=== PATIENT | male | born 1940 | race Caucasian/White ===

== ENCOUNTER 2019-07-12 18:48 | Observation (INO) | payer MEDICARE, SELFPAY ==
--- NOTE | ~2019-07-12 | XR_ITS ---
EXAMINATION: XR chest 1V portable DATE: 07/12/2019 19:31 INDICATION: Cough, dizziness and hypertension TECHNIQUE: frontal view of the chest was obtained. COMPARISON: Chest radiograph dated 12/01/04 FINDINGS: Mild bibasilar airspace opacities. No pleural effusion or pneumothorax. The cardiomediastinal silhoue tte is normal. Atherosclerotic aorta. Mild thoracic spondylosis. IMPRESSION: 1. Mild bibasilar opacities which could represent atelectasis or pneumonia. Reviewed, dictated and finalized at location A. ALLATION SPECIALIST
--- NOTE | ~2019-07-12 | CT_ITS ---
EXAMINATION: CT brain wo con DATE: 07/12/2019 19:25 INDICATION: Dizziness and acute generalized weakness TECHNIQUE: Computed tomography (CT) of the head was performed without intravenous contrast. Sagittal and coronal reconstructions were performed. The mA was adjusted according to patient size. Iterative reconstruction technique was employed. The dose-length product was 605.33 mGy-cm. COMPARISON: None FINDINGS: No acute intracranial hemorrhage, acute infarction or abnormal extra axial fluid collection. There is mild scattered white matter hypoattenuation consistent with chronic small vessel ischemic disease. S ymmetric prominence of the sulci and ventricles consistent with mild age-appropriate diffuse cerebral volume loss. No mass/mass effect. Mild to moderate mucosal thickening throughout the paranasal sinu ses. The orbits and mastoid air cells are normal. Linear scar along the right frontal scalp. Intracra nial calcified cerebral atherosclerosis is noted. IMPRESSION: 1. No acute intracranial process. 2. Age-related changes including mild to moderate diffuse volume loss and mild scattered white matter hypoattenuation consistent with chronic small vessel ischemic disease. Reviewed, dictated and finalized at location A. NCIAL PLANNING ASSISTANT IMPRESSION: 1. No acute intracranial process. 2. Age-related changes including mild to moderate diffuse volume loss and mild scattered white matter hypoattenuation consistent with chronic small vessel isc hemic disease.
--- NOTE | ~2019-07-12 | MR_ITS ---
EXAMINATION: MR brain/brain stem wo/w con DATE: 07/13/2019 11:12 INDICATION: Dizziness. TECHNIQUE: Magnetic resonance imaging (MRI) of the brain and brainstem was performed without and with 14 mL is MultiHance intravenous contrast. Sequences included sagittal and axial T1-weighted FSE, axi al diffusion-weighted FS EPI, axial T2*-weighted GRE, axial T2-weighted FLAIR Propeller, and axial T2 -weighted Propeller. Postcontrast sequences included axial and coronal T1-weighted FSE. Apparent diff usion coefficient (ADC) maps were created. COMPARISON: Head CT 07/04/2019 FINDINGS: There is no intracranial hemorrhage, acute infarction, or abnormal intracranial mass lesion . The ventricles are normal in size. There is mucosal thickening in the paranasal sinuses. The orbits are normal. The mastoid air cells are normal. IMPRESSION: 1. Normal brain. Reviewed, dictated and finalized at location A. NTORY WORKER IMPRESSION: 1. Normal brain.
--- NOTE | ~2019-07-12 | CT_ITS ---
EXAMINATION: CTA BRAIN/CAROTID DATE: 07/12/2019 23:42 INDICATION: Dizziness and generalized weakness TECHNIQUE: Computed tomographic angiography (CTA) of the head and neck was performed with 100 mL Omni paque-350 intravenous contrast. Multiplanar reconstructions and maximum intensity projection 3D-recon structions of the carotid arteries and of the intracranial arteries were created by the technologist on a separate workstation. Automated exposure control and iterative reconstruction technique were emp loyed.The dose-length product was 1154.30 mGy-cm. COMPARISON: Noncontrast head CT dated 07/12/2019 at 7:21 PM FINDINGS: Carotid arteries: There is mild atherosclerotic plaque with 0% stenosis of the right carotid bulb relative to normal di stal artery lumen diameter (NASCET criteria). There is minimal plaque with 0% stenosis of the left ca rotid bulb relative to normal distal artery lumen diameter. Mild atherosclerotic calcific location al rajendra the normal caliber aortic arch. There is asymmetric marked fatty atrophy of the left parotid glan d. Mild to moderate mucosal thickening throughout the paranasal sinuses. There is a defect in the pos terolateral wall of the left maxillary sinus. Large likely sialolith in the right submandibular duct. Postoperative changes along the mandible with cerclage wires on both the left and right mandibular r ami. Respiratory motion and extensive subsegmental atelectasis due to expiratory phase of imaging thr oughout much of the visualized upper lungs. Intracranial arteries Atherosclerotic plaque at the bilateral carotid siphons with no hemodynamically significant stenosis. The left vertebral artery is dominant. There is atherosclerotic plaque in the bilateral intracranial vertebral arteries with negligible stenosis on the left and moderate 50-70% stenosis on the right. T here are no aneurysms identified. The left A1 and P1 segments are patent. Flow to the right anterior cerebral artery supplied from the left internal carotid artery via a patent anterior communicating ar claudine. Flow to the right posterior cerebral arteries supplied by the right internal carotid artery and a patent right posterior communicating artery. Cerebral arterial arborization appears symmetric. IMPRESSION: 1. 0% stenosis of the right carotid bulb relative to normal distal artery lumen diameter (NASCET crit eria). 2. 0% stenosis of the left carotid bulb relative to normal distal artery lumen diameter. 3. Atherosclerotic plaque with moderate 50-70% stenosis at the smaller right vertebral artery. Athero sclerotic plaque without significant stenosis at the dominant left vertebral artery as well as at the bilateral carotid siphons. 4. Normal variant anatomy to the teller of [place] with left internal carotid artery supplying the rig ht anterior cerebral artery and the right internal carotid artery supplying the right posterior cereb ral artery. Reviewed, dictated and finalized at location A. CIPAL EXAMINER IMPRESSION: 1. 0% stenosis of the right carotid bulb relative to normal distal artery lumen diameter (NASCET criteria). 2. 0% stenosis of the left carotid bulb relative to normal distal artery lumen diameter. 3. Atherosclerotic plaque with moderate 50-70% stenosis at the smaller right ve rtebral artery. Atherosclerotic plaque without significant stenosis at the mathew nant left vertebral artery as well as at the bilateral carotid siphons. 4. Normal variant anatomy to the teller of [place]u with left internal carotid ar claudine supplying the right anterior cerebral artery and the right internal caroti d artery supplying the right posterior cerebral artery.
--- NOTE | ~2019-07-12 | US_ITS ---
EXAMINATION: US carotid duplex BI DATE: 07/13/2019 08:36 INDICATION: Cerebrovascular accident. TECHNIQUE: Grayscale, color Doppler, and pulsed Doppler images of the cervical carotid arteries were obtained. The degree of vessel stenosis is placed in one of the following categories: normal, <50%, 5 0-69%, >=70% but less than near-occlusion, near-occlusion, or total occlusion. Note that percent sten osis relative to normal distal artery lumen diameter is indirectly measured from velocity measurement s as described by Rogelio, et al. Radiology 2003; 229:340-346. COMPARISON: CTA neck 07/12/19. FINDINGS: RIGHT: The right common carotid artery (CCA) peak systolic velocity (PSV) is 78 cm/s. The right internal car otid artery (ICA) PSV is 72 cm/s. The right ICA end-diastolic velocity (EDV) is 12 cm/s. The right IC A/CCA PSV ratio is 0.9. Grayscale and color Doppler images yield an estimate of <50% diameter reducti on from plaque in the ICA. There is antegrade flow in the right vertebral artery. LEFT: The left CCA PSV is 103 cm/s. The left ICA PSV is 76 cm/s. The left ICA EDV is 19 cm/s. The left ICA/ CCA PSV ratio is 0.7. Grayscale and color Doppler images yield an estimate of <50% diameter reduction from plaque in the ICA. There is antegrade flow in the left vertebral artery. IMPRESSION: 1. <50% stenosis in the right internal carotid artery. 2. <50% stenosis in the left internal carotid artery. Reviewed, dictated and finalized at location A. OND ASSORTER
--- NOTE | ~2019-07-12 | NM_ITS ---
EXAMINATION: NM rosalio stress w perfusion DATE: 07/15/2019 10:59 INDICATION: Abnormal electrocardiogram. TECHNIQUE: Rest images were obtained following intravenous administration of 9.6 mCi Tc99m tetrofosmi n (Myoview). The patient was infused intravenously with Lexiscan (regadenoson). Then, 33.3 mCi Tc99m tetrofosmin (Myoview) was administered intravenously, and stress images were obtained. Data was recon structed into short axis and horizontal and vertical long axis SPECT images. Gated SPECT images were also obtained. COMPARISON: Myocardial perfusion imaging 12/02/2004 FINDINGS: There is a small, mild, fixed perfusion defect involving left ventricular apex and apical i nferior segment, consistent with infarct. No reversible component to suggest ischemia.. There is no segmental wall motion abnormality. Left ventricular ejection fraction measures 56%. IMPRESSION: 1. Small area of mild infarct involving left ventricular apex and apical inferior segment. 2. Normal left ventricular ejection fraction measuring 56%. Reviewed, dictated and finalized at location A. ERING KILN TENDER IMPRESSION: 1. Small area of mild infarct involving left ventricular apex and apical inferi or segment. 2. Normal left ventricular ejection fraction measuring 56%.
[2019-07-12 19:03] VITALS: BP 161/94; PULSE 92; RESP 18; TEMP 36.6; O2SAT 99
--- NOTE | 2019-07-12 19:03 | ED.DIZZY ---
HPI - Dizziness General Chief Complaint: Dizziness Stated Complaint: dizziness Time Seen by Provider: 07/12/19 19:02 Source: patient Mode of arrival: ambulatory Limitations: no limitations History of Present Illness HPI Narrative: The pt is a 78 y/o male who presents to the ED with c/o dizziness that began 1 hour ago. 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 The dizziness is alleviated with sitting still. Per family, the pt was having trouble using the phone, explaining that he knew how to hold it but did not remember how to use it. The pt reports dry mouth and numbness/tingling in his lt hand. Per family, his lt hand has been numb and feels like it is falling asleep for the past 2 days. He is on ASA. MD elicited complaint: dizziness Onset (ago): hour(s) (1) Description: room spinning Relieving factors: other (sitting still) Associated symptoms: other (dry mouth, numbness/tingling in lt hand) Related Data Home Medications Medication Instructions Recorded Confirmed atorvastatin 07/13/19 Allergies Allergy/AdvReac Type Severity Reaction Status Date / Time No Known Allergies Allergy Unknown Verified 08/13/16 19:35 Review of Systems Review of Systems: All systems reviewed & are unremarkable except as noted in HPI and below ENT: Reports dry mouth Neurologic: Reports dizziness and Reports other (numbness/tingling in lt hand) [facility] Past Medical History Medical History (Updated 07/13/19 @ 01:31 by Paul Ann MD) Back injury GERD (gastroesophageal reflux disease) Hepatitis Irregular heartbeat Type 2 diabetes mellitus Surgical History Surgical History (Updated 07/12/19 @ 19:13 by Lakeisha Walls) H/O Spinal surgery Hx of appendectomy Social History Social History (Updated 07/12/19 @ 19:13 by Lakeisha Walls) Smoking status: Never smoker Exam Narrative: Exam Narrative: APPEARANCE: No acute distress, nontoxic, resting in bed HEENT: Normocephalic, atraumatic, OMM, TMs clear bilaterally EYES: PERRL, EOMI NECK: Supple, nontender, full range of motion without pain, no meningismus RESPIRATORY: No respiratory distress, clear to auscultation bilaterally with no rhonchi wheezing or rales CARDIOVASCULAR: RRR s murmur ABDOMINAL: Soft, nontender, nondistended MUSCULOSKELETAL: Moves all extremities. No clubbing, cyanosis or edema. NEURO: A and O ?3, following commands, speech normal, cranial nerves II through XII grossly intact,muscle strength 5 out of 5 bilateral upper and lower extremities no pronator drift decreased sensation left upper extremity compared to right lower extremity SKIN:: Warm, dry. Normal Color PSYCHIATRIC: Normal affect/mood Course Course Emergency Course: Had long conversation with the patient as well as is present and son. Patient states he has been having some intermittent feelings of his arm falling asleep in his left arm. It appears that the symptoms have been worse over the past 2 days. Per the son and [id number] that are present patient just told him about the symptoms yesterday. 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 The patient's states he just became dizzy this evening. At this time there is no definitive onset of symptoms. The patient's dizziness just began this evening concern with the patient's feeling of his arm falling asleep and numbness over the past day and a half and questionable weaker superintendent operations division today. At this time secondary to no definitive known onset I do not believe the patient is a candidate for TPA and will plan for admission with further inpatient work-up He is remained awake and alert he on repeat exam is able to answer all questions but believes is [address] [place], [place] [id number]
--- NOTE | 2019-07-12 19:05 | ECG_ITS ---
Measurements Intervals [place] Rate: 87 P: 48 UT: 168 QRS: -53 QRSD: 115 T: 79 QT: 371 QTc: 446 Interpretive Statements SINUS RHYTHM VENTRICULAR COUPLETS AND VENTRICULAR BIGEMINY LEFT ANTERIOR FASCICULAR BLOCK ABNORMAL ECG Electronically Signed On 07-12-2019 20:35:32 PRINT PROJECT MANAGER by Haresh Carrion D.O.
--- NOTE | 2019-07-12 19:10 | PC.NURSE ---
assumed care of pt at this time. report from BUD quiroga
[2019-07-12 19:20] VITALS: BP 151/100; PULSE 91; RESP 18; O2SAT 98
--- NOTE | 2019-07-12 19:30 | PC.NURSE ---
pt to xray
[2019-07-12 19:40] LABS: Basophils Percent Auto 0.5 % (0.2-1.2); Eosinophils Absolute Auto 0.3 K/mm3 (0-0.3); Hematocrit 41.2 % (42.0-52.0); Hemoglobin 13.4 g/dL (14.0-18.0); Immature Granulocyte Absolute 0.03 K/mm3 (0.00-0.031); Immature Granulocyte Percent A 0.4 % (0-0.5); Lymphocytes Absolute Auto 1.93 K/mm3 (0.9-3.2); Mean Corpuscular HGB Conc 32.5 g/dl (32-36); Mean Corpuscular Hemoglobin 30.9 pg (26-34); Mean Corpuscular Volume 94.9 fl (80-100); Monocytes Absolute Auto 0.5 K/mm3 (0.1-0.6); Monocytes Percent Auto 6.6 % (2.6-8.5); Neutrophils Absolute Auto 4.9 K/mm3 (1.3-6.7); Neutrophils Percent Auto 63.5 % (45.5-73.1); Platelet Count Result 184 k/mm3 (150-375); Red Blood Count 4.34 M/mm3 (4.6-6.20); Red Cell Distribution Width 13.3 % (11.5-14.5); White Blood Count 7.7 K/mm3 (4.5-10.0)
[2019-07-12 19:48] LABS: INR 1.1; Prothrombin Time 13.4 Seconds (11.1-14.7)
[2019-07-12 19:49] LABS: Partial Thromboplastin Time 26.4 SECONDS (22.3-36.8)
[2019-07-12 19:50] LABS: Alanine Aminotransferase 23 U/L (4-50); Albumin Level 4.3 g/dL (3.5-5.1); Alkaline Phosphatase 62 U/L (38-126); Aspartate Amino Transferase 34 U/L (17-59); Bilirubin,Total 0.7 mg/dL (0.2-1.3); Blood Urea Nitrogen 34 mg/dL (9-20); Calcium 9.4 mg/dL (8.4-10.2); Carbon Dioxide 29 mmol/L (22-30); Chloride 101 mmol/L (98-107); Estimated CRCL calculation 57 ml/min; Estimated Glomerular Filt Rate > 60; Glucose 219 mg/dL (75-110); Potassium 3.8 mmol/L (3.4-5.0); Sodium 139 mmol/L (137-145)
[2019-07-12] MEDS: LACTATED RINGERS 1,000 ML 999 ML IV CONT (19:53)
[2019-07-12] MEDS: MECLIZINE HCL 12.5 MG TABLET PO (19:53)
[2019-07-12 19:54] VITALS: BP 137/59; PULSE 87
[2019-07-12 19:55] VITALS: BP 158/73
[2019-07-12 20:02] LABS: Troponin I < 0.012 ng/mL (0.000-0.034)
[2019-07-12] MEDS: ONDANSETRON INJ 4 MG/2 ML VIAL IV PUSH (20:08)
[2019-07-12 20:09] LABS: Add Urine Microscopic? YES; Appearance Urine Clear (Clear); Bilirubin Urine Negative (Negative); Blood Urine Negative (Negative); Color Urine Yellow (Yellow); Glucose Urine UA 3+ mg/dL (Negative); Ketones Urine Trace mg/dL (Negative); Leukocyte Esterase Ur Negative LEU/UL (Negative); Mucus Urine Rare /lpf; Nitrate Urine Negative (Negative); Protein Urine 1+ mg/dL (Negative); RBC Urine 0-2 /hpf (0-2); Squamous Epithelial Cell Urine Rare /hpf (Few); WBC Urine 0-3 /hpf
[2019-07-12 20:13] LABS: Magnesium 1.9 mg/dL (1.6-2.3)
[2019-07-12 21:00] VITALS: BP 124/66; PULSE 79; RESP 18; O2SAT 97
[2019-07-12] MEDS: DIAZEPAM 2 MG TABLET PO (21:05)
[2019-07-12 22:20] VITALS: BP 137/57; PULSE 79; RESP 16; TEMP 36.4; O2SAT 99
--- NOTE | 2019-07-12 22:25 | ECG_ITS ---
Measurements Intervals [place] Rate: 79 P: 51 NV: 163 QRS: -50 QRSD: 109 T: 59 QT: 372 QTc: 428 Interpretive Statements SINUS RHYTHM VENTRICULAR BIGEMINY LEFT ANTERIOR FASCICULAR BLOCK ABNORMAL ECG Electronically Signed On 07-13-2019 9:27:52 BAND HEAD SAW OPERATOR by Haresh Carrion D.O.
[2019-07-12] MEDS: ASPIRIN 81 MG CHEWABLE TABLET 324 MG PO (23:27)
[2019-07-13] VITALS (16 sets, daily range): BP systolic 104–149; BP diastolic 42–65; PULSE 48–78; RESP 15–18; TEMP 36.1–36.6; O2SAT 96–100; BMI 26.2
--- NOTE | 2019-07-13 01:20 | PM.IMHP ---
H&P: HPI History of Present Illness Chief complaint: CVA Narrative: This is a pleasant 78 year old Diabetic male who presented to the [facility] with a complaint of dizziness and lightheadedness that started around 5 pm yesterday evening. 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 His symptoms started when he stood up. His family also has noticed that he appears to have a left sided facial droop and they report that he also had difficulty swallowing for more than 30 minutes before arriving to the ER. When his symptoms began the patient appeared confused and disoriented. He could not ambulate without assistance. The patient's only other focal symptom includes numbness and tingling of his LUE including the fingers on left hands. He does admit that he has had numbness and tingling of his left upper extremity intermittently for various months. He denies any seizure like activity recent, passing out, or head trauma. He has never had a stroke before. We have been asked to admit the paitent to the hospital for stroke rule out. While in the ER the patient did have various episodes of Bigeminy. He denies any palpitations or chest pain. He also denies headache, photophobia, sore throat, abdominal pain, dysuria, diarrhea or rectal bleeding. No other complaints. Review of Systems Review of Systems: All systems reviewed & are unremarkable except as noted in HPI and below Neurologic: Denies Sensory deficit (Neuro) PMFSH Past Medical History Medical History Back injury GERD (gastroesophageal reflux disease) Hepatitis Irregular heartbeat Type 2 diabetes mellitus Surgical History Surgical History H/O Spinal surgery Hx of appendectomy Social History Social History Smoking status: Never smoker Alcohol intake: current Drinks per week: 6 Substance use: never Gender identity (if verbalized by the patient): Male Spiritual care concerns: No Agree to blood products: Yes Meds Home Medications and Allergies Home Medications Medication Instructions Recorded Confirmed Type aspirin [Adult Low Dose Aspirin] 81 mg PO DAILY 07/13/19 07/13/19 History atorvastatin 40 mg PO DAILY 07/13/19 07/13/19 History esomeprazole magnesium [Nexium] 20 mg PO DAILY 07/13/19 07/13/19 History gabapentin 300 mg PO HS 07/13/19 07/13/19 History metformin 1,000 mg PO BID 07/13/19 07/13/19 History Allergies Allergy/AdvReac Type Severity Reaction Status Date / Time No Known Allergies Allergy Unknown Verified 08/13/16 19:35 Vital Signs Vital Signs - 24 hr 07/12/19 19:03 07/12/19 19:20 07/12/19 19:54 Temperature 36.6 C Pulse Rate 92 91 87 Respiratory Rate 18 18 Blood Pressure 161/94 H 151/100 H 137/59 L Pulse Oximetry 99 98 07/12/19 19:55 07/12/19 21:00 07/12/19 22:20 Temperature 36.4 C L Pulse Rate 79 79 Respiratory Rate 18 16 Blood Pressure 158/73 H 124/66 137/57 L Pulse Oximetry 97 99 07/13/19 00:18 07/13/19 00:58 07/13/19 01:13 Temperature 36.6 C 36.2 C L Pulse Rate 73 57 L 65 Respiratory Rate 15 15 18 Blood Pressure 131/55 L 142/63 H 146/65 H Pulse Oximetry 98 100 98 Exam Const: General: cooperative, healthy appearing, no acute distress, alert and awake Nutritional Appearance: well nourished Orientation/consciousness: patient oriented x3 HENMT: Head: normal to inspection General nose exam: Normal external nose present Face and sinus: normal facial exam Mouth: Yes Normal oral and palatal mucosa present and Yes oropharynx normal Eyes: Pupils: Equal, round and reactive pupils present EOM: EOMs intact bilaterally Neck: Neck: supple and no JVD Thyroid: thyroid normal Lymphatic: lymphadenopathy not noted Resp: E
[2019-07-13] MEDS: LACTATED RINGERS 1,000 ML 125 ML IV CONT (01:23)
--- NOTE | 2019-07-13 01:34 | ADMGEN ---
This patient, Jose Tolentino, was admitted to IMU Room 210-01 at 0115. Patient/family oriented to hospital policies and general routines including ID bracelet, bed and alarms, visiting hours, pain management, procedures, bathroom and other care routines, personal items, smoking policy, room service/diet, and visiting hours. Valuables list has been completed. Information on how to activate the Rapid Response Team has been discussed. Patient/Family are encouraged to report perceived risks to care and to ask questions if they do not understand what they are told or what they should do.
[2019-07-13 01:58] LABS: Troponin I < 0.012 ng/mL (0.000-0.034)
[2019-07-13 04:36] LABS: Cholesterol 110 mg/dL (0-200); HDL Direct 48 mg/dL; Triglycerides 52 mg/dL (<150)
[2019-07-13 04:47] LABS: LDL Cholesterol Direct 51 mg/dL
[2019-07-13 04:48] LABS: Troponin I < 0.012 ng/mL (0.000-0.034)
[2019-07-13 05:43] LABS: Folic Acid 19.2 ng/mL (2.76->20)
[2019-07-13 05:46] LABS: Thyroid Stimulating Hormone Reflex 0.894 uIU/mL (0.465-4.68)
--- NOTE | 2019-07-13 09:13 | PM.CNCAR ---
Assessment and Plan Assessment and plan (1) Hyperlipidemia: Qualifiers: Hyperlipidemia type: unspecified Qualified Code(s): E78.5 - Hyperlipidemia, unspecified Code(s): E78.5 - Hyperlipidemia, unspecified Status: Chronic (2) NSVT (nonsustained ventricular tachycardia): Code(s): I47.2 - Ventricular tachycardia Status: Acute Assessment and Plan: IL ruled out by series of troponins. Check echo. Check Mag level. Start Metoprolol Tartate 25 mg BID. Lexiscan myoview stress test on Monday. Consider Amiodarone to prevent recurrences. (3) CAD (coronary artery disease): Code(s): I25.10 - Atherosclerotic heart disease of [place] coronary artery without angina pectoris Status: Acute Assessment and Plan: Obtain last cath report from [facility] in [id number]. (4) Acute encephalopathy: Code(s): G93.40 - Encephalopathy, unspecified Status: Acute Assessment and Plan: Neurology consulted. History of Present Illness History of Present Illness Consult date/time: 07/13/19 09:13 Consult regarding ventricular bigeminy. 78 yr old man with history of CAD and stent placement at [facility] in [id number] time frame, DM, dyslipidemia presents to ED for dizziness. 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 He started to feel dizziness/lightheadedness, family members noted facial droop, he had difficulty swallowing for 30 minutes, he was confused and could not ambulate. Symptoms appear to have resolved. Denies chest pain, sob, palpitations, orthopnea, edema. EKG shows Sinus rhythm with ventricular couplet and ventricular bigeminy. On Telemetry he has frequent ventricular couplets, triplets and up to 4 beat NSVT. Reason For Visit: CVA Review of Systems Review of Systems: All systems reviewed & are unremarkable except as noted in HPI and below Constitutional: Constitutional: Reports as per HPI Cardiovascular: Cardiovascular: Reports as per HPI, Denies chest pain, Denies leg edema, Reports lightheadedness and Denies palpitations Respiratory: Respiratory: Reports as per HPI and Denies dyspnea on exertion Gastrointestinal: Gastrointestinal: Reports as per HPI and Denies abdominal pain Genitourinary: Genitourinary: Reports as per HPI Musculoskeletal: Musculoskeletal: Reports as per HPI Neurologic: Reports as per HPI, Reports abnormal gait and Reports confusion ON LICENSE OF [facility] Past Medical History Medical History Back injury GERD (gastroesophageal reflux disease) Hepatitis Irregular heartbeat Type 2 diabetes mellitus Surgical History Surgical History H/O Spinal surgery Hx of appendectomy Social History Social History Smoking status: Never smoker Alcohol intake: current Drinks per week: 6 Substance use: never Gender identity (if verbalized by the patient): Male Spiritual care concerns: No Agree to blood products: Yes Meds Home Medications and Allergies Home Medications Medication Instructions Recorded Confirmed Type aspirin [Adult Low Dose Aspirin] 81 mg PO DAILY 07/13/19 07/13/19 History atorvastatin 40 mg PO DAILY 07/13/19 07/13/19 History esomeprazole magnesium [Nexium] 20 mg PO DAILY 07/13/19 07/13/19 History gabapentin 300 mg PO HS 07/13/19 07/13/19 History metformin 1,000 mg PO BID 07/13/19 07/13/19 History Allergies Allergy/AdvReac Type Severity Reaction Status Date / Time No Known Allergies Allergy Unknown Verified 08/13/16 19:35 Vital Signs Vital Signs - 24 hr 07/12/19 19:03 07/12/19 19:20 07/12/19 19:54 Temperature 97.8 F Pulse Rate 92 91 87 Respiratory Rate 18 18 Blood Pressure 161/94 H 151/100 H 137/59 L Pulse Oximetry 99 98 07/12/19 19:55 07/12/19 21:00 07/12/19 22:20 Temperature 9
[2019-07-13] MEDS: metFORMIN HCL 500 MG TABLET 1000 MG PO ×2 (11:19→18:07)
[2019-07-13] MEDS: ACETAMINOPHEN 325 MG TABLET 650 MG PO (11:19)
[2019-07-13] MEDS: PANTOPRAZOLE 40 MG TABLET PO (11:20)
[2019-07-13] MEDS: METOPROLOL TARTRATE 25 MG TABLET PO ×2 (11:21→20:58)
[2019-07-13] MEDS: ATORVASTATIN 40 MG TABLET PO (11:21)
[2019-07-13] MEDS: MAGNESIUM SULF 1 GM/D5W 100 ML 1 GM/100 ML BAG IVPB (11:24)
[2019-07-13] MEDS: ASPIRIN 81 MG CHEWABLE TABLET 324 MG PO (11:40)
[2019-07-13] MEDS: POTASSIUM CHLORIDE 20 MEQ TABLET PO (12:43)
--- NOTE | 2019-07-13 13:24 | CONS_ITS ---
DATE OF CONSULTATION: HISTORY OF PRESENT ILLNESS: A 78-year-old right-handed male, has been admitted to [facility] with the complaint of dizziness since 5 p.m. yesterday evening with history of additional hard physical labor for various hours before his symptomatology began. 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 At that time, he was noted to have left-sided facial droop in addition to difficulties in swallowing for 30 minutes before arriving to the ER. On initial arrival in the emergency room, he was notedly confused and disoriented, was unable to ambulate without assistance, and complained of tingling sensation of his left upper extremity involving the fingers of the left hand. He also admitted that he has had numbness and tingling of his left upper extremity intermittently for several months. He gave no history of seizure-like activity or stroke in the past, though he has had episodic bigeminy without any chest pain or associated cardiac symptoms. PAST MEDICAL HISTORY: He does have a history of 1. Back injury. 2. GERD. 3. Hepatitis. 4. Irregular heart beat. 5. Type 2 diabetes mellitus. 6. Spinal surgery. 7. Appendectomy. SOCIAL HISTORY: He is a never smoker. Drinks 6 drinks per week. MEDICATIONS: Has been takin. Aspirin 81 mg daily. 2. Atorvastatin 40 mg daily. 3. Nexium 20 mg daily. 4. Gabapentin 300 at night. 5. Metformin 1000 mg twice a day. ALLERGIES: HE IS NOT ALLERGIC TO ANY MEDICATION. PHYSICAL EXAMINATION: VITAL SIGNS: On admission, he was noted to have no temperature, pulse 92, respiration 18, blood pressure 161/94, which came down to 137/59. GENERAL: Awake, alert, cooperative. HEENT: Head normocephalic with no cranial bruit. Ear, nose, throat examination normal. NECK: Supple with no cervical bruit. No thyromegaly. No lymphadenopathy. HEART: Regular with no murmur. LUNGS: Clear to auscultation. ABDOMEN: Soft with no organomegaly. NEUROLOGICAL: Awake, alert, oriented x3. His speech no dysphasic, no dysarthric, no dysphonic. Pupils round, regular. Flores of vision full. Extraocular movements full. Face symmetrical. Tongue midline. Motor examination revealed symmetrical strength in upper and lower extremities with 1+ deep tendon reflexes. Downgoing plantar responses and no evidence of ataxia or dysmetria on adloiv-rd-tcip-to-finger. LABORATORY DATA: Evaluation up until now revealed CBC with 7.7 WBC, hemoglobin 13.4, platelet count 184, normal basic metabolic panel except blood sugar of 219. Troponin less than 0.012. Hepatic enzymes normal. UA negative except 1+ protein, 3+ glucose. Initial CT scan negative for bleed except the moderate diffuse volume loss and scattered white matter hypoattenuation, consistent with chronic small vessel disease. Had an MRI, which documented no abnormality. Carotid Doppler studies have also been done, which is less than 50% stenosis bilaterally. 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 Left vertebral artery and bilateral carotid siphons are normal. Chest x-ray negative except mild bibasilar opacities. 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 We will continue aspirin 81 mg daily along with the atorvastatin 40 mg daily and follow as an outpatient. Considering that he is diabetic, he should be encouraged to follow the instructi
--- NOTE | 2019-07-13 14:46 | PM.IMPN ---
Progress Note: A&P Assessment and Plan (1) TIA (transient ischemic attack): Code(s): G45.9 - Transient cerebral ischemic attack, unspecified Status: Acute Assessment and Plan: Manifested by paresthesias left upper extremity, loss of balance, difficulty with speech. CTA of the neck revealed a 50-70% and right vertebral artery occlusion and his symptoms could have been brainstem in etiology MR showed no acute infarct and echo is pending, continue aspirin and statin as per Neurology (2) Bigeminy: Code(s): I49.9 - Cardiac arrhythmia, unspecified Status: Acute Assessment and Plan: Apparently has long history of ventricular ectopy according to patient. Check magnesium, echo, and Cardiology may do stress test further evaluate (3) Type 2 diabetes mellitus: Qualifiers: Diabetes mellitus longterm insulin use: without rn long term care use Diabetes mellitus complication status: without complication Qualified Code(s): E11.9 - Type 2 diabetes mellitus without complications Code(s): E11.9 - Type 2 diabetes mellitus without complications Status: Acute Assessment and Plan: Can continue metformin at present time and sliding scale (4) Hyperlipidemia: Qualifiers: Hyperlipidemia type: unspecified Qualified Code(s): E78.5 - Hyperlipidemia, unspecified Code(s): E78.5 - Hyperlipidemia, unspecified Status: Chronic Assessment and Plan: Continue statin (5) DVT prophylaxis: Code(s): Z29.9 - Encounter for prophylactic measures, unspecified Status: Acute Assessment and Plan: Lovenox Subjective Date/time seen: 07/13/19 14:46 Interval history: Date of visit . 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 Presented to the emergency room past 6 hours of the initial episode and symptoms have been started to resolve. He was noted to have bigeminy which she did not notice and admitted for evaluation treatment of the same. Patient gives history of longterm of an irregular heartbeat and having had cardiac catheterization in the past. Exam Narrative: Exam Narrative: Blood pressure 122/44 pulse is rated at 60 and bigeminal by exam Pupils equal reactive to light sclera anicteric Mouth normal Neck no no carotid bruit Lungs clear CV irregular with appears to be bigeminal rhythm on exam no murmurs Abdomen is soft nontender Extremities without edema distal pulses are 2+ Neuro he is alert he is oriented cranial nerves 2-12 are intact, rfczho-iy-crze is intact, could symmetrical hand manager safe Psych affect appropriate Objective Data Vital Signs Vital Signs: Vital Signs - 24 hr 07/12/19 19:03 07/12/19 19:20 07/12/19 19:54 Temperature 36.6 C Pulse Rate 92 91 87 Respiratory Rate 18 18 Blood Pressure 161/94 H 151/100 H 137/59 L Pulse Oximetry 99 98 07/12/19 19:55 07/12/19 21:00 07/12/19 22:20 Temperature 36.4 C L Pulse Rate 79 79 Respiratory Rate 18 16 Blood Pressure 158/73 H 124/66 137/57 L Pulse Oximetry 97 99 07/13/19 00:18 07/13/19 00:58 07/13/19 01:13 Temperature 36.6 C 36.2 C L Pulse Rate 73 57 L 65 Respiratory Rate 15 15 18 Blood Pressure 131/55 L 142/63 H 146/65 H Pulse Oximetry 98 100 98 07/13/19 02:00 07/13/19 04:00 07/13/19 05:37 Temperature 36.3 C L Pulse Rate 68 78 63 Respiratory Rate 18 Blood Pressure 149/53 H Pulse Oximetry 98 07/13/19 08:00 07/13/19 10:00 07/13/19 12:00 Temperature 36.1 C L 36.2 C L Pulse Rate 54 L 56 L 68 Respiratory Rate 16 16 Blood Pressure 146/59 H 122/43 L Pulse Oximetry 100 99 07/13/19 14:00 Temperature Pulse Rate 54 L Respiratory Rate Blood Pressure Pulse Oximetry Intake/Output Intake/Output: Intake & Output 07/10/19 07/11/19 07/12/19 07/13/19 23:59 23:59 23:59 23:59 Intake Total 1000 720 Output Total 2325 Balance 1000 -1605 M
[2019-07-13] MEDS: ENOXAPARIN 40 MG/0.4 ML SYRINGE SUB-Q (18:08)
[2019-07-13] MEDS: GABAPENTIN 300 MG CAPSULE PO (20:58)
[2019-07-14] VITALS (16 sets, daily range): BP systolic 100–151; BP diastolic 41–64; PULSE 40–73; RESP 16–18; TEMP 36.1–36.8; O2SAT 97–100
[2019-07-14 05:13] LABS: Basophils Percent Auto 0.5 % (0.2-1.2); Eosinophils Absolute Auto 0.4 K/mm3 (0-0.3); Eosinophils Percent Auto 5.9 % (0-4.4); Hematocrit 40.5 % (42.0-52.0); Hemoglobin 13.2 g/dL (14.0-18.0); Immature Granulocyte Absolute 0.03 K/mm3 (0.00-0.031); Immature Granulocyte Percent A 0.5 % (0-0.5); Lymphocytes Absolute Auto 2.04 K/mm3 (0.9-3.2); Lymphocytes Percent Auto 30.9 % (18.3-44.2); Mean Corpuscular HGB Conc 32.6 g/dl (32-36); Mean Corpuscular Hemoglobin 31.4 pg (26-34); Mean Corpuscular Volume 96.4 fl (80-100); Mean Platelet Volume 11.6 fl (7.4-10.4); Monocytes Absolute Auto 0.4 K/mm3 (0.1-0.6); Monocytes Percent Auto 6.4 % (2.6-8.5); Neutrophils Absolute Auto 3.7 K/mm3 (1.3-6.7); Neutrophils Percent Auto 55.8 % (45.5-73.1); Platelet Count Result 175 k/mm3 (150-375); Red Cell Distribution Width 13.5 % (11.5-14.5); White Blood Count 6.6 K/mm3 (4.5-10.0)
[2019-07-14 05:29] LABS: Blood Urea Nitrogen 25 mg/dL (9-20); Calcium 8.8 mg/dL (8.4-10.2); Carbon Dioxide 29 mmol/L (22-30); Chloride 102 mmol/L (98-107); Estimated CRCL calculation 58 ml/min; Estimated Glomerular Filt Rate > 60; Glucose 118 mg/dL (75-110); Potassium 4.7 mmol/L (3.4-5.0); Sodium 140 mmol/L (137-145)
--- NOTE | 2019-07-14 09:22 | PM.PNCARD ---
Progress Note: A&P Assessment and Plan (1) CAD (coronary artery disease): Code(s): I25.10 - Atherosclerotic heart disease of [place] coronary artery without angina pectoris Status: Acute (2) NSVT (nonsustained ventricular tachycardia): Code(s): I47.2 - Ventricular tachycardia Status: Acute Assessment and Plan: Give Mag Trent yesterday and started Metoprolol. Decreased number of ventricular ectopies and no more runs of NSVT. Scheduled Lexiscan myoview stress test in AM and echo to be done in AM. If unremarkable, and no longer having NSVT, may be d/c home. (3) Hyperlipidemia: Qualifiers: Hyperlipidemia type: unspecified Qualified Code(s): E78.5 - Hyperlipidemia, unspecified Code(s): E78.5 - Hyperlipidemia, unspecified Status: Chronic Subjective Date/time seen: 07/14/19 09:22 Denies chest pain, sob, lightheadedness. Exam Const: General: comfortable and no acute distress Neck: Neck: no JVD Carotids: no bruits Resp: Auscultation: clear to auscultation bilaterally, no crackles, no rales, no rhonchi and no wheezes Cardio: Rate: regular rate Rhythm: regular rhythm Heart sounds: no murmurs Other: premature beats GI: Inspection: non-distended Neuro: Speech: normal speech Extrem: Right lower extremity: no edema Left lower extremity: no edema Objective Data Vital Signs Vital Signs: Vital Signs - 24 hr 07/13/19 10:00 07/13/19 12:00 07/13/19 14:00 Temperature 97.1 F L Pulse Rate 56 L 68 54 L Respiratory Rate 16 Blood Pressure 122/43 L Pulse Oximetry 99 07/13/19 16:00 07/13/19 18:00 07/13/19 19:47 Temperature 97.6 F 97.3 F L Pulse Rate 56 L 58 L 77 Respiratory Rate 16 16 Blood Pressure 104/42 L 111/42 L Pulse Oximetry 96 99 07/13/19 20:00 07/13/19 20:58 07/13/19 22:00 Temperature Pulse Rate 57 L 66 48 L Respiratory Rate Blood Pressure Pulse Oximetry 07/14/19 00:00 07/14/19 00:04 07/14/19 02:00 Temperature 97 F L Pulse Rate 40 L 40 L 45 L Respiratory Rate 18 Blood Pressure 100/41 L Pulse Oximetry 98 07/14/19 04:00 07/14/19 06:00 07/14/19 08:00 Temperature 97 F L 97.5 F L Pulse Rate 43 L 48 L 58 L Respiratory Rate 16 16 Blood Pressure 130/64 123/56 L Pulse Oximetry 99 100 Intake/Output Intake/Output: Intake & Output 07/11/19 07/12/19 07/13/19 07/14/19 23:59 23:59 23:59 23:59 Intake Total 1000 960 Output Total 2575 100 Balance 1000 -1615 -100 Meds/Results Medications: Active Medications Generic Name Dose Route Start Last Admin Trade Name Freq PRN Reason Stop Dose Admin Acetaminophen 650 mg 07/13/19 09:52 07/13/19 11:19 Tylenol Tablet PO 650 mg Q6H PRN Administration Mild Pain (1-3) or Fever Aspirin 324 mg 07/13/19 08:00 07/13/19 11:40 Aspirin Chewable PO 324 mg DAILY@0800 DONNA Administration Atorvastatin Calcium 40 mg 07/13/19 09:00 07/13/19 11:21 Lipitor PO 40 mg DAILY DONNA Administration Enoxaparin Sodium 40 mg 07/13/19 21:00 07/13/19 18:08 Lovenox SUB-Q 40 mg HS DONNA Administration Gabapentin 300 mg 07/13/19 21:00 07/13/19 20:58 Neurontin PO 300 mg HS DONNA Administration Metformin HCl 1,000 mg 07/13/19 08:00 07/13/19 18:07 Glucophage PO 1,000 mg BIDWM DONNA Administration Metoprolol Tartrate 25 mg 07/13/19 09:25 07/13/19 20:58 Lopressor PO 25 mg Q12HR DONNA Administration Pantoprazole Sodium 40 mg 07/13/19 09:00 07/13/19 11:20 Protonix PO 40 mg QAM DONNA Administration Radiology Results: ITS Impressions Head CT 07/12/19 19:31 IMPRESSION: 1. No acute intracranial process. 2. Age-related changes including mild to moderate diffuse volume loss and mild scattered white matter hypoattenuation consistent with chronic small vessel ischemic disease. Chest X-Ray 07/12/19 19:34 IMPRESSION: 1. Mild bibasilar opacities which could represent atelectasis or pneumonia.
[2019-07-14] MEDS: ASPIRIN 81 MG CHEWABLE TABLET 324 MG PO (09:25)
[2019-07-14] MEDS: ATORVASTATIN 40 MG TABLET PO (09:26)
[2019-07-14] MEDS: metFORMIN HCL 500 MG TABLET 1000 MG PO ×2 (09:26→17:35)
[2019-07-14] MEDS: PANTOPRAZOLE 40 MG TABLET PO (09:30)
--- NOTE | 2019-07-14 13:15 | WPDNEUROPN ---
Progress Note: A&P Assessment and Plan (1) DVT prophylaxis: Code(s): Z29.9 - Encounter for prophylactic measures, unspecified Status: Acute (2) TIA (transient ischemic attack): Code(s): G45.9 - Transient cerebral ischemic attack, unspecified Status: Acute (3) CAD (coronary artery disease): Code(s): I25.10 - Atherosclerotic heart disease of [place] coronary artery without angina pectoris Status: Acute (4) NSVT (nonsustained ventricular tachycardia): Code(s): I47.2 - Ventricular tachycardia Status: Acute (5) Hyperlipidemia: Qualifiers: Hyperlipidemia type: unspecified Qualified Code(s): E78.5 - Hyperlipidemia, unspecified Code(s): E78.5 - Hyperlipidemia, unspecified Status: Chronic (6) Numbness and tingling of left upper extremity: Code(s): R20.0 - Anesthesia of skin; R20.2 - Paresthesia of skin Status: Chronic (7) GERD (gastroesophageal reflux disease): Qualifiers: Esophagitis presence: esophagitis presence not specified Qualified Code(s): K21.9 - Gastro-esophageal reflux disease without esophagitis Code(s): K21.9 - Gastro-esophageal reflux disease without esophagitis Status: Acute (8) Type 2 diabetes mellitus: Qualifiers: Diabetes mellitus halfway insulin use: without halfway use Diabetes mellitus complication status: without complication Qualified Code(s): E11.9 - Type 2 diabetes mellitus without complications Code(s): E11.9 - Type 2 diabetes mellitus without complications Status: Acute (9) Bigeminy: Code(s): I49.9 - Cardiac arrhythmia, unspecified Status: Acute (10) Acute encephalopathy: Code(s): G93.40 - Encephalopathy, unspecified Status: Acute Additional Plan cosidering CTA report needs to continue aspirin 325 mg daily Review of Systems Review of Systems: All systems reviewed & are unremarkable except as noted in HPI and below Exam Const: General: cooperative and no acute distress Eyes: General: appearance normal, both eyes and all related structures Pupils: Equal, round and reactive pupils present Neck: Neck: full ROM Resp: Effort & Inspection: normal respiratory effort Cardio: Rate: regular rate Rhythm: regular rhythm GI: Auscultation: normal bowel sounds Neuro: General: patient oriented x3 Cranial nerves: Yes CN's II-XII intact bilaterally Speech: normal speech Motor exam (neuro): 5/5 motor strength present throughout Psych: Appearance: grossly normal Objective Data Vital Signs Vital Signs: Vital Signs - 24 hr 07/13/19 14:00 07/13/19 16:00 07/13/19 18:00 Temperature 36.4 C Pulse Rate 54 L 56 L 58 L Respiratory Rate 16 Blood Pressure 104/42 L Pulse Oximetry 96 07/13/19 19:47 07/13/19 20:00 07/13/19 20:58 Temperature 36.3 C L Pulse Rate 77 57 L 66 Respiratory Rate 16 Blood Pressure 111/42 L Pulse Oximetry 99 07/13/19 22:00 07/14/19 00:00 07/14/19 00:04 Temperature 36.1 C L Pulse Rate 48 L 40 L 40 L Respiratory Rate 18 Blood Pressure 100/41 L Pulse Oximetry 98 07/14/19 02:00 07/14/19 04:00 07/14/19 06:00 Temperature 36.1 C L Pulse Rate 45 L 43 L 48 L Respiratory Rate 16 Blood Pressure 130/64 Pulse Oximetry 99 07/14/19 08:00 07/14/19 12:00 Temperature 36.4 C L 36.3 C L Pulse Rate 58 L 64 Respiratory Rate 16 18 Blood Pressure 123/56 L 129/56 L Pulse Oximetry 100 98 Intake/Output Intake/Output: Intake & Output 07/11/19 07/12/19 07/13/19 07/14/19 23:59 23:59 23:59 23:59 Intake Total 1000 960 240 Output Total 2575 100 Balance 1000 -1615 140 Meds/Results Medications: Active Medications Generic Name Dose Route Start Last Admin Trade Name Freq PRN Reason Stop Dose Admin Acetaminophen 650 mg 07/13/19 09:52 07/13/19 11:19 Tylenol Tablet PO 650 mg Q6H PRN Administration Mild Pain (1-3) or Fever Aspirin 324 mg 07/13/19 0
--- NOTE | 2019-07-14 15:05 | PM.IMPN ---
Progress Note: A&P Assessment and Plan (1) Acute encephalopathy: Code(s): G93.40 - Encephalopathy, unspecified Status: Acute Assessment and Plan: TIA MRI negative -. Continue ASA thearpy, Neurochecks, Stroke protocol. Continue statin therapy.. TSH normal, Echocardiogram pending.. B12 normal. . Neurology has been consulted by ER provider. (2) Bigeminy: Code(s): I49.9 - Cardiac arrhythmia, unspecified Status: Acute Assessment and Plan: , Continue telemetry. Cardiology has been consulted , beta tamir started, mg and K normal. Stress in am. does also have hx of stent to some 2-3 years ago found on preop eval after + stress test. (3) GERD (gastroesophageal reflux disease): Qualifiers: Esophagitis presence: esophagitis presence not specified Qualified Code(s): K21.9 - Gastro-esophageal reflux disease without esophagitis Code(s): K21.9 - Gastro-esophageal reflux disease without esophagitis Status: Acute Assessment and Plan: ppi (4) Type 2 diabetes mellitus: Qualifiers: Diabetes mellitus lobsterman insulin use: without lobsterman use Diabetes mellitus complication status: without complication Qualified Code(s): E11.9 - Type 2 diabetes mellitus without complications Code(s): E11.9 - Type 2 diabetes mellitus without complications Status: Acute Assessment and Plan: accuchecks, SSI Coverage, continue metformin. hypoglycemic protocol. (5) Numbness and tingling of left upper extremity: Code(s): R20.0 - Anesthesia of skin; R20.2 - Paresthesia of skin Status: Chronic Assessment and Plan: likely secondary to peripheral neuropathy as the patient has had ongoing intermittent LUE paresthesias for years. (6) Hyperlipidemia: Qualifiers: Hyperlipidemia type: unspecified Qualified Code(s): E78.5 - Hyperlipidemia, unspecified Code(s): E78.5 - Hyperlipidemia, unspecified Status: Chronic Assessment and Plan: Continue statin therapy. Subjective Date/time seen: 07/14/19 15:05 Interval history: Date of visit 07/13. 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 Presented to the emergency room past 6 hours of the initial episode and symptoms had started to resolve. He was noted to have bigeminy which he did not notice and admitted for evaluation treatment of the same. Patient gives history of lobsterman of an irregular heartbeat and having had cardiac catheterization in the past with stent . He was asymptomatic and had a preop stress test which precipitated catheterization and eventual stent Also relates that he has episodes what he describes as vertigo with room spinning although did not experience that on admission Exam Narrative: Exam Narrative: Blood pressure 130/56 pulse is rated at 72 and less ectopy by exam and rhythm strip Pupils equal reactive to light sclera anicteric Mouth normal Neck no no carotid bruit Lungs clear CV no murmurs and more regular Abdomen is soft nontender Extremities without edema distal pulses are 2+ Neuro he is alert oriented with no focal deficits Objective Data Vital Signs Vital Signs: Vital Signs - 24 hr 07/13/19 16:00 07/13/19 18:00 07/13/19 19:47 Temperature 36.4 C 36.3 C L Pulse Rate 56 L 58 L 77 Respiratory Rate 16 16 Blood Pressure 104/42 L 111/42 L Pulse Oximetry 96 99 07/13/19 20:00 07/13/19 20:58 07/13/19 22:00 Temperature Pulse Rate 57 L 66 48 L Respiratory Rate Blood Pressure Pulse Oximetry 07/14/19 00:00 07/14/19 00:04 07/14/19 02:00 Temperature 36.1 C L Pulse Rate 40 L 40 L 45 L Respiratory Rate 18 Blood Pressure 100/41 L Pulse Oximetry 98 07/14/19 04:00 07/14/19 06:00 07/14/19 08:00 Temperature 36.1 C L 36.4 C L Pulse Rate 43 L 48 L 57 L Respiratory Rate 16 16 Blood Pressure 130/64 123/56 L Pulse
[2019-07-14] MEDS: METOPROLOL TARTRATE 25 MG TABLET PO (20:51)
[2019-07-14] MEDS: GABAPENTIN 300 MG CAPSULE PO (20:51)
[2019-07-14] MEDS: ENOXAPARIN 40 MG/0.4 ML SYRINGE SUB-Q (20:52)
[2019-07-15] VITALS (9 sets, daily range): BP systolic 134–155; BP diastolic 54–66; PULSE 44–68; RESP 16–20; TEMP 36.1–36.4; O2SAT 97–98
--- NOTE | 2019-07-15 06:00 | ECHO_ITS ---
Patient Info Name: Jose Tolentino Age: 78 years : 1940 Gender: Male Ht: 65 in Wt: 163 lbs BSA: 1.86 m2 HR: 44 bpm BP: 149 / 55 mmHg Technical Quality: Good Exam Date: 07/15/2019 2:08 PM Exam Location: [facility] Patient Status: Inpatient Admit Date: 07/13/2019 Staff Ordering Physician: Delio Diaz DO Nursing Clinical Director: Dee Leach RDCS Attending Provider: Paul Ann MD Referring Physician: Emily WILIKNS; Exam Type: CA echo doppler color flow Study Info Indications R00.1 - Bradycardia, unspecified Complete two-dimensional, color flow and Doppler transthoracic echocardiogram is performed. Summary 1. Left ventricular chamber dimension is normal. 2. Left ventricular systolic function is normal, estimated at 60-65%. 3. There is mildly increased left ventricular wall thickness. 4. The left ventricular diastolic function is grade IV diastolic dysfunction. 5. E/e' 14 is mildly elevated. 6. Left atrial chamber dimension is mildly enlarged. 7. There is moderate mitral valve regurgitation. 8. There is mild tricuspid valve regurgitation. 9. Mild pulmonary hypertension, estimated pulmonary arterial systolic pressure is 43 mmHg. Left Ventricle E/e' 14 is mildly elevated. Left ventricular chamber dimension is normal. Left ventricular systolic function is normal, estimated at 60-65%. There is mildly increased left ventricular wall thickness. The left ventricular diastolic function is grade IV diastolic dysfunction. Right Ventricle Right ventricular chamber dimension is normal. Right ventricular systolic function is normal. Left Atria Left atrial chamber dimension is mildly enlarged. Right Atria Right atrial chamber dimension is normal. Aortic Valve The aortic valve is trileaflet. There is no aortic valve stenosis. There is no aortic valve regurgitation. Pulmonic Valve There is no pulmonic regurgitation. Mitral Valve There is no mitral valve stenosis. There is moderate mitral valve regurgitation. Tricuspid Valve There is mild tricuspid valve regurgitation. Mild pulmonary hypertension, estimated pulmonary arterial systolic pressure is 43 mmHg. Pericardium/Pleural There is no pericardial effusion. Inferior Vena Cava Normal inferior vena cava with >50% collapse upon inspiration consistent with normal right atrial pressure, 5 mmHg. Aorta The aortic root size at the sinus of Valsalva is normal. Left Ventricular Outflow Tract Name Value Normal LVOT 2D LVOT Diameter 2.0 cm LVOT Doppler LVOT Peak Velocity 91 cm/s LVOT Peak Gradient 3 mmHg LVOT Mean Gradient 2 mmHg LVOT VTI 25 cm LVOT VTI/AV VTI Ratio 0.8 LVOT Stroke Volume 78 ml LVOT CO 4.0 l/min LVOT CI 2.2 l/min/m2 Pulmonic Valve Name Value Normal
--- NOTE | 2019-07-15 08:00 | EST_ITS ---
Patient Info Name: Jose Tolentino Age: 78 years : 1940 Gender: Male Ht: 65 in Wt: 162 lbs BSA: 1.85 m2 Exam Date: 07/15/2019 9:28 AM Exam Location: [facility] Patient Status: Inpatient Admit Date: 07/13/2019 Staff Ordering Physician: Haresh Carrion DO Attending Provider: Paul Ann MD Exercise Technologist: Dee Leach RDCS Exercise Physician: Haresh Carrion DO Exam Type: CA stress rosalio w NM Study Info Indications - NVST A regadenoson stress test was performed. Summary 1. 1. Negative lexiscan stress test for ischemic ST changes by ECG criteria. 2. 2. Baseline hypertension. 3. 3. Nuclear scan to follow and will be reported separately. Please correlate with it. 4. 4. Patient informed of the above results. Protocol: Lexiscan Stress ECG Details Stage: REST Duration (min): 1 min : 38 sec HR (bpm): 45 SBP (mmHg): 169 DBP (mmHg): 90 Stage: REST Duration (min): 6 min : 22 sec HR (bpm): 46 SBP (mmHg): 169 DBP (mmHg): 90 Stage: STAGE 1 Duration (min): 1 min : 0 sec HR (bpm): --- SBP (mmHg): 169 DBP (mmHg): 90 Stage: RECOVERY Duration (min): 1 min : 0 sec HR (bpm): 76 SBP (mmHg): 169 DBP (mmHg): 90 Stage: RECOVERY Duration (min): 2 min : 0 sec HR (bpm): 77 SBP (mmHg): 148 DBP (mmHg): 74 Stage: RECOVERY Duration (min): 3 min : 0 sec HR (bpm): 73 SBP (mmHg): 153 DBP (mmHg): 80 Stage: RECOVERY Duration (min): 3 min : 29 sec HR (bpm): 74 SBP (mmHg): 153 DBP (mmHg): 80 Rest HR: 46 bpm Peak HR: 78 bpm Rest Sys BP: 169 mmHg Peak Sys BP: 153 mmHg Max Pred HR: 142 bpm % Max Pred HR: 55 % Target HR: 121 bpm Max RPP: 11,934 bpm*mmHg Termination Reason: Completed protocol Total Time: 1 min : 0 sec Rest Carey BP: 90 mmHg Peak Carey BP: 80 mmHg Total Dose: 0.4 mg Resting ECG Sinus rhythm. Stress ECG Sinus rhythm with ventricular bigeminy. Arrhythmias None. Report Signatures
[2019-07-15] MEDS: METOPROLOL TARTRATE 25 MG TABLET PO (08:33)
[2019-07-15] MEDS: PANTOPRAZOLE 40 MG TABLET PO (08:33)
[2019-07-15] MEDS: ATORVASTATIN 40 MG TABLET PO (08:33)
[2019-07-15] MEDS: lisinopriL 5 MG TABLET PO (08:34)
[2019-07-15] MEDS: ASPIRIN 81 MG CHEWABLE TABLET 324 MG PO (08:36)
--- NOTE | 2019-07-15 09:56 | PM.PNCARD ---
Progress Note: A&P Assessment and Plan (1) CAD (coronary artery disease): Code(s): I25.10 - Atherosclerotic heart disease of [place] coronary artery without angina pectoris Status: Acute Assessment and Plan: Start Lisinopril. (2) NSVT (nonsustained ventricular tachycardia): Code(s): I47.2 - Ventricular tachycardia Status: Acute Assessment and Plan: Decreased number of ventricular ectopies and no more runs of NSVT. Await echo and lexiscan myoview stress test today. If unremarkable, and no longer having NSVT, may be d/c home. (3) Hyperlipidemia: Qualifiers: Hyperlipidemia type: unspecified Qualified Code(s): E78.5 - Hyperlipidemia, unspecified Code(s): E78.5 - Hyperlipidemia, unspecified Status: Chronic Subjective Date/time seen: 07/15/19 09:56 Denies chest pain or sob. Exam Const: General: comfortable and no acute distress Neck: Neck: no JVD Cardio: Rate: bradycardic Rhythm: regular rhythm Heart sounds: no murmurs GI: Inspection: non-distended Neuro: Speech: normal speech Extrem: Right lower extremity: no edema Left lower extremity: no edema Objective Data Vital Signs Vital Signs: Vital Signs - 24 hr 07/14/19 10:00 07/14/19 12:00 07/14/19 14:00 Temperature 97.4 F L Pulse Rate 54 L 73 62 Respiratory Rate 18 Blood Pressure 129/56 L Pulse Oximetry 98 07/14/19 16:00 07/14/19 18:00 07/14/19 19:12 Temperature 97.4 F L 97.8 F Pulse Rate 71 54 L 68 Respiratory Rate 18 18 Blood Pressure 134/52 L 151/56 H Pulse Oximetry 98 99 07/14/19 20:00 07/14/19 20:51 07/14/19 22:00 Temperature Pulse Rate 52 L 60 52 L Respiratory Rate Blood Pressure Pulse Oximetry 07/14/19 23:27 07/15/19 00:00 07/15/19 02:00 Temperature 98.2 F Pulse Rate 47 L 51 L 53 L Respiratory Rate 18 Blood Pressure 130/56 L Pulse Oximetry 97 07/15/19 04:00 07/15/19 06:00 07/15/19 08:00 Temperature 97.6 F 96.9 F L Pulse Rate 47 L 46 L 48 L Respiratory Rate 16 20 Blood Pressure 134/59 L 155/66 H Pulse Oximetry 97 98 07/15/19 08:33 Temperature Pulse Rate 54 L Respiratory Rate Blood Pressure Pulse Oximetry Intake/Output Intake/Output: Intake & Output 07/12/19 07/13/19 07/14/19 07/15/19 23:59 23:59 23:59 23:59 Intake Total 1000 960 720 Output Total 2575 700 1500 Balance 1000 -1615 20 -1500 Meds/Results Medications: Active Medications Generic Name Dose Route Start Last Admin Trade Name Freq PRN Reason Stop Dose Admin Acetaminophen 650 mg 07/13/19 09:52 07/13/19 11:19 Tylenol Tablet PO 650 mg Q6H PRN Administration Mild Pain (1-3) or Fever Aspirin 324 mg 07/13/19 08:00 07/15/19 08:36 Aspirin Chewable PO 324 mg DAILY@0800 DONNA Administration Atorvastatin Calcium 40 mg 07/13/19 09:00 07/15/19 08:33 Lipitor PO 40 mg DAILY DONNA Administration Enoxaparin Sodium 40 mg 07/13/19 21:00 07/14/19 20:52 Lovenox SUB-Q 40 mg HS DONNA Administration Gabapentin 300 mg 07/13/19 21:00 07/14/19 20:51 Neurontin PO 300 mg HS DONNA Administration Lisinopril 5 mg 07/15/19 09:00 07/15/19 08:34 Prinivil PO 5 mg QAM DONNA Administration Metformin HCl 1,000 mg 07/13/19 08:00 07/14/19 17:35 Glucophage PO 1,000 mg BIDWM DONNA Administration Metoprolol Tartrate 25 mg 07/13/19 09:25 07/15/19 08:33 Lopressor PO 25 mg Q12HR DONNA Administration Pantoprazole Sodium 40 mg 07/13/19 09:00 07/15/19 08:33 Protonix PO 40 mg QAM DONNA Administration Radiology Results: ITS Impressions Head CT 07/12/19 19:31 IMPRESSION: 1. No acute intracranial process. 2. Age-related changes including mild to moderate diffuse volume loss and mild scattered white matter hypoattenuation consistent with chronic small vessel ischemic disease. Chest X-Ray 07/12/19 19:34 IMPRESSION: 1. Mild bibasilar opacities which could represent atele
--- NOTE | 2019-07-15 14:48 | PCOTNOTE ---
Attempted to see patient for skilled OT, however, patient stated will be discharging him likely today and declined therapy. Patient and therapist discussed need for OT services, and patient verbalized able to complete self-care tasks at [facility]. Patient agreed to discharge from OT at this time.
--- NOTE | 2019-07-16 09:25 | PM.DS ---
DS: Diagnosis Admitting Diagnosis Admitting Diagnosis: Hyperlipidemia, unspecified will high Discharge Diagnosis (1) Acute encephalopathy: Code(s): G93.40 - Encephalopathy, unspecified Status: Acute Assessment and Plan: TIA MRI negative -. Continue ASA thearpy, Continue statin therapy.. TSH normal, Echocardiogram EF normal with no structural abnormalities.. B12 normal. . 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 Neurology suggested continued asa with stain and control of bp (2) Bigeminy: Code(s): I49.9 - Cardiac arrhythmia, unspecified Status: Acute Assessment and Plan: , . Cardiology evaluated , beta tamir started, 25 mg bid which was decreaded to 12.5 bid at d/c due to relative bradycardis and K normal. No reversible ischemia, fixed inf defect. but no wall motion abnormalities on echo with normal EF 50-55% does also have hx of stent to some 2-3 years ago found on preop eval after + stress test. (3) GERD (gastroesophageal reflux disease): Qualifiers: Esophagitis presence: esophagitis presence not specified Qualified Code(s): K21.9 - Gastro-esophageal reflux disease without esophagitis Code(s): K21.9 - Gastro-esophageal reflux disease without esophagitis Status: Acute Assessment and Plan: ppi (4) Type 2 diabetes mellitus: Qualifiers: Diabetes mellitus complication status: without complication Diabetes mellitus moth exterminator insulin use: without assisted use Qualified Code(s): E11.9 - Type 2 diabetes mellitus without complications Code(s): E11.9 - Type 2 diabetes mellitus without complications Status: Acute Assessment and Plan: , continue metformin. BS well controlled here. (5) Numbness and tingling of left upper extremity: Code(s): R20.0 - Anesthesia of skin; R20.2 - Paresthesia of skin Status: Chronic Assessment and Plan: likely secondary to peripheral neuropathy as the patient has had ongoing intermittent LUE paresthesias for years. (6) Hyperlipidemia: Qualifiers: Hyperlipidemia type: unspecified Qualified Code(s): E78.5 - Hyperlipidemia, unspecified Code(s): E78.5 - Hyperlipidemia, unspecified Status: Chronic Assessment and Plan: Continue statin therapy. (7) HTN (hypertension): Code(s): I10 - Essential (primary) hypertension Status: Acute Assessment and Plan: bp fair control with the lisinopril 10 qd and metoprolol DS: Summary Hospital Course Hospital Course: 78-year-old white male history of CAD and hyperlipidemia admitted with stroke-like symptoms of loss of balance confusion slight difficulty with speech. CT and MRI revealed no acute changes. 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 Neurology felt aspirin statin and blood pressure controlled with the best treatment. his symptoms all resolved. He also had frequent ectopy with ventricular bigeminy and short nonsustained V-tach. Nuclear stress test showed no reversible ischemia an echocardiogram showed normal ejection fraction of 50-55% with no wall motion abnormalities or structural abnormalities. Beta-tamir was added to his regime by Cardiology. Initially 25 b.i.d. of metoprolol which was decreased to 12.5 b.i.d. on discharge due to relative bradycardia. He will follow-up with his lobby attendant and discharged to [facility] about feeling well with no specific complaints. Time Spent with Patient Time attestation: Total time spent providing and/or coordinating discharge services: 35 minutes Exam Narrative: Exam Narrative: condition on discharge blood pressure 138 over 72 with pulse of 50( metoprolol decreased to 12.5 b.i.d. at discharge) lungs clear CV regular rate rhythm with occasional ectopic extremities without edema neuro alert cooperative no focal deficits at discharge he was up
== END 2019-07-15 18:00 | disposition home or self-care (01) ==
LOC: ANHED 07-13 00:24 → ANHIMU 07-13 01:31
PROVIDERS: Admitting Provider Family Medicine; Emergency Provider Emergency Medicine; PCP Internal Medicine; Visit Provider Internal Medicine
DX: G93.40 Encephalopathy, unspecified (principal); I49.9 Cardiac arrhythmia, unspecified; R20.0 Anesthesia of skin; R20.2 Paresthesia of skin; K21.9 Gastro-esophageal reflux disease without esophagitis; E11.9 Type 2 diabetes mellitus without complications; E78.5 Hyperlipidemia, unspecified; I65.01 Occlusion and stenosis of right vertebral artery; I25.10 Atherosclerotic heart disease of native coronary artery without angina pectoris; Z79.82 Long term (current) use of aspirin; Z79.84 Long term (current) use of oral hypoglycemic drugs; Z79.899 Other long term (current) drug therapy; Z95.5 Presence of coronary angioplasty implant and graft; Z98.1 Arthrodesis status
CPT/HCPCS: 36415; 70450; 70496; 70498; 70553; 71045; 78452; 80048; 80053; 80061; 81001; 82607; 82746; 83735; 84443; 84484; 85025; 85610; 85730; 93005; 93017; 93306; 93880; 96361; 96372; 96374; 96375; 97116; 97161; 97165; 99285; A9270; A9502; A9577; G0378; J1650; J2405; J2785; J3475; J7120; Q9967

== ENCOUNTER 2020-11-27 07:52 | Outpatient (CLI) | payer MEDICARE, SELFPAY | END 2020-11-27 07:53 | disposition home or self-care (01) | PROVIDERS: PCP Internal Medicine; Visit Provider Otolaryngology | DX: H91.93 Unspecified hearing loss, bilateral (principal) | CPT/HCPCS: 92557; 92567; V5261 ==

== ENCOUNTER 2020-12-10 14:25 | Outpatient (RCR) | payer MEDICARE, SELFPAY | END 2020-12-30 09:16 | disposition home or self-care (01) | LOC: ANHBWCAUD 14:25 | PROVIDERS: PCP Internal Medicine; Visit Provider Otolaryngology | DX: Z46.1 Encounter for fitting and adjustment of hearing aid (principal) | CPT/HCPCS: 99199; V5160; V5261 ==

== ENCOUNTER 2021-01-07 16:20 | Outpatient (CLI) | payer MEDICARE, SELFPAY ==
--- NOTE | ~2021-01-07 | XR_ITS ---
XR foot RT min 3V DATE: 01/07/2021 16:52 INDICATION: Plantar foot pain for 2.5 mm TECHNIQUE: 4 views COMPARISON: None FINDINGS: There are 2 pins extending through the medial malleolus. There is slight plantar calcaneal enthesopathy. 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 Dorsalis pedis and posterior tibial artery and metatarsal artery calcifications, suggesting diabetes. IMPRESSION: Postoperative change of medial malleolus Osteoarthritis at first metatarsophalangeal joint Slight plantar calcaneal enthesopathy Metatarsal artery calcifications, suggesting diabetes Reviewed, dictated and finalized at location A.
--- NOTE | ~2021-01-07 | XR_ITS ---
XR foot LT min 3V DATE: 01/07/2021 16:52 INDICATION: Pain for 2.5 years TECHNIQUE: 4 views COMPARISON: None FINDINGS: There is extensive calcification of the anterior and posterior tibial arteries as well as m etatarsal artery calcification, suggesting diabetes. No fracture or dislocation, periosteal reaction or bone destruction. Plantar calcaneal enthesopathy. IMPRESSION: Plantar calcaneal enthesopathy Prominent arterial calcifications suggestive of diabetes Reviewed, dictated and finalized at location A.
== END 2021-01-07 16:21 | disposition home or self-care (01) ==
LOC: ANHIMG 16:26
PROVIDERS: PCP Internal Medicine
DX: M77.32 Calcaneal spur, left foot (principal); M19.071 Primary osteoarthritis, right ankle and foot; M77.31 Calcaneal spur, right foot
CPT/HCPCS: 73630

== ENCOUNTER 2023-11-06 13:38 | Outpatient (CLI) | payer MEDICARE, SELFPAY ==
--- NOTE | ~2023-11-06 | PE_ITS ---
EXAMINATION: PET_PETPSMAST_PT DATE: 11/06/2023 16:22 INDICATION: Malignant neoplasm of prostate. TECHNIQUE: 4.575 mCi of Ga-68 gozetotide was administered intravenously. Low dose computed tomography (CT) images were acquired from the base of the brain to the proximal thighs for attenuation correcti on and anatomic localization. Automated exposure control was employed. Dose-length product (DLP) was 954 mGy-cm. Positron emission tomography (PET) images were acquired in the same distribution. COMPARISON: None FINDINGS: Head/neck: There are no pathologically enlarged lymph nodes. There is asymmetric severe fatty atrophy of the left parotid gland. There is severe cervical spondylosis. Chest: There is mild atelectasis in the lungs. No pleural effusion. The heart size is normal. There a re coronary artery calcifications. No pericardial effusion. There is a left chest wall pacer with jasbir ds in the right atrium and right ventricle. There is a 2.0 cm subcutaneous cyst in the posterior thor ax, likely a sebaceous cyst. There is severe thoracic spondylosis. Abdomen/pelvis/proximal thighs: The liver, gallbladder, spleen, pancreas, adrenal glands, and kidneys are normal. There is no urolithiasis. The prostate is mildly enlarged. The maximum SUV in the prosta te is 2.9. There is a right inguinal hernia containing fat. There are no pathologically enlarged lymp h nodes. There is severe lumbar spondylosis. IMPRESSION: 1. Mildly enlarged prostate. No evidence of metastatic disease. Reviewed, dictated and finalized at location A.
[2023-11-06 17:22] LABS: Prostate Specific Antigen 7.5 ng/mL (< OR = 4.0)
== END 2023-11-06 13:39 | disposition home or self-care (01) ==
PROVIDERS: PCP Internal Medicine; Visit Provider Radiology Radiation Oncology
DX: C61 Malignant neoplasm of prostate (principal)
CPT/HCPCS: 36415; 78815; 84153; A9596

== ENCOUNTER 2024-06-10 16:30 | Observation (INO) | payer MEDICARE, SELFPAY ==
[2024-06-10] VITALS (15 sets, daily range): BP systolic 143–159; BP diastolic 76–96; PULSE 82–102; RESP 13–20; TEMP 36.4; O2SAT 93–99
--- NOTE | ~2024-06-10 | XR_ITS ---
EXAMINATION: XR chest 1V portable Exam Date/Time: 06/12/2024 15:25 ASPHALT DAUBER HISTORY: chf? Comparison: 06/10/2024. RESULT: Lines, tubes, and devices: Left chest pacer with intact leads. Lungs and pleura: Subsegmental left medial basilar airspace disease. Mild diffuse reticular opacitie s. Cardiomediastinal silhouette: Stable. Other: No acute osseous or upper abdominal finding. IMPRESSION: New subsegmental left medial basilar atelectasis/consolidation. Mild interstitial edema, similar to s lightly improved. Interval resolution of the small bilateral pleural effusions. Reviewed, dictated and finalized at location K. ALT DAUBER IMPRESSION: New subsegmental left medial basilar atelectasis/consolidation. Mild interstiti al edema, similar to slightly improved. Interval resolution of the small bilate ral pleural effusions.
--- NOTE | ~2024-06-10 | CT_ITS ---
EXAMINATION: CTA abdomen pelvis DATE: 06/10/2024 19:06 INDICATION: Epigastric abdominal pain. TECHNIQUE: Computed tomographic angiography (CTA) of the abdomen and pelvis was performed with 100 mL Omnipaque-350 intravenous contrast. Automated exposure control and iterative reconstruction techniqu e were employed. The dose-length product was 681.73 mGy-cm. Maximum intensity projection 3D-reconstru ctions of the aorta and other arteries were constructed by the technologist on a separate workstation . COMPARISON: CT abdomen and pelvis 06/14/2013, PET/CT 11/06/23 FINDINGS: The visualized portions of the lung bases demonstrate mild atelectasis. There are moderate- sized pleural effusions. Cardiomegaly is noted. No pericardial effusion. There are coronary artery ca lcifications. There are pacer wires in right atrium and right ventricle. The liver and gallbladder ar e normal. There is a chronic subcapsular hematoma of the spleen with maximum thickness of 6 mm, stabl e from 11/06/23. The pancreas and adrenal glands are normal. There is cortical thinning of the kidneys . There is diverticulosis of the colon without evidence of diverticulitis. There are no dilated loops of bowel. The appendix is not visualized. There are no pathologically enlarged lymph nodes. There is no free intraperitoneal fluid. There is a right inguinal hernia containing fat. There is calcified a therosclerosis of the aorta and many of the other arteries. There is no significant stenosis of bianca c axis, superior mesenteric artery, or the renal arteries. There is moderate stenosis of the origin o f inferior mesenteric artery. There is diffuse bladder wall thickening, likely secondary to chronic o utlet obstruction from the mildly enlarged prostate. There are brachytherapy seeds in the prostate. T here is severe thoracic spondylosis and moderate lumbar spondylosis. IMPRESSION: 1. Moderate-sized bilateral pleural effusions. 2. Right inguinal hernia containing fat. Reviewed, dictated and finalized at location A. ICAL PROGRAM COORDINATOR
--- NOTE | ~2024-06-10 | XR_ITS ---
EXAMINATION: XR chest 1V portable DATE: 06/10/2024 17:21 INDICATION: Shortness of breath. TECHNIQUE: A single frontal view of the chest was obtained. COMPARISON: Chest single view 07/12/2019, PET/CT 11/06/2023 FINDINGS: There are small pleural effusions. There is mild atelectasis at the lung bases. Cardiomegal y is noted. There is a left chest wall pacer with leads in the right atrium and right ventricle. IMPRESSION: 1. Small pleural effusions. 2. Mild atelectasis at the lung bases. 3. Cardiomegaly Reviewed, dictated and finalized at location A. OYEE SERVICES MANAGER
--- NOTE | 2024-06-10 16:37 | ECG_ITS ---
Test Date: 2024-06-10 16:40:38 Measurements Intervals [place] Rate: 85 P: 241 FL: 195 QRS: -28 QRSD: 112 T: 57 QT: 357 QTc: 425 Interpretive Statements ELECTRONIC ATRIAL PACEMAKER BORDERLINE LEFT AXIS DEVIATION [QRS AXIS < -20] MODERATE INTRAVENTRICULAR CONDUCTION DELAY [110+ ms QRS DURATION] NONSPECIFIC T-WAVE ABNORMALITY ABNORMAL RHYTHM ECG No previous ECG available for comparison Electronically Signed On 06-10-2024 21:11:18 PSYCHOLOGY INTERN by Marlene Orozco M.D.
--- NOTE | 2024-06-10 16:47 | PC.NURSE ---
Provider at bedside
--- OUTSIDE RECORDS SUMMARY | 2024-06-10 16:57 | XMS_ITS | Referral Summary ---
Author Organization [facility] Virtual Care Address [address] [place] [phone] Phone Care Team Providers Care Stem Dryer Maintainer Name Role Phone Sebastian Silverio MD Primary Care Provider [phone] Bridget Ramirez MD Unavailable [phone] Allergies No known active allergies Medications metFORMIN (GLUCOPHAGE) 500 mg tablet Take 2 tablets (1,000 mg total) by mouth daily with breakfast Active tamsulosin (FLOMAX) 0.4 mg extended release capsule Take 1 capsule (0.4 mg total) by mouth nightly 2 Active traZODone (DESYREL) 50 mg tablet Take 1 tablet (50 mg total) by mouth nightly as needed 1 Active magnesium oxide 200 mg magnesium tablet Take 200 mg by mouth 2 (two) times a day 0 Active apixaban (ELIQUIS) 5 mg tablet Take 1 tablet (5 mg total) by mouth every 12 (twelve) hours Active atorvastatin (LIPITOR) 40 mg tablet Take 1 tablet (40 mg total) by mouth nightly Active dapagliflozin (FARXIGA) 5 mg tablet Take 1 tablet (5 mg total) by mouth daily Active famotidine (PEPCID) 20 mg tabletIndications :Prevention of Stress Ulcer Take 1 tablet (20 mg total) by mouth 2 (two) times a day 60 tablet [address] (CYMBALTA) 60 mg capsule Take 1 capsule (60 mg total) by mouth nightly Active dilTIAZem SR (CARDIZEM SR) 90 mg 12 hr capsule Take 1 capsule (90 mg total) by mouth 2 (two) times a day Active furosemide (LASIX) 20 mg tablet Take 1 tablet (20 mg total) by mouth daily 30 tablet 2 3 Active amiodarone (PACERONE) 200 mg tabletIndications :Prevention of Recurrent Atrial Fibrillation Take 1 tablet (200 mg total) by mouth 2 (two) times a day 60 tablet 3 Active bacitracin 500 unit/gram ointment Apply topically 2 (two) times a day 120 g 3 Active Active Problems Problem Noted Date Diagnosed Date Syncope, unspecified syncope type 04/17/2023 S/P ablation of atrial flutter 04/13/2023 Atrial fibrillation and flutter 02/08/2022 PVC (premature ventricular contraction) 01/21/20 Overview (01/20/2022): Added automatically from request for surgery [id number] Unstable angina pectoris (CMS/HCC) 06/09/2021 Gastroesophageal reflux disease 05/10/2021 Peripheral vascular disease 01/15/2021 History of coronary artery stent placement 07/09 Diabetes 07/09/2018 Dyslipidemia 07/09/2018 Abnormal LFTs 07/09/2018 Assessment & Plan (07/09/2018 9:31 AM MACHINE OPERATOR PICKER): Patient with reported abnormal LFTs which we do not have. The mildly elevated liver fraction of the alkaline phosphatase is in the settings of normal alkaline phosphatase and gamma glutamyl transferase levels which limit the value of it. 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 - Will check CMP, CBC, HCV antibodies and HB surface antigen. - Will proceed with further work-up depending on the lab tests findings. Hyperlipidemia 04/28/2017 Spinal stenosis of lumbar region 02/27/2017 Herniated lumbar intervertebral disc 02/22/2017 Hypertension 03/13/2016 Immunizations Name Administration Dates Next Due Influenza Nasal, Unspecified 01/02/2015 Influenza, Quadrivalent, Hig h Dose, Preservative Free, Intrr 02/04/2021,01/07/2020 Influenza, Trivalent, High D ose, Split, Preservative Free, Intramuscular 02/20/2019,02/03/2018,12/25/2016,02/10 Influenza, Trivalent, IM (MDV) 03/22/2013 Influenza, Unspecified 02/05/2018,01/13/2017,05/2013 Pneumococcal Conjugate PCV 13 03/15/2014 Pneumococcal Polysaccharide PPV23 03/24/2015 Tdap 03/21/2020 Social History Tobacco Use Types Packs/Day Years Used Date Smoking Tobacco: Never Smokeless Tobacco: Never Tobacco Cessation:Counseling Given: Not Answered Alcohol Use Standard Drinks/Week Comments No 0 (1 standard drink = 0.6 oz pure alcohol) 5-6 beers once every couple months [facility] [employer] Answer Date Recorded In the past 12 months has [employer], [employer], oil, or water [employer] threatened to shut off services in your home? No 04/18/2023 Social Connection and Isolat ion Panel [NHANES] Answer Date Recorded In a typical week, how many times do you talk on the phone with family, friends, or neighbors? More than three times a week 04/18/2023 How often do you get togethe r with friends or relatives? Three times a week 04/18/2023 How often do you attend [facility] or christianity services? More than 4 times per year 04/18/2023 Do you belong to any clubs o r organizations such as advent groups, unions, fraternal or athletic groups, or school groups? Yes 04/18/2023 How often do you attend meet ings of the clubs or organizations you belong to? More than 4 times per year 04/18/2023 Are you , , di vorced, , never , or living with a partner? 04/18/2023 AUDIT-C Answer Date Recorded Q1: How often do you have a drink containing alc ohol? Monthly or less 04/18/2023 Q2: How many drinks containi ng alcohol do you have on a typical day when you are drinking? 3 or 4 04/18/2023 Q3: How often do you have si x or more drinks on one occasion? Never 04/18/2023 Overall Financial Resource Strain (CARDIA) Answe r Date Recorded How hard is it for you to pa y for the very basics like food, housing, medical care, and heating? Not hard at all 04/18/2023 Hunger Vital Sign Answer Date Recorded Within the past 12 months, y ou worried that your food would run out before you got the money to buy more. Never true 04/18/20 23 Within the past 12 months, t he food you bought just didn't last and you didn't have money to get more. Never true 04/18/2023 PRAPARE - Transportation Answer Date Re corded In the past 12 months, has l ack of transportation kept you from medical appointments or from getting medications? No 09/2022 In the past 12 months, has l ack of transportation kept you from meetings, work, or from getting things needed for daily living? No 04/18/2023 Housing Stability Vital Sign Answer Pietro e Recorded In the last 12 months, was t here a time when you were not able to pay the mortgage or rent on time? No 04/18/2023 In the last 12 months, how many places have you lived? 1 04/18/2023 In the last 12 months, was t here a time when you did not have a steady place to sleep or slept in a senior care (including now)? No 04/18/2023 Personal Safety Answer Date Recorded Have you ever been in or are you currently in a harmful physical or emotional relationship or is someone making you feel afraid or unsafe? Denies 05/23/2023 Sex and Gender Information Value Date Recorded Sex Assigned at Not on file Legal Sex Male 3:46 PM MACHINE OPERATOR PICKER Gender Identity Not on file Sexual Orientation Not on file Last Filed Vital Signs Vital Sign Reading Time Taken Comments Blood Pressure 167/91 05/23/2023 5:25 PM MACHINE OPERATOR PICKER Pulse 80 05/23/2023 6:05 PM MACHINE OPERATOR PICKER Temperature 36 ??C (96.8 ??F) 05/23/2023 11:15 AM MACHINE OPERATOR PICKER Respiratory Rate 18 05/23/2023 6:05 PM MACHINE OPERATOR PICKER Oxygen Saturation 98% 05/23/2023 6:05 PM MACHINE OPERATOR PICKER Inhaled Oxygen Concentration - - Weight 72.6 kg (160 lb) 12/21/2023 8:54 AM CDT Height 167.6 cm (5' 6 ) 12/21/2023 8:54 AM CDT Body Mass Index 25.82 12/21/2023 8:54 AM CDT Plan of Treatment Not on file Medical Devices Implanted Type Area Lpn Home Health Device Identifier Shelf Expiration Date Model / Serial / Lot DaiGuidance Software Cece/St Huy Medical [id number] Angio-Seal Evolution 8fr .038in Guidewire Bypass Tube Suture - [id number] - [id number] Implanted:Qty: 1 on 06/17/2021 by Bennett Moya MD at [facility] Collagen Terumo Medical Cece 03/14/2022 [id number] / [id number] / [id number] Medtronic Usa [employer] X [id number] Resolute Wilmar 4mm 2.1-2.7fr 34mm 140cm Rapid Exchange Radiopaque - [id number] - [id number] Implanted:Qty: 1 on 06/17/2021 by Bennett Moya MD at [facility] Stent Medtronic Inc 02/10/2022 [id number] / [id number] / [id number] Biotroni[employer]al[employer] Biomonitor Iii Monitor Cardiac Sterile Disposable Latex Free [id number] - [id number] - [id number] Implanted:Qty: 1 on 04/19/2023 by Bridget Ramirez MD at [facility] Biotronik Inc [id number] 01/13/2024 [id number] / [id number] / Procedures Procedure Name Priority Date/Time Associated Diagnosis Comments EGFR STAT 05/23/2023 11:49 AM MACHINE OPERATOR PICKER HEMOGLOBIN A1C Routine 06/10/2021 4:34 AM MACHINE OPERATOR PICKER LIPID PANEL Routine 06/10/2021 4:34 AM MACHINE OPERATOR PICKER from Last 3 Months or Most Recently Relevant to Health Maintenance Results * eGFR (05/23/2023 11:49 AM MACHINE OPERATOR PICKER) [facility] eGFR 65 mL/min/1. 73 m2 [facility] Comment: Interpretive Data Reference Interval Normal ?>/= 90 mL/min/1.73m2 Mildly decreased* ? 60 - 89 mL/min/1.73m2 Mildly to moderately decreased ?45 - 59 mL/min/1.73m2 Moderately to severely decreased ??30 - 44 mL/min/1.73m2 Severely decreased ?15 - 29 mL/min/1.73m2 Kidney Failure ?< 15 ??mL/min/1.73m2 *Relative to young adult level Estimated glomerular filtration rate is determined by the 2020 CKD-EPI equation recommended by the National Kidney Foundation (A Unifying Approach to GFR Estimation: Recommendations of the NKF-ASK Task Force on Reassessing the Inclusion of Race in Diagnosing Kidney Disease, JASN 2020). The CKD-EPI equation should not be used for patients with unstable renal function and has not been validated in children and those over 70. Current interpretive data was last reviewed 2021. Blood 05/23/2023 11:4 9 AM MACHINE OPERATOR PICKER 05/23/2023 12:12 PM MACHINE OPERATOR PICKER us Isamar Kenney MD LAB BLOOD ORDERABLES nal Result [facility] [address] Department [place] [address] * (ABNORMAL) Hemoglobin A1c (06/10/2021 4:34 AM MACHINE OPERATOR PICKER) Hgb A1C 6.5(H) 4.0 - 5.6 % [facility] Estimated Average Glucose 140 mg/dL [facility] Comment: The ADA recommends reporting an estimated Average Glucose (eAG) with all Hemoglobin A1c results using the equation derived from a study of 507 normal and diabetic adults. ??Minority populations were underrepresented and children were not included. ?? (Diabetes Care 2020; 43(S1): S66-S76). ??The eAG is not equivalent to a fasting glucose. Blood 06/10/2021 4:34 AM MACHINE OPERATOR PICKER 06/10/2021 4:58 AM MACHINE OPERATOR PICKER us Boris Cunningham MD LAB BLOOD ORDERABLES Fi nal Result [facility] Department [place] [address] * Lipid panel (06/10/2021 4:34 AM MACHINE OPERATOR PICKER) Cholesterol 96 30 - 199 mg/dL [facility] [place] Comment: Interpretive Data Ages < or = 19 years ??Acceptable: ? <170 mg/dL ??Borderline high: ??170-199 mg/dL ??High: ? >or= 200 mg/dL Ages > or = 20 years ??Desirable: ?<200 mg/dL ??Borderline high: ??200-239 mg/dL ??High: ? >or= 240 mg/dL Literature References: 1. Expert Panel on Integrated Guidelines for Cardiovascular Health and Risk Reduction in Children and Adolescents. Pediatrics 2011;128:S213 2. NCEP Expert Panel. Circulation 2004;110:227 Current Interpretive Data was last revised on 2018. Triglycerides 64 <=149 mg/dL [facility] Comment: Interpretive Data Ages < or = 9 years ??Acceptable: ? <75 mg/dL ??Borderline high: ??75-99 mg/dL ??High: ? >or= 100 mg/dL Ages 10 to 20 years ??Acceptable: ? <90 mg/dL ??Borderline high: ??90-129 mg/dL ??High: ? >or= 130 mg/dL Ages > or = 20 years ??Desirable: ?<150 mg/dL ??Borderline high: ??150-199 mg/dL ??High: ? 200-499 mg/dL ?Very high: ?? >or= 499 mg/dL Literature References: 1. Expert Panel on Integrated Guidelines for Cardiovascular Health and Risk Reduction in Children and Adolescents. Pediatrics 2011;128:S213 2. NCEP Expert Panel. Circulation 2004;110:227 Current Interpretive Data was last revised on 2018. HDL 45 >=40 mg/dL [facility] Comment: Interpretive Data Ages < or = 19 years ??Acceptable: ? >45 mg/dL ??Borderline low: ?? 40-45 mg/dL ??Low: ? <40 mg/dL Ages > or = 20 years ??Desirable: ?>or= 60 mg/dL ??Low: ? <40 mg/dL Literature References: 1. Expert Panel on Integrated Guidelines for Cardiovascular Health and Risk Reduction in Children and Adolescents. Pediatrics 2011;128:S213 2. NCEP Expert Panel. Circulation 2004;110:227 Current Interpretive Data was last revised on 2018. LDL, calculated 38 <=129 mg/dL [facility] [place] Comment: Interpretive Data Ages < or = 19 years ??Acceptable: ? <110 mg/dL ??Borderline high: ??110-129 mg/dL ??High: ?>or= 130 mg/dL Ages > or = 20 years ??Optimal: ? <100 mg/dL ??Near optimal: ?100-129 mg/dL ??Borderline high: ?? 130-159 mg/dL ??High: ?>160 mg/dL Literature References: 1. Expert Panel on Integrated Guidelines for Cardiovascular Health and Risk Reduction in Children and Adolescents. Pediatrics 2011;128:S213 2. NCEP Expert Panel. Circulation 2004;110:227 Current Interpretive Data was last revised on 2018. Non-HDL Cholesterol 51 mg/dL [facility] Comment: Interpretive Data Ages < or = 19 years ??Acceptable: ?<120 mg/dL ??Borderline high: ??120-144 mg/dL ??High: ?>145 mg/dL Ages > or = 20 years ??When triglycerides are >200 mg/dL, Non-HDL cholesterol is a secondary target of ? therapy with treatment goals that are 30 mg/dL greater than the LDL cholesterol target. ? Literature References: 1. Expert Panel on Integrated Guidelines for Cardiovascular Health and Risk Reduction in Children and Adolescents. Pediatrics 2011;128:S213 2. NCEP Expert Panel. Circulation 2004;110:227 Current Interpretive Data was last revised on 2018. Chol/HDL ratio 2 [facility] Blood 06/10/2021 4:34 AM MACHINE OPERATOR PICKER 06/10/2021 4:59 AM MACHINE OPERATOR PICKER us Boris Cunningham MD LAB BLOOD ORDERABLES Fi nal Result Performing Organization Address City/State/[facility] de Phone Number [facility] Department [place] [address] from Last 3 Months or Most Recently Relevant to Health Maintenance Insurance [facility] MDCR HMO REF [facility] MEDICARE SOLUTIONS MEDICARE SOLUTIONS MEDICARE SOLUTIONS Advance Directives For more information, please contact: [phone] * Full Code (Latest Code Status on File) Date Activated Date Inactivated Comments 04/17/2023 9:53 PM 04/19/2023 10:00 PM * Full Code Date Activated Date Inactivated Comments 02/08/2022 11:30 AM 02/09/2022 5:46 PM * Full Code Date Activated Date Inactivated Comments 06/09/2021 4:14 PM 06/18/2021 6:23 PM Care Teams Stem Dryer Maintainer Relationship Specialty Start Date End Date Sebastian Silverio MD PCP - General 07/24/17 Bridget Ramirez MD [address] [place] [address] Consulting Physician Cardiology 02/09/22
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
--- OUTSIDE RECORDS SUMMARY | 2024-06-10 16:57 | XMS_ITS | Encounter Summary ---
Author Organization [facility] Address [address] [place] [address] Phone Care Team Providers Care Head Tennis Professional Name Role Phone Sebastian Silverio MD Primary Care Provider [phone] Becki Garcia MD Unavailable [phone] Emmett Sweeney MD Unavailable [phone] Reason for Visit * Reason Comments Medication Refill Encounter Details Date Type Department Care Team (Late st Contact Info) Description 04/30/2023 Refill [facility] - Neurology [facility] [address] [place] [id number] Emmett wSeeney MD [address] [place] [id number] Medication Refill Social History Tobacco Use Types Packs/Day Years Used Date Smoking Tobacco: Never Smokeless Tobacco: Never Alcohol Use Standard Drinks/Week Comments Yes 0 (1 standard drink = 0.6 oz pur e alcohol) occasional Sex and Gender Information Value Date Recorded Sex Assigned at Not on file Legal Sex Male 12:43 AM CDT Gender Identity Not on file Sexual Orientation Not on file documented as of this encounter Miscellaneous Notes * Telephone Encounter - Blanca Urbano RN - 05/01/2023 8:48 AM CST Medication failed the protocol, provider to review and approve the medication order if appropriate. Requested Prescriptions Pending Prescriptions Disp Refills DULoxetine (CYMBALTA) [address] Particles [Pharmacy Med Name: DULoxetine HCl 60 MG Oral Capsule Delayed Release Particles] 90 Capsule 0 Sig: Take 1 capsule by mouth once daily SNRI (6 Month Refill Only) Protocol Failed - 04/30/2023 8:23 PM Failed - Has an encounter in the past 6 months with a depression or anxiety visit diagnosis Failed - Patient has established therapy with Serotonin-Norepinephrine Reuptake Inhibitors for at least 6 months Passed - Visit with relevant provider in past 6 months or upcoming 90 days Recent Visits Date Type Provider Dept 02/08/23 Office Visit Emmett Sweeney MD [facility] Neurology [facility] Showing recent visits within past 182 days and meeting all other requirements Future Appointments No visits were found meeting these conditions. Showing future appointments within next 90 days and meeting all other requirements MAN documented in this encounter Plan of Treatment Not on file documented as of this encounter Visit Diagnoses Not on filedocumented in this encounter Care Teams Head Tennis Professional Relationship Specialty Start Date End Date Sebastian Silverio MD PCP - General Internal Medicine 06/02/21 Becki Garcia MD [address] [address] Consulting Physician Urology 12/20/22 Emmett Sweeney MD [address] [place] [address] Consulting Physician Neurology 03/04/22 documented as of this encounter
--- OUTSIDE RECORDS SUMMARY | 2024-06-10 16:57 | XMS_ITS | Clinical Summary ---
Author Organization [facility] Address [address] [place] [address] Phone Care Team Providers Care Wax Coating Machine Tender Name Role Phone Sebastian Silverio MD Primary Care Provider [phone] Becki Garcia MD Unavailable [phone] Emmett Sweeney MD Unavailable [phone] Allergies No known active allergies Medications aspirin EC 81 MG Tablet Delayed Response Take by mouth. 7 Active atorvastatin (LIPITOR) 40 MG Tablet ATORVASTATIN CALCIUM 40 MG ORAL TABLET 0 Active lisinopril (PRINIVIL, ZESTRIL) 10 MG Tablet Take by mouth. 0 Active metFORMIN (GLUCOPHAGE) 500 MG Tablet Take by mouth. 7 Active apixaban (ELIQUIS) 2.5 MG Tablet Take 2.5 mg by mouth 2 times daily. Active traZODone (DESYREL) 50 MG Tablet Take 50 mg by mouth nightly. Active Dapagliflozin Propanediol (Farxiga) 5 MG Tablet Farxiga 5 mg tablet 0 Active dilTIAZem (CARDIZEM) 90 MG Tablet Take 90 mg by mouth 2 times daily. 3 Active famotidine (PEPCID) 20 MG Tablet Take by mouth. 0 Active magnesium oxide (MAG-OX) 400 MG Tablet Take by mouth 2 times daily. 0 Active tamsulosin (FLOMAX) 0.4 MG Capsule Take 1 Capsule by mouth daily. 90 Capsule 3 3 Active fluconazole (DIFLUCAN) 100 MG Tablet Take 1 Tablet by mouth daily. 10 Tablet 3 Active DULoxetine (CYMBALTA) [address] Particles Take 1 capsule by mouth once daily 90 Capsule 3 Active Active Problems No known active problems Family History Medical History Relation Name Comments Aneurysm Mother Relation Name Status Comments Mother Social History Tobacco Use Types Packs/Day Years Used Date Smoking Tobacco: Never Smokeless Tobacco: Never Tobacco Cessation:Counseling Given: No Alcohol Use Standard Drinks/Week Comments Yes 0 (1 standard drink = 0.6 oz pur e alcohol) occasional Sex and Gender Information Value Date Recorded Sex Assigned at Not on file Legal Sex Male 12:43 AM CDT Gender Identity Not on file Sexual Orientation Not on file Last Filed Vital Signs Vital Sign Reading Time Taken Comments Blood Pressure 121/56 03/10/2023 9:47 AM CDT Pulse 76 03/10/2023 9:47 AM CDT Temperature 36.4 ??C (97.5 ??F) 03/10/2023 9:47 AM CD T Respiratory Rate 19 03/10/2023 9:47 AM CDT Oxygen Saturation 97% 03/03/2023 3:07 PM CDT Inhaled Oxygen Concentration - - Weight 70.8 kg (156 lb) 03/10/2023 9:47 AM CDT Height 165.1 cm (5' 5 ) 03/10/2023 9:47 AM CDT Body Mass Index 25.96 03/10/2023 9:47 AM CDT Plan of Treatment Health Maintenance Due Date Last Done Comments Hepatitis C Virus (HCV) Screening 1940 Zoster Immunization (1 of 2) 1990 Hepatitis B Immunization (2 of 3 - Hep B Twinrix 3-dose series) 11/29/2021 11/01/2021 Influenza Immunization (#1) 01/14/202412/13, 02/13/2022, 02/04/2021, Additional history exists SARS-COV-2 Immunization ( season) 2024 05/26/2022, 03/16/2021, 07/22/2020, Additional history exists Pneumococcal Immunization (50+ years) Completed 03/24/2015, 03/15/2014 Pneumococcal Immunization Combined Discontinued 03/24/2015, 03/15/2014 DTaP/Tdap/Td Immunization Discontinued 03/21/2020 TdaP Immunization Completed 03/21/2020 Respiratory Syncytial Virus (RSV) Immunization (Adult) Completed 12/31/2022 Meningococcal Immunization (ACWY) Aged Out No longer eligible based on patient's age to complete this topic Rotavirus Immunization Aged Out No lo nger eligible based on patient's age to complete this topic [facility] Care Teams Wax Coating Machine Tender Relationship Specialty Start Date End Date Sebastian Silverio MD PCP - General Internal Medicine 06/02/21 Becki Garcia MD [address] [address] Consulting Physician Urology 12/20/22 Emmett Sweeney MD [address] [place] [address] Consulting Physician Neurology 03/04/22
--- OUTSIDE RECORDS SUMMARY | 2024-06-10 16:58 | XMS_ITS | Referral Summary ---
Author Organization [facility] Address [address] [place] [address] Care Team Providers Care Paint Stripper Name Role Phone Sebastian Silverio MD Primary Care Provider [phone] Source Comments [facility],non-owned Affiliates and Associated Physician Practices is amultiple site organization consisting of ambulatory clinics and hospital sitesin [place], [place], [place] and [place]. This disclosure is being madepursuant to the Care Everywhere program and may not contain all information available regarding this patient. Last updated 18.[facility] Allergies No known active allergies Medications * Be aware that medications may not be up to date on this document. Alwaysverify current medications with the patient. Medication Sig Dispensed Refills Start Date End Date Status tamsulosin (Flomax) 0.4 MG capsule Take 1 (one) capsule by mouth once daily 03/06/2023 Active dapagliflozin propanediol (Farxiga) 5 MG tablet Take 1 (one) tablet by mouth once daily Active atorvastatin (Lipitor) 40 MG tablet Take 1 (one) tablet by mouth at bedtime Active metFORMIN (Glucophage) 500 MG tablet Take 2 (two) tablets by mouth once daily Active traZODone (Desyrel) 50 MG tablet Take 1 (one) tablet by mouth at bedtime Active busPIRone (Buspar) 5 MG tablet Take 1 (one) tablet by mouth 2 times daily Active midodrine (Proamatine) 5 MG tablet Take 2 (two) tablets by mouth 3 times daily before meals Active magnesium oxide (Mag-Ox) 400 MG tablet Take 2 (two) tablets by mouth 2 times daily Active cimetidine (Tagamet) 300 MG tablet Take 1 (one) tablet by mouth 2 times daily Active ciprofloxacin (Cipro) 500 MG tablet Take 1 (one) tablet by mouth 2 times daily 6 tablet 08/31/2023 Active Social History Tobacco Use Types Packs/Day Years Used Date Smoking Tobacco: Never Smokeless Tobacco: Never Tobacco Cessation:Counseling Given: Not Answered Alcohol Use Standard Drinks/Week Comments Yes 1 (1 standard drink = 0.6 oz pur e alcohol) 1 - whiskey Sex and Gender Information Value Date Recorded Sex Assigned at Not on file Gender Identity Not on file Sexual Orientation Not on file Last Filed Vital Signs Vital Sign Reading Time Taken Comments Blood Pressure 143/73 08/31/2023 4:19 PM CDT Pulse 87 08/31/2023 3:34 PM CDT Temperature 36.6 ??C (97.8 ??F) 08/31/2023 3:00 PM CD T Respiratory Rate 16 08/31/2023 3:34 PM CDT Oxygen Saturation 97% 08/31/2023 3:34 PM CDT Inhaled Oxygen Concentration - - Weight 74.8 kg (165 lb) 08/31/2023 11:14 AM CDT Height 165.1 cm (5' 5 ) 08/31/2023 11:14 AM CDT Body Mass Index 27.46 08/31/2023 11:14 AM CDT Plan of Treatment Not on file Care Teams Paint Stripper Relationship Specialty Start Date End Date Sebastian Silverio MD [address] [place] [phone] PCP - General Internal Medicine 08/31/23
--- OUTSIDE RECORDS SUMMARY | 2024-06-10 16:58 | XMS_ITS | Clinical Summary ---
Author Organization [facility] [employer] Address [address] [place] [address] Care Team Providers Care Tool And Cutter Grinder Name Role Phone Sebastian Silverio MD Primary Care Provider [phone] Source Comments [facility] [employer],non-owned Affiliates and Associated Physician Practices is amultiple site organization consisting of ambulatory clinics and hospital sitesin [place], [place], [place] and [place]. This disclosure is being madepursuant to the Care Everywhere program and may not contain all information available regarding this patient. Last updated 18.[facility] [employer] Allergies No known active allergies Medications * [...] 08/31/2023 11:14 AM CDT Plan of Treatment Health Maintenance Due Date Last Done Comments DTAP/TDAP/TD VACCINES (1 - Tdap) [birth year]24/1959 PNEUMOCOCCAL VACCINE 50+ (1 of 1 - PCV) 1990 ZOSTER VACCINE (1 of 2) 1990 Respiratory Syncytial Virus (RSV) Vaccine Pt: or over 60 yrs (1 - 1-dose 75+ series) 09/24/2015 COVID-19 VACCINE ( - season) 2024 INFLUENZA VACCINE (#1) 2024 9, 02/05/2018, 02/03/2018, Additional history exists DEPRESSION SCREENING 05/15/2024 MEDICARE AWV ? CALENDAR YEAR 2024 HEPATITIS B VACCINE Aged Out No longe r eligible based on patient's age to complete this topic HIB VACCINE Aged Out No longer eligi ble based on patient's age to complete this topic HPV VACCINE Aged Out No longer eligi ble based on patient's age to complete this topic MENINGOCOCCAL (Group B) VACCINE Aged Out No longer eligible based on patient's age to complete this topic MENINGOCOCCAL VACCINE Aged Out No lindsey svetlana eligible based on patient's age to complete this topic Care Teams Tool And Cutter Grinder Relationship Specialty Start Date End Date Sebastian Silverio MD [address] [place] [phone] PCP - General Internal Medicine 08/31/23
--- OUTSIDE RECORDS SUMMARY | 2024-06-10 16:58 | XMS_ITS | Patient Health Summary ---
Author Organization [facility] Address [address] [place] [address] Care Team Providers Care Shucker Name Role Phone Sebastian Silverio MD Primary Care Provider [phone] Note from [facility],non-owned Affiliates and Associated Physician Practices is amultiple site organization consisting of ambulatory clinics and hospital sitesin [place], [place], [place] and [place]. This disclosure is being madepursuant to the Care Everywhere program and may not contain all information available regarding this patient. Last updated 18.[facility] Dada Allergies No known active allergies Medications * Be aware that medications may not be up to date on this document. Alwaysverify current medications with the patient. * tamsulosin (Flomax) 0.4 MG capsule(Started 03/06/2023) Take 1 (one) capsule by mouth once daily * dapagliflozin propanediol (Farxiga) 5 MG tablet Take 1 (one) tablet by mouth once daily * atorvastatin (Lipitor) 40 MG tablet Take 1 (one) tablet by mouth at bedtime * metFORMIN (Glucophage) 500 MG tablet Take 2 (two) tablets by mouth once daily * traZODone (Desyrel) 50 MG tablet Take 1 (one) tablet by mouth at bedtime * busPIRone (Buspar) 5 MG tablet Take 1 (one) tablet by mouth 2 times daily * midodrine (Proamatine) 5 MG tablet Take 2 (two) tablets by mouth 3 times daily before meals * magnesium oxide (Mag-Ox) 400 MG tablet Take 2 (two) tablets by mouth 2 times daily * cimetidine (Tagamet) 300 MG tablet Take 1 (one) tablet by mouth 2 times daily * ciprofloxacin (Cipro) 500 MG tablet(Started 08/31/2023) Take 1 (one) tablet by mouth 2 times daily Social History Tobacco Use Types Packs/Day Years [...] Mass Index 27.46 08/31/2023 11:14 AM CDT Procedures * CARDIAC RHYTHM STRIP ORDER(Performed 09/04/2023) * GLUCOSE - POINT OF CARE(Performed 08/31/2023) * CYTOLOGY NON-HYDRO PNEUMATIC TESTER PANEL (STL)(Performed 08/31/2023) Performed for Diagnosis unknown * PATHOLOGY TISSUE EXAM (STL)(Performed 08/31/2023) Performed for Diagnosis unknown * LARYNGEAL MASK AIRWAY(Performed 08/31/2023) * IN CYSTOURETHROSCOPY(Performed 08/31/2023) Performed for Diagnosis unknown * IN BIOPSY OF PROSTATE,NEEDLE/PUNCH(Performed 08/31/2023) Performed for Diagnosis unknown * GLUCOSE - POINT OF CARE(Performed 08/31/2023) Results * CARDIAC RHYTHM STRIP ORDER (09/04/2023 6:16 PM CDT) Narrative 09/04/2023 6:16 PM CDT Ordered by an unspecified provider. Scanned Document CARDIAC SERVICES ORD ERABLES * (ABNORMAL) GLUCOSE - POINT OF CARE (08/31/2023 2:17 PM CDT) Only the most recent of2 resultswithin the time period is included. Glucose WB/POC 127(H) 70 - 106 mg/dL 08/31/2023 2:22 PM CDT [facility] Specimen Type Cap Fingerstick 2023 2:22 PM CDT [facility] Blood BLOOD SPECIMEN / Unknown 08/31/2023 2:17 PM CDT 08/31/2023 2:22 PM CDT Becki Lehman MD LAB - POINT OF CARE ORDERABLES [facility] [address] [place] [address] * CYTOLOGY NON-HYDRO PNEUMATIC TESTER PANEL (STL) (08/31/2023 2:13 PM CDT) Pathologist [facility] Case Report Cytology Non Vulcanizer Rubber Plate Report ? Case: [id number] ? Authorizing Provider: ??Becki Garcia MD ?Collected: ? 08/31/2023 02:13 PM ? Ordering Location: ? [facility] ? Received: ?08/31/2023 03:01 PM ? Pathologist: ? Bryan Jacques, ? MD ? Specimen: ?Urine, URINE ? 09/01/2023 7:04 PM [facility] Final Diagnosis Urine: - Atypical cellular clusters 09/01/2023 7:04 PM [facility] Clinical History Elevated PSA and microscopic hematuria 09/01/2023 7:04 PM [facility] Gross Description 20 mL of yellow urine is received. A Pap-stained ThinPrep slide is produced. GRW 09/01/2023 7:04 PM [facility] Microscopic Description In a Pap-stained ThinPrep slide, there are scattered basal to intermediate urothelial cells mixed with occasional aggregates of atypical cells with somewhat increased ijqpadp-gd-gumwgqxvrx c ratios. 09/01/2023 7:04 PM [facility] Pathologist Location at [facility] 09/01/2023 7:04 PM [facility] Disclaimer All histochemical and/or immunohistochemical results are interpreted with controls that demonstrate appropriate staining reactions before reporting results. Note on use of immunocytochemistry reagents: This test was developed and its performance characteristic determined by [facility], Department of Laboratory Medicine. It has not been cleared or approved by the U.S. Food and Drug Administration (FDA). The FDA has determined that such clearance or approval is not necessary. The test is used for clinical purpose. It should not be regarded as investigational or for research. This laboratory is certified to perform high complexity testing. The performance characteristics of the IHC/CANDIDO assays have been validated on formalin-fixed paraffin embedded tissues only. The assays have not been validated on decalcified tissues. Results should be interpreted with caution. 09/01/2023 7:04 PM [facility] Embedded Images 09/01/2023 7:04 PM CDT [facility] Pathology/Cytolo gy URINE / Unknown 08/31/2023 2:13 PM CDT 08/31/2023 3:01 PM CDT Comment:Pre-op diagnosis: Diagnosis unknown [R69] Becki Lehman MD LAB - PATHOLOGY/CYTO LOGY ORDERABLES Performing Organization Address [facility]/ZIP Co de Phone Number [facility] [address] [place] [address] * PATHOLOGY TISSUE EXAM (STL) (08/31/2023 2:10 PM CDT) Case Report Surgical Pathology Report ? Case: [id number] ? Authorizing Provider: ??Becki Garcia MD ?Collected: ? 08/31/2023 02:10 PM ? Ordering Location: ? [facility] ? Received: ?08/31/2023 02:54 PM ? Pathologist: ? Yary Harmon MD ? Specimens: ?? A) - Prostate Biopsy, RIGHT LATERAL BASE ? B) - Prostate Biopsy, RIGHT LATERAL MID ? C) - Prostate Biopsy, RIGHT LATERAL APEX ? D) - Prostate Biopsy, RIGHT MID BASE ? E) - Prostate Biopsy, RIGHT MID MID ? F) - Prostate Biopsy, RIGHT MID APEX ? G) - Prostate Biopsy, LEFT LATERAL BASE ? H) - Prostate Biopsy, LEFT LATERAL MID ? I) - Prostate Biopsy, LEFT LATERAL APEX ? J) - Prostate Biopsy, LEFT MID BASE ? K) - Prostate Biopsy, LEFT MID MID ? L) - Prostate Biopsy, LEFT MID APEX ? M) - Prostate Biopsy, REGION OF INTREST #1 ? 10/06/2023 4:58 PM CDT [facility] Final Diagnosis Prostate, right lateral base, biopsy (A) - Adenocarcinoma, Colette score 6 (3+3), prognostic group 1, involving 1 of 1 core, 78% of total core tissue, 7 mm in length Prostate, right latera mid, biopsy (B) - Adenocarcinoma, Jena score 6 (3+3), prognostic group 1, involving 1 of 1 core, 100% of total core tissue, 11 mm in length - Perineural invasion present Prostate, right lateral apex, biopsy (C) - Adenocarcinoma, Jena score 6 (3+3), prognostic group 1, involving 1 of 1 core, 50% of total core tissue, 3 mm in length Prostate, right mid base, biopsy (D) - Adenocarcinoma, Jena score 7 (3+4, 10% pattern 4), prognostic group 2, involving 1 of 1 core, 100% of total core tissue, 6 mm in length Prostate, right mid mid, biopsy (E) - Adenocarcinoma, Jena score 6 (3+3), prognostic group 1, involving 1 of 1 core, 100% of total core tissue, 11 mm in length Prostate, right mid apex, biopsy (F) - Adenocarcinoma, Colette score 7 (3+4, 5% pattern 4), prognostic group 2, involving 1 of 1 core, 85% of total core tissue, 11 mm in length - Perineural invasion present Prostate, left lateral base, biopsy (G) - Focal atypical glands Prostate, left lateral mid, biopsy (H) - Adenocarcinoma, Jena score 6 (3+3), prognostic group 1, involving 1 of 1 core, 30% of total core tissue, 3 mm in length Prostate, left lateral apex, biopsy (I) - Focal atypical glands Prostate, left mid base, biopsy (J) - Adenocarcinoma, Jena score 6 (3+3), prognostic group 1, involving 1 of 1 core, 27% of total core tissue, 4 mm in length Prostate, left mid mid, biopsy (K) - Benign prostatic tissue Prostate, left mid apex, biopsy (L) - Focal atypical glands Prostate, region of interest, biopsy (M) - Adenocarcinoma, Jena score 7 (3+4, 10% pattern 4), prognostic group 2, involving 2 of 2 cores, 75% of total core tissue, 23 mm in length (see comment) 10/06/2023 4:58 PM [facility] Addendum 2 Results of the requested assay are reproduced in the attached image file. 10/06/2023 4:58 PM [facility] Addendum electronically signed by Bryan Jacques MD on 10/06/2023 at 4:58 PM Addendum 1 A request for Decipher Prostate Biopsy [employer] testing was received 09/27/23 for patient Jose Sneed (40) from Dr. Karri Rhodes. The test is to be performed on tissue from [id number] (08/31/23). The case report, slides, and blocks for the cited accession were retrieved from the archives. The pathologist whose signature appears below reviewed the original pathology report, examined candidate H&E slides, and selected the block (M1) appropriate to the specifications of the ordered molecular analysis. The tissue was forwarded to [facility], where the subject molecular tests will be performed. An addendum result will be issued when the results of this molecular test are available. 10/06/2023 4:58 PM [facility] Addendum electronically signed by Yary Harmon MD on 09/27/2023 at 10:59 AM Clinical History The patient is an 82-year-old man with abnormal prostate imaging. Operative procedure: prostate biopsies. 10/06/2023 4:58 PM [facility] Gross Description The specimen is identified with the patient's name and date of . Received in formalin, specimen A, right lateral base is a white-allred, soft tissue core, 1 cm long and 0.1 cm diameter. Entirely submitted in cassette A1. Received in formalin, specimen B, right lateral mid is a white-allred, soft tissue core, 1.4 cm long and less than 0.1 cm diameter. Entirely submitted in cassette B1. Received in formalin, specimen C, right lateral apex is a white-allred, soft tissue core, 0.8 cm long and less than 0.1 cm diameter. Entirely submitted in cassette C1. Received in formalin, specimen D, right mid base is a white-allred, soft tissue core, 0.1 cm long and less than 0.1 cm diameter, and associated blood clot. Entirely submitted in cassette D1. Received in formalin, specimen E, right mid mid is a 1.5 cm long and less than 0.1 cm diameter allred-white soft tissue core. Entirely submitted in cassette E1. Received in formalin, specimen F, right mid apex is a white-allred, soft tissue core, 1.7 cm long and less than 0.1 cm diameter. Entirely submitted in cassette F1. Received in formalin, specimen G, left lateral base are 3 allred to pink-allred soft tissue cores, 0.1-1.1 cm long and less than 0.1 cm diameter. Entirely submitted in cassette G1. Received in formalin, specimen H, left lateral mid is a white-allred, soft tissue core, 1.3 cm long and less than 0.1 cm diameter. Entirely submitted in cassette H1. Received in formalin, specimen I, left lateral apex is a white-allred, soft tissue core, 0.9 cm long and less than 0.1 cm diameter. Entirely submitted in cassette I1. Received in formalin, specimen J, left mid base are 4 pink to white-allred tissue cores, 0.1-1.6 cm long and less than 0.1 cm diameter. Entirely submitted in cassette J1. Received in formalin, specimen K, left mid mid are 4 allred-white tissue cores, 0.3-0.5 cm long and less than 0.1 cm diameter. Entirely submitted in cassette K1. Received in formalin, specimen L, left mid apex is a white-allred, soft tissue core, 1.3 cm long and less than 0.1 cm diameter. Entirely submitted in cassette L1. Received in formalin, specimen M, region of interest #1 are multiple allred-white tissue cores, 0.2-2 cm long and less than 0.1 cm diameter. Entirely submitted in cassette M1. LJ 10/06/2023 4:58 PM [facility] Microscopic Description Microscopic examination substantiates the above diagnosis. 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 A PIN4 immunostain (multiplex stain procedure [AMACR, p63, HMWK], controls adequate) was performed, showing retained basal cells around foci of atypical epithelium that lack a frankly expansile growth pattern; these foci are best classified as atypical intraductal proliferation and do not satisfy criteria for ronan intraductal carcinoma. No cribriform carcinoma is present. 10/06/2023 4:58 PM [facility] Pathologist Location at [facility] 10/06/2023 4:58 PM [facility] Disclaimer All histochemical and/or immunohistochemical results are interpreted with controls that demonstrate appropriate staining reactions before reporting results. Note on use of immunocytochemistry reagents: This test was developed and its performance characteristic determined by [facility], Department of Laboratory Medicine. It has not been cleared or approved by the U.S. Food and Drug Administration (FDA). The FDA has determined that such clearance or approval is not necessary. The test is used for clinical purpose. It should not be regarded as investigational or for research. This laboratory is certified to perform high complexity testing. The performance characteristics of the IHC/CANDIDO assays have been validated on formalin-fixed paraffin embedded tissues only. The assays have not been validated on decalcified tissues. Results should be interpreted with caution. 10/06/2023 4:58 PM [facility] Embedded Images 10/06/2023 4:58 PM CDT [facility] Pathology/Cytology BIOPSY OF PROSTATE / Unknown 08/31/2023 2:10 PM CDT 08/31/2023 2:54 PM CDT Comment:Pre-op diagnosis: Diagnosis unknown [R69] Miscellaneous samples (specimen) BIOPSY OF PROSTATE / Unknown 08/31/2023 2:10 PM CDT 08/31/2023 2:54 PM CDT Comment:Pre-op diagnosis: Diagnosis unknown [R69] Miscellaneous samples (specimen) BIOPSY OF PROSTATE / Unknown 08/31/2023 2:10 PM CDT 08/31/2023 2:54 PM CDT Comment:Pre-op diagnosis: Diagnosis unknown [R69] Miscellaneous samples (specimen) BIOPSY OF PROSTATE / Unknown 08/31/2023 2:10 PM CDT 08/31/2023 2:54 PM CDT Comment:Pre-op diagnosis: Diagnosis unknown [R69] Miscellaneous samples (specimen) BIOPSY OF PROSTATE / Unknown 08/31/2023 2:10 PM CDT 08/31/2023 2:54 PM CDT Comment:Pre-op diagnosis: Diagnosis unknown [R69] Miscellaneous samples (specimen) BIOPSY OF PROSTATE / Unknown 08/31/2023 2:10 PM CDT 08/31/2023 2:54 PM CDT Comment:Pre-op diagnosis: Diagnosis unknown [R69] Miscellaneous samples (specimen) BIOPSY OF PROSTATE / Unknown 08/31/2023 2:10 PM CDT 08/31/2023 2:54 PM CDT Comment:Pre-op diagnosis: Diagnosis unknown [R69] Miscellaneous samples (specimen) BIOPSY OF PROSTATE / Unknown 08/31/2023 2:10 PM CDT 08/31/2023 2:54 PM CDT Comment:Pre-op diagnosis: Diagnosis unknown [R69] Miscellaneous samples (specimen) BIOPSY OF PROSTATE / Unknown 08/31/2023 2:10 PM CDT 08/31/2023 2:54 PM CDT Comment:Pre-op diagnosis: Diagnosis unknown [R69] Miscellaneous samples (specimen) BIOPSY OF PROSTATE / Unknown 08/31/2023 2:10 PM CDT 08/31/2023 2:54 PM CDT Comment:Pre-op diagnosis: Diagnosis unknown [R69] Miscellaneous samples (specimen) BIOPSY OF PROSTATE / Unknown 08/31/2023 2:10 PM CDT 08/31/2023 2:54 PM CDT Comment:Pre-op diagnosis: Diagnosis unknown [R69] Miscellaneous samples (specimen) BIOPSY OF PROSTATE / Unknown 08/31/2023 2:10 PM CDT 08/31/2023 2:54 PM CDT Comment:Pre-op diagnosis: Diagnosis unknown [R69] Miscellaneous samples (specimen) BIOPSY OF PROSTATE / Unknown 08/31/2023 2:10 PM CDT 08/31/2023 2:54 PM CDT Comment:Pre-op diagnosis: Diagnosis unknown [R69] Becki Lehman MD LAB - PATHOLOGY/CYTO LOGY ORDERABLES Performing Organization Address City/State/[facility] Co de Phone Number [facility] [address] [phone] * LARYNGEAL MASK AIRWAY (08/31/2023 1:41 PM CDT) Narrative Jeremy Alvarenga APRN-CRNA - 08/31/2023 1:41 PM CDT Jeremy Alvarenga APRN-CRNA ? 08/31/2023 ??1:42 PM LMA Placement Procedure/LDA Note: Patient Location: OR. LMA Insertion Date/Time: ??08/31/2023 1:23 PM Procedure: LMA. Pretreatment: 100% O2 Induction: standard IV Patient position: sniffing. Mask Ventilation: not attempted Type: ??LMA Size: ??4 Number of Attempts: 1. Placement verified by: CO2 monitor Dentition unchanged? ??Yes Procedure Start Time: 08/31/2023 1:23 PM. Staff Section ? Anesthesia Provider: Jeremy Alvarenga APRN-CRNA, Performed the procedure ? Provider #1: Beni Penny DO. Beni Penny DO [facility] Care Teams Shucker Relationship Specialty Start Date End Date Sebastian Silverio MD [address] [place] [id number] PCP - General Internal Medicine 08/31/23
--- OUTSIDE RECORDS SUMMARY | 2024-06-10 16:58 | XMS_ITS | CONTINUITY OF CARE DOCUMENT ---
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 Indra Cadet MD Hypertension active ? Indra Cadet MD Neuropathic pain active Indra Cadet MD Abnormal electrocardiogram active Indra emanuel MD Ventricular tachycardia completed - Indra Cadet MD CAD--70% lesion in RCA PCI 4.0x34mm [place] STEVE and FFR LAD nl 06/2021, EF was 35% - now 55% , mod MR active Indra Cadet MD BACK PAIN status post surgery active Indra Cadet MD Hyperlipidemia active Indra Cadet MD Mitral regurgitation, modto severe EF 35%, 05/2021- improved 10/03 Ef 55% , mod MR active Indra Cadet MD Atrial fibrillation active Jorge Wheelerzai PVCs active Indra Cadet MD Dizziness active Indra Cadet MD Bradycardia active Iron Banegas Sick sinus syndrome active Iron Banegas Syncope active Iron Makenzie Pain in left shoulder completed - Indra Cadet MD Pacemaker: completed - Jorge Liamwale (Status post) Prostate cancer active Jorge Gomez Cardiology examination active Jorge Gomez ENCOUNTERS Date Type Provider Location Encounter Diag nosis - In-person encounter Office Visit Indra Cadet MD [facility] - In-person encounter Office Visit Indra Cadet MD [facility] Pain in left shoulder - In-person encounter Office Visit Bridget Ramirez MD [facility] Cardiology examination - In-person encounter Office Visit Indra Cadet MD [facility] Atrial fibrillationPacemaker:Pr ostate cancer - In-person encounter Office Visit Bridget Ramirez MD [facility] - In-person encounter Office Visit Bridget Ramirez MD [facility] - In-person encounter Office Visit Bridget Ramirez MD [facility] - In-person encounter Office Visit Bridget Ramirez MD [facility] BradycardiaSick sinus syndromeSyncope - In-person encounter Office Visit Bridget Ramirez MD [facility] - In-person encounter Office Visit Bridget Ramirez MD [facility] - In-person encounter Office Visit Bridget Ramirez MD [facility] - In-person encounter Office Visit Bridget Ramirez MD [facility] - In-person encounter Office Visit Indra Cadet MD [facility] Dizziness - In-person encounter Office Visit Bridget Ramirez MD [facility] - In-person encounter Office Visit Bridget Ramirez MD [facility] - In-person encounter Office Visit Bridget Ramirez MD [facility] - In-person encounter Office Visit Indra Cadet MD [facility] PVCs - In-person encounter Office Visit Indra Cadet MD [facility] CAD--70% lesion in R CA PCI 4.0x34mm [place] STEVE and FFR LAD nl 06/2021, EF was 35% - now 55% , mod MR 5/222Mitral regurgitation, modto severe EF 35%, 05/2021- improved 10/03 Ef 55% , mod MR - In-person encounter Office Visit Indra Cadet MD [facility] CAD--70% lesion in R CA PCI 4.0x34mm [place] STEVE and FFR LAD nl 06/2021, EF was 35% - now 55% , mod MR 5/222Mitral regurgitation, modto severe EF 35%, 05/2021- improved 10/03 Ef 55% , mod MRAtrial fibrillation - In-person encounter Office Visit Indra Cadet MD [facility] CAD--70% lesion in R CA PCI 4.0x34mm [place] STEVE and FFR LAD nl 06/2021, EF was 35% - now 55% , mod MR 5/222Mitral regurgitation, modto severe EF 35%, 05/2021- improved 10/03 Ef 55% , mod MR - In-person encounter Office Visit Indra Cadet MD [facility] - In-person encounter Office Visit Indra Cadet MD [facility] - In-person encounter Office Visit Indra Cadet MD [facility] - In-person encounter Office Visit Indra Cadet MD [facility] Irregular heart beatsVentricular tachycardiaBACK PAIN status post surgery - In-person encounter Office Visit Indra Cadet MD [facility] CAD--70% lesion in R CA PCI 4.0x34mm [place] STEVE and FFR LAD nl 06/2021, EF was 35% - now 55% , mod MR 5/222Hyperlipidemia - In-person encounter Office Visit Indra Cadet MD [facility] CAD--70% lesion in RCA PCI 4.0x34mm [place] STEVE and FFR LAD nl 06/2021, EF was 35% - now 55% , mod MR 5/222BACK PAIN status post surgery - In-person encounter Office Visit Indra Cadet MD [facility] Diabetes, Type 2HypertensionNeuropathic painAbnormal electrocardiogram VITAL SIGNS Date Observation Value Provider Body Mass Index (Ratio) 28.24 kg/m2 Rusty Cadet MD blood pressure, diastolic 83 mm[Hg] Ashely enriquez Ricks blood pressure, systolic 145 mm[Hg] ginette alexandre Ricks oxygen saturation, oximetry 97 % [facility] 80 /min [facility] respiratory rate E&M 12 /min [facility] weight E&M 175 [lb_av] [facility] height E&M 66 [in_i] [facility] blood pressure, cuff size regular [facility] Body Mass Index (Ratio) 27.11 kg/m2 Rusty Cadet MD blood pressure, diastolic 65 mm[Hg] Ashely Ricks blood pressure, systolic 119 mm[Hg] Lorelei Ricks oxygen saturation, oximetry 100 % [facility] pulse rate 80 /min Luz Marina [place] respiratory rate E&M 12 /min [facility] weight E&M 168 [lb_av] [facility] height E&M 66 [in_i] [facility] blood pressure, cuff size regular Ashely chisholm [place] Body Mass Index (Ratio) 25.82 kg/m2 Jorge Ahmedzai blood pressure, diastolic 70 mm[Hg] Li nkLogic blood pressure, systolic 106 mm[Hg] Aida kLog blood pressure, cuff size regular Grey Vickers blood pressure, diastolic 70 mm[Hg] [place] Vickers blood pressure, systolic 106 mm[Hg] Sd mccall Vickers oxygen saturation, oximetry 98 % Annalee Vickers pulse rate 40 /min Annalee Vickers weight E&M 160 [lb_av] Annalee Vickers respiratory rate E&M 12 /min Annalee Vickers height E&M 66 [in_i] Annalee Vickers Body Mass Index (Ratio) 26.95 kg/m2 Rusty Cadet MD blood pressure, diastolic 63 mm[Hg] Ky olesya Iron blood pressure, systolic 109 mm[Hg] Kyl ia Iron oxygen saturation, oximetry 98 % Kylia Iron pulse rate 67 /min Kylia Iron respiratory rate E&M 12 /min Jimy lopes weight E&M 167 [lb_av] Kylia Iron blood pressure, cuff size regular Ky olesya Iron height E&M 66 [in_i] Kylia Iron Body Mass Index (Ratio) 26.14 kg/m2 Becka Banegas blood pressure, cuff size regular Ke rri Gruenenfelder blood pressure, diastolic 86 mm[Hg] Ke rri Gruenenfelder blood pressure, systolic 124 mm[Hg] Ker ri Gruenenfelder oxygen saturation, oximetry 93 % Alley Gruenenfelder respiratory rate E&M 12 /min Alley G ruenenfelder pulse rate 65 /min Alley Gruenenfe lder weight E&M 162 [lb_av] Alley Gruenenfe lder height E&M 66 [in_i] Alley Gruenenfe lder Body Mass Index (Ratio) 26.63 kg/m2 Dustin Ramirez MD blood pressure, cuff size regular Ke rri Gruenenfelder blood pressure, diastolic 70 mm[Hg] Ke rri Gruenenfelder blood pressure, systolic 132 mm[Hg] Ker ri Gruenenfelder oxygen saturation, oximetry 96 % Alley Gruenenfelder respiratory rate E&M 12 /min Alley G ruenenfelder pulse rate 52 /min Alley Gruenenfe lder weight E&M 165 [lb_av] Alley Gruenenfe lder height E&M 66 [in_i] Alley Gruenenfe lder Body Mass Index (Ratio) 26.79 kg/m2 Dustin Ramirez MD blood pressure, cuff size regular Ke rri Gruenenfelder blood pressure, diastolic 82 mm[Hg] Ke rri Gruenenfelder blood pressure, systolic 122 mm[Hg] Ker ri Gruenenfelder oxygen saturation, oximetry 98 % Alley Gruenenfelder respiratory rate E&M 12 /min Alley G ruenenfelder pulse rate 66 /min Alley Gruenenfe lder weight E&M 166 [lb_av] Alley Gruenenfe lder height E&M 66 [in_i] Alley Gruenenfe lder weight E&M 162 [lb_av] Shivani Christie g Body Mass Index (Ratio) 26.47 kg/m2 Dustin Ramirez MD blood pressure, cuff size regular Ke rri Gruenenfelder blood pressure, diastolic 72 mm[Hg] Ke rri Gruenenfelder blood pressure, systolic 106 mm[Hg] Ker ri Gruenenfelder oxygen saturation, oximetry 97 % Alley Gruenenfelder respiratory rate E&M 12 /min Alley G ruenenfelder pulse rate 51 /min Alley Gruenenfe lder weight E&M 164 [lb_av] Alley Gruenenfe lder height E&M 66 [in_i] Alley Gruenenfe lder Body Mass Index (Ratio) 27.44 kg/m2 Jorge Gomez blood pressure, cuff size large Ke rri Gruenenfelder blood pressure, diastolic 71 mm[Hg] Ke rri Gruenenfelder blood pressure, systolic 141 mm[Hg] Ker ri Gruenenfelder oxygen saturation, oximetry 95 % Alley Gruenenfelder respiratory rate E&M 16 /min Alley G ruenenfelder pulse rate 59 /min Alley Gruenenfe lder weight E&M 170 [lb_av] Alley Gruenenfe lder height E&M 66 [in_i] Alley Gremmettnenfe lder oxygen saturation, oximetry 97 % Jorge Ahmedzai pulse rate 65 /min Jorge Ahmedzai blood pressure, diastolic 77 mm[Hg] Ri az Ahmedzai blood pressure, systolic 152 mm[Hg] Pily z Ahmedzai blood pressure, cuff size large Ke rri Gruenenfelder pulse rate 98 /min Alley Gruenenfe lder respiratory rate E&M 14 /min Alley G ruenenfelder oxygen saturation, oximetry 98 % Alley Gruenenfelder Body Mass Index (Ratio) 26.31 kg/m2 Dustin Ramirez MD blood pressure, cuff size large Ke rri Gruenenfelder blood pressure, diastolic 68 mm[Hg] Ke rri Gruenenfelder blood pressure, systolic 99 mm[Hg] Ker ri Gruenenfelder oxygen saturation, oximetry 99 % Alley Gruenenfelder respiratory rate E&M 16 /min Alley G ruenenfelder pulse rate 98 /min Alley Gruenenfe lder weight E&M 163 [lb_av] Alley Gruenenfe lder height E&M 66 [in_i] Alley Gruenenfe lder Body Mass Index (Ratio) 26.79 kg/m2 Jorge Ahmedzai blood pressure, diastolic 63 mm[Hg] Li nkLogic blood pressure, systolic 118 mm[Hg] Aida kLogic respiratory rate E&M 16 /min Chastit y Andrew oxygen saturation, oximetry 97 % Chastity Andrew blood pressure, diastolic 63 mm[Hg] astity Andrew blood pressure, systolic 118 mm[Hg] Monica stity Andrew pulse rate 72 /min [facility] weight E&M 166 [lb_av] [facility] height E&M 66 [in_i] [facility] Body Mass Index (Ratio) 26.63 kg/m2 Rusty Cadet MD blood pressure, cuff size large Gila namrata [place] blood pressure, diastolic 65 mm[Hg] Gila ott [place] blood pressure, systolic 100 mm[Hg] [facility] [place] oxygen saturation, oximetry 96 % [facility] respiratory rate E&M 18 /min [facility] meena [place] pulse rate 73 /min [facility] weight E&M 165 [lb_av] [facility] height E&M 66 [in_i] [facility] Body Mass Index (Ratio) 26.14 kg/m2 Rusty Cadet MD pulse rate 56 /min [facility] oxygen saturation, oximetry 100 % [facility] blood pressure, cuff size large Ca [facility] blood pressure, diastolic 60 mm[Hg] Ca ksi [place] blood pressure, systolic 100 mm[Hg] Can di [place] respiratory rate E&M 18 /min Josselyn [facility] weight E&M 162 [lb_av] [facility] height E&M 66 [in_i] [facility] Body Mass Index (Ratio) 27.11 kg/m2 Rusty Cadet MD blood pressure, diastolic 64 mm[Hg] Eliza aguayoLogbelia blood pressure, systolic 116 mm[Hg] Aida Blankenship blood pressure, diastolic 64 mm[Hg] Rh onlee Miranda blood pressure, systolic 116 mm[Hg] Rho ndmeena Miranda oxygen saturation, oximetry 98 % Stormy Ruth pulse rate 50 /min Stormy Miranda respiratory rate E&M 16 /min Stormy Ruth weight E&M 168 [lb_av] Stormy Ruth blood pressure, resting Yes Rhon lee Ruth blood pressure, cuff size regular Rh onlee Ruth height E&M 66 [in_i] Stormy Ruth Body Mass Index (Ratio) 26.95 kg/m2 Rusty Cadet MD pulse rate 56 /min [facility] blood pressure, diastolic 78 mm[Hg] Br ittany [facility] blood pressure, systolic 120 mm[Hg] Radha sabra [facility] oxygen saturation, oximetry 97 % Siria [facility] weight E&M 167 [lb_av] Siria Block respiratory rate E&M 16 /min Brittan Block height E&M 66 [in_i] Siria Block Body Mass Index (Ratio) 28.57 kg/m2 Rusty Cadet MD blood pressure, diastolic 60 mm[Hg] Samuel Fallon blood pressure, systolic 140 mm[Hg] Jossy Fallon oxygen saturation, oximetry 98 % Jania Fallon pulse rate 64 /min Jania Melgoza weight E&M 177 [lb_av] Jania Melgoza height E&M 66 [in_i] Jania Melgoza Body Mass Index (Ratio) 28.08 kg/m2 Rusty Cadet MD blood pressure, diastolic 72 mm[Hg] Samuel Fallon blood pressure, systolic 140 mm[Hg] Jossy Fallon oxygen saturation, oximetry 96 % Jania Fallon pulse rate 55 /min Jania Melgoza weight E&M 174 [lb_av] Jania Melgoza height E&M 66 [in_i] Jania Melgoza Body Mass Index (Ratio) 28.57 kg/m2 Rusty Cadet MD oxygen saturation, oximetry 98 % Junior [facility] respiratory rate E&M 16 /min [facility] pulse rate 85 /min [facility] blood pressure, diastolic 50 mm[Hg] Laura cleaning [facility] blood pressure, systolic 130 mm[Hg] Shania downing [facility] weight E&M 177 [lb_av] [facility] height E&M 66 [in_i] [facility] Body Mass Index (Ratio) 28.89 kg/m2 Rusty Cadet MD blood pressure, diastolic 60 mm[Hg] Arlyn [facility], systolic 120 mm[Hg] [facility], oximetry 96 % [facility] respiratory rate E&M 18 /min Monica O'[facility] pulse rate 60 /min [facility] weight E&M 179 [lb_av] [facility] height E&M 66 [in_i] [facility] Body Mass Index (Ratio) 28.57 kg/m2 Rusty Cadet MD blood pressure, diastolic 80 mm[Hg] Ke rashid Kelly blood pressure, systolic 158 mm[Hg] Meghana Kelly blood pressure, cuff size regular Ke rri Robin oxygen saturation, oximetry 95 % Alley Kelly respiratory rate E&M 18 /min Alley floresjoslynsamuel pulse rate 52 /min Alley Garcia [facility] weight E&M 177 [lb_av] Alley Garcia [facility] height E&M 66 [in_i] Alley Garcia [facility] Body Mass Index (Ratio) 27.92 kg/m2 Rusty Cadet MD blood pressure, resting No Kill [facility] blood pressure, diastolic 80 mm[Hg] Ki [facility] blood pressure, systolic 138 mm[Hg] Shannan fields [place] oxygen saturation, oximetry 98 % [facility] respiratory rate E&M 16 /min [facility] pulse rate 47 /min [facility] weight E&M 173 [lb_av] [facility] height E&M 66 [in_i] [facility] ALLERGIES No Known Drug Allergies RESULTS Date Observation Value Provider Reference Range Interpretation Location prothrombin time (patient) 11.0 s Link[facility] 9.0-11.5 Normal international normalized ratio (INR) 1.1 [facility] Normal calcium, serum 9.3 mg/dL [facility] 8.6-10.3 Normal carbon dioxide, venous blood 29 mmol/L [facility] 20-32 Normal chloride, serum 101 mmol/L [facility] 98-110 Normal potassium, serum 4.6 mmol/L [facility] 3.5-5.3 Normal sodium, serum 137 mmol/L [facility] 135-146 Normal urea nitrogen/creatinin e ratio, serum 17 (calc) [facility] 6-22 Normal creatinine, serum 1.30 mg/dL [facility] 0.70-1.22 High 2022/11/0 5 urea nitrogen, blood 22 mg/dL [facility] 7-25 Normal 5 blood glucose, random 146 mg/dL [facility] 65-99 High 5 magnesium, serum 2.2 mg/dL [facility] 1.5-2.5 Normal 1 prothrombin time (patient) 11.0 s [facility] 9.0-11.5 Normal 1 international normalized ratio (INR) 1.1 [facility] Normal 1 basophils as percent of blood leukocytes 0.4 % [facility] Normal 1 eosinophils as percent of blood leukocytes 3.7 % [facility] Normal 1 monocyte count, blood 7.7 % [facility] Normal 1 lymphocyte count, blood 35.3 % [facility] Normal 1 neutrophils as percent of blood leukocytes 52.9 % [facility] Normal 1 basophils, absolute, manual 37 cells/mcL [facility] 0-200 Normal 1 eosinophils, absolute, manual 344 cells/mcL [facility] 15-500 Normal 1 monocytes, absolute, manual 716 cells/mcL [facility] 200-950 Normal 1 lymphocytes, absolute 3283 CELLS/UL [facility] 850-3900 Normal 1 Absolute Neutrophil count 4920 cells/mcL [facility] 9330-0016 Normal 1 mean platelet volume 11.0 fL LinkLog 7.5-12.5 Normal 1 platelet count 187 THOUSAND/U L [facility]400 Normal 1 red blood cell distribution width 12.8 % [facility] 11.0-15.0 Normal 1 mean corpuscular hemoglobin concentration, RBC 32.6 G/DL LinkLog 32.0-36.0 Normal 1 mean corpuscular hemoglobin, RBC 31.5 pg LinkLog 27.0-33.0 Normal 1 mean corpuscular volume, RBC 96.5 fL LinkLog 80.0-100.0 Normal 2022/09/2 1 hematocrit, blood 38.3 % [facility] 38.5-50.0 Low 1 hemoglobin electrophoresis, blood 12.5 [facility] 13.2-17.1 Low 1 erythrocyte (RBC) count 3.97 MILLION/UL [facility] 4.20-5.80 Low 1 leukocyte (white blood cells) count, blood 9.3 THOUSAND/U L [facility] 3.8-10.8 Normal 1 calcium, serum 9.6 mg/dL [facility] 8.6-10.3 Normal 1 carbon dioxide, venous blood 25 mmol/L [facility] 20-32 Normal 1 chloride, serum 100 mmol/L [facility] 98-110 Normal 1 potassium, serum 4.5 mmol/L [facility] 3.5-5.3 Normal 1 sodium, serum 136 mmol/L [facility] 135-146 Normal 1 urea nitrogen/creatinin e ratio, serum 21 (calc) [facility] 6-22 Normal 1 creatinine, serum 1.89 mg/dL [facility] 0.70-1.22 High 1 urea nitrogen, blood 39 mg/dL [facility] 7-25 High 1 blood glucose, random 80 mg/dL [facility] 65-99 Normal 1 cholesterol, non-HDL, total 64 MG/DL (CALC) Link[facility] <130 Normal 1 cholesterol/HDL ratio, serum, percent 2.2 (calc) [facility]ic <5.0 Normal 1 LDL cholesterol, serum 46 MG/DL (CALC) [facility] Normal 1 triglyceride, serum, fasting 101 mg/dL Link[facility]ic <150 Normal 1 HDL cholesterol, serum 53 mg/dL LinkLogic > OR = 40 Normal 1 cholesterol, serum 117 mg/dL Link[facility]ic <200 Normal HISTORY OF MEDICATION USE Medication Status Instructions Dates Provider Indications Com ments fludrocortisone 0.1 mg tablet active Take 1 tablet by mouth twice a day Jorge Ahmedzai atorvastatin 40 mg tablet active Take 1 tablet by mouth once a day Alley Robin amiodarone 200 mg tablet completed 1 tablet by mouth once a day - Jorge Ahmedzai midodrine 10 mg tablet active TAKE 1 TABLET BY MOUTH THREE TIMES DAILY Alley De Leontegansamuel midodrine 10 mg tablet completed Take 1 tablet by mouth three times a day - Jimy Perdue cephalexin 500 mg capsule completed Take 1 capsule by mouth three times a day - Jorge Dorothymedzai magnesium oxide 400 mg (241.3 mg magnesium) tablet active Take 2 tablets by mouth twice daily Shivani Naineric levofloxacin 500 mg tablet completed Take 1 tablet by mouth once a day - Jorge De La Cruzjennizai Eliquis 5 mg tablet completed Take 1 tablet by mouth twice daily - Iron Makenzie diltiazem HCl 90 mg tablet completed TAKE 1 TABLET BY MOUTH THREE TIMES DAILY - Iron Makenzie duloxetine 30 mg capsule,delayed release(DR/EC) completed twice a day - Jorge De La Cruzmedzai Farxiga 5 mg tablet completed Take 1 tablet by mouth once daily - Jorge Dorothymedzai lisinopril 10 mg tablet completed Take 1 tablet by mouth once daily - Jorge Ahmedzai diltiazem HCl 90 mg tablet completed Take 1 tablet by mouth twice a day - AnnieRobert Breck [facility] amiodarone 200 mg tablet completed Take 1 tablet by mouth once a day - Jorge Ahmedzai amiodarone 200 mg tablet completed - Keiko Song RN gabapentin 100 mg capsule completed 1 capsule by mouth three times a day - Yary Daniels NP Pepcid 20 mg tablet active 1 tablet by mouth twice a day Ricardavanesa Salmeronmiglia [facility] lisinopril 10 mg tablet completed Take 1 tablet by mouth once daily - Ricardavanesa Salmeronmiglia [employer] Eliquis 5 mg tablet completed Take 1 tablet by mouth twice a day - Malou King metoprolol succinate 100 mg tablet extended release 24 hr completed Take 1/2 tablet by mouth once a day - Ricardavanesa Salmeronmiglscooby [facility] clopidogrel 75 mg tablet completed Take 1 tablet by mouth once a day - Yary Daniels NP Eliquis 5 mg tablet completed - Indra Cadet MD metformin (Glucophage XR) 500 mg tablet extended release 24 hr active 1 tablet once a day Jorge Liamwale furosemide 20 mg tablet completed Take 1 tablet by mouth once a day - Ricardavanesa Torrezglscooby [facility] clopidogrel 75 mg tablet completed - Indra Cadet MD metoprolol succinate 200 mg tablet extended release 24 hr completed - Indra Cadet MD Farxiga 5 mg tablet completed Take 1 tablet by mouth once a day - Nikki Holliday metoprolol succinate 25 mg tablet extended release 24 hr completed Take 1 tablet by mouth once a day - Urvashi Maurer RN Eliquis 2.5 mg tablet completed Take 1 tablet by mouth twice a day - Urvashi Maurer RN atorvastatin 40 mg tablet completed Take 1 tablet by mouth once daily - Alley Kelly trazodone 50 mg tablet active Take 1/2 tablet by mouth at bedtime as needed Indra Cadet MD magnesium oxide 400 mg (241.3 mg magnesium) tablet completed Take 2 tablet by mouth twice a day - Shivani Nassar tamsulosin 0.4 mg capsule active daily Yary Daniels NP lisinopril 10 mg tablet completed Take 1 tablet by mouth once a day - Dejah Lima esomeprazole magnesium 20 mg capsule,delayed release(DR/EC) completed Take 1 capsule by mouth once a day - Ricarda SPENCERP biotin 1 mg tablet completed Take 1 tablet by mouth once a day - Yary Daniels NP cholecalciferol (vitamin D3) 125 mcg (5,000 unit) tablet completed Take 1 tablet by mouth once a day - Yary Daniels NP ESOMEPRAZOLE SODIUM 20 MG INTRAVENOUS SOLUTION RECONSTITUTED entered-in- error once daily - Junior Alberto PLAVIX 75 MG ORAL TABLET completed ONE TAB. DAILY - Indra Cadet MD atorvastatin 40 mg tablet completed Take 1 tablet by mouth once a day - Madhavi Glaser aspirin 81 mg tablet,delayed release (DR/EC) completed 1 tablet by mouth once a day - Alley Kelly metformin 500 mg tablet completed 2 tablet by mouth twice a day - Monica Castro HYDROCODONE-ACETA MINOPHEN 10-325 MG ORAL TABLET completed po bid prn - Junior Alberto gabapentin 300 mg capsule completed 2 capsule by mouth every night - Indra Cadet MD CYCLOBENZAPRINE HCL 10 MG ORAL TABLET completed one tab once daily - Jania Fallon SOCIAL HISTORY Date Observation Value Provider drug use no Tomas Nichols alcohol use, average drinks per day social Tomas Nichols alcohol use yes Tomas Nichols smoking status Never smoker Tomas Nichols drug use no Jorge Gomez alcohol use, average drinks per day social Jorge Gomze alcohol use yes Jorge Gomez smoking status Never smoker Jorge Gomez drug use no Jorge Gomez alcohol use, average drinks per day social Jorge Gomez alcohol use yes Jorge Gomez smoking status Never smoker Jorge Gomez drug use no Jorge Gomez alcohol use, average drinks per day social Jorge Gomez alcohol use yes Jorge Gomez smoking status Never smoker Jorge Gomez pacemaker surgery, hx of Pacemaker Surger y,Hx of Bridget Ramirez MD drug use no Jorge Gomez alcohol use, average drinks per day social Jorge Gomez alcohol use yes Jorge Gomez smoking status Never smoker Jorge Gomez drug use no Iron Makenzie alcohol use, average drinks per day social Iron Makenzie alcohol use yes Iron Makenzie smoking status Never smoker Iron Jameson ri drug use no Jorge Gomez alcohol use, average drinks per day social Jorge Gomez alcohol use yes Jorge Gomez smoking status Never smoker Jorge Gomez social history reviewed E&M revi ewed - no changes required Jorge Gomez smoking status Never smoker Yary walker NP social history E&M S moking History: Noreen hernández has never smoked. Jorge Vilaginette social history reviewed E&M revi ewed - no changes required Jorge Vila smoking status Never smoker Alley bloom social history reviewed E&M revi ewed - no changes required Indra Cadet MD social history reviewed E&M revi ewed - no changes required Jroge Gomez drug use no Ricarda Ventimig olesya [facility] alcohol use, average drinks per day social Ricarda Ventimiglia [facility] alcohol use yes Ricarda Ventimig olesya [facility] smoking status Never smoker Alley De Leonmedina wolf number of grandchildren Bridget Daniels NP smoking status Never smoker Anjana Obrienmando e social history reviewed E&M revi ewed - no changes required Indra Cadet MD social history E&M S moking History: Noreen hernández has never smoked. Alisha Beal social history reviewed E&M revi ewed - no changes required Alisha Beal smoking status Never smoker Barby Hallanh en smoking status Never smoker Josselyn Boyer torrey social history reviewed E&M revi ewed - no changes required Jorge Gomez smoking status Never smoker Indra Cadet MD social history reviewed E&M revi ewed - no changes required Indra Cadet MD social history E&M S moking History: Noreen hernández has never smoked. Indra Cadet MD social history reviewed E&M revi ewed - no changes required Indra Cadet MD smoking status Never smoker Siria fuentes social history E&M S moking History: Noreen hernández has never smoked. Indra Cadet MD smoking status Never smoker Jania Reardon social history reviewed E&M revi ewed - no changes required Jania Fallon number of grandchildren Toniya Cadet MD Mechelle Cadet MD social history E&M S moking History: Noreen hernández has never smoked. Indra Cadet MD social history reviewed E&M revi ewed - no changes required Indra Cadet MD smoking status Never smoker Jania Reardon social history reviewed E&M revi ewed - no changes required Indra Cadet MD social history reviewed E&M revi ewed - no changes required Indra Cadet MD smoking status Never smoker Monica Matthew social history reviewed E&M revi ewed - no changes required Indra Cadet MD smoking status Never smoker Alley Jacinto bloom quit smoking, stage not documented Indra Cadet MD smoking status Current every day smoker Mechelle Cadet MD social history reviewed E&M revi ewed - no changes required Indra Cadet MD FUNCTIONAL STATUS Date Observation Value Provider HRA, CV Assess/Plan, Angina (inactive) Management Plan continue current therapy Tomas Nichols HRA, CV Assess/Plan, Angina (inactive) Management Plan continue current therapy Jorge Ahmedzai HRA, CV Assess/Plan, Angina (inactive) Management Plan continue current therapy Jorge Ahmedzai HRA, CV Assess/Plan, Angina (inactive) Management Plan continue current therapy Jorge Ahmedzai HRA, CV Assess/Plan, Angina (inactive) Management Plan continue current therapy Iron Banegas HRA, CV Assess/Plan, Angina (inactive) Management Plan continue current therapy Jorge Ahmedzai HRA, CV Assess/Plan, Angina (inactive) Management Plan continue current therapy Jorge Ahmedzai HRA, CV Assess/Plan, Angina (inactive) Management Plan continue current therapy Yary Daniels NP HRA, CV Assess/Plan, Angina (inactive) Management Plan continue current therapy Jorge Ahmedzai HRA, CV Assess/Plan, Angina (inactive) Management Plan continue current therapy Jorge Ahmedzai HRA, CV Assess/Plan, Angina (inactive) Management Plan continue current therapy Jorge Ahmedzai HRA, CV Assess/Plan, Angina (inactive) Management Plan continue current therapy Ricarda Castro PICKER FEEDER HRA, CV Assess/Plan, Angina (inactive) Management Plan continue current therapy Yary Dainels [employer] HRA, CV Assess/Plan, Angina (inactive) Management Plan continue current therapy Jorge Ahmedzai HRA, CV Assess/Plan, Angina (inactive) Management Plan continue current therapy Jorge Ahmedzai HRA, CV Assess/Plan, Angina (inactive) Management Plan continue current therapy Indra Cadet MD HRA, CV Assess/Plan, Angina (inactive) Management Plan continue current therapy Indra Cadet MD HRA, CV Assess/Plan, Angina (inactive) Management Plan continue current therapy Indra Cadet MD HRA, CV Assess/Plan, Angina (inactive) Management Plan continue current therapy Indra Cadet MD HRA, CV Assess/Plan, Angina (inactive) Management Plan continue current therapy Indra Cadet MD HRA, CV Assess/Plan, Angina (inactive) Management Plan continue current therapy Indra Cadet MD FAMILY HISTORY Family Member Condition Father Family History Unkno wn Mother Family History of Hy pertension: INSURANCE PROVIDERS Payer name Policy type / Coverage type [place] red green party ID [employer]AGE [address] 0 003 (HMO POS) Medicare [id number] ADVANCE DIRECTIVES Name Date DISCUSSED - NO DECISION MADE TREATMENT PLAN Date Name Performer [id number],W,p t had telesentry: Sinus with frequent ventricular ectopy. VE burden was 24.28% and observed as 28,386 isolated beats (including bigeminy, trigeminy, and quadrigeminy), 1,625 couplets, and 134 triplets. 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 His last holter in October showed % PVC burden. I recommend pt undergo EP study ablation to map and ablate this. Discussed risks and benefits, he was agreeable. His updated medication list for this problem includes: Diltiazem Hcl 90 Mg Tablet (Diltiazem hcl) ..... Take 1 tablet by mouth three times daily Bridget Ramirez MD [id number],C,o n eliquis O rders: 9 9215 HIGH 40-54min (CPT-43489) Bridget Ramirez MD [id number],C,on elimarti Gomez [id number],C,p t had telesentry: Sinus with frequent ventricular ectopy. VE burden was 24.28% and observed as 28,386 isolated beats (including bigeminy, trigeminy, and quadrigeminy), 1,625 couplets, and 134 triplets. Pt underwent routine stress test today which showed he was having frequent unifocal PVCs. 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 His last holter in October showed % PVC burden. I recommend pt undergo EP study ablation to map and ablate this. Discussed risks and benefits, he was agreeable. Jorge Gomez [id number],C,no angina [facility] [id number],C, B P today: 122/82 P rior BP: 106/72 (10/28/2022) Labs Reviewed: C reat: 1.30 (03/19/2022) C hol: 117 (02/02/2022) HDL: 53 (02/02/2022) LDL: 46 MG/DL (CALC) (02/02/2022) T (02/02/2022) Jorge Gomez [id number],C, H is updated medication list for this problem includes: Farxiga 5 Mg Tablet (Dapagliflozin propanediol) ..... Take 1 tablet by mouth once daily Metformin 500 Mg Tablet Extended Release 24 Hr (Metformin) ..... 2 tablet once a day 1000mg daily Jorge Vilaginette [id number],C, B P today: 106/72 P rior BP: 141/71 (04/29/2022) Labs Reviewed: C reat: 1.30 (03/19/2022) C hol: 117 (02/02/2022) HDL: 53 (02/02/2022) LDL: 46 MG/DL (CALC) (02/02/2022) T (02/02/2022) orthostatics checked: sitting 145/80 54, standing 141/70 56 no symptoms Yary Daniels NP [id number],C,n o evidence of AFIB on telesentry Yary Daniels NP [id number],C, pt had telesentry: Sinus with frequent ventricular ectopy. VE burden was 24.28% and observed as 28,386 isolated beats (including bigeminy, trigeminy, and quadrigeminy), 1,625 couplets, and 134 triplets. w ill check modified essie routine stress test in 3 months. will determine need for PVC ablation. Yary Frances WHYTE [id number],C, H is updated medication list for this problem includes: Atorvastatin 40 Mg Tablet (Atorvastatin) ..... Take 1 tablet by mouth once daily Jorge Liamwale [id number],S, Jorge Cadence i [id number],C,S /p cardioversion, is in sinus rhythm. Jorge Cadenceginette [id number],C, H is updated medication list for this problem includes: Metformin 500 Mg Tablet Extended Release 24 Hr (Metformin) ..... 2 tablet once a day 1000mg daily Farxiga 5 Mg Tablet (Dapagliflozin) ..... Take 1 tablet by mouth once a day Jorge Liamwale [id number],C,No chest pain Jorge Wheelerzai [id number],C, B P today: 141/71 P rior BP: 152/77 (04/13/2022) Labs Reviewed: C reat: 1.30 (03/19/2022) C hol: 117 (02/02/2022) HDL: 53 (02/02/2022) LDL: 46 MG/DL (CALC) (02/02/2022) T (02/02/2022) Jorge Ahmedzai [id number],S, Jorge Ahmedza i [id number],S, Jorge Ahmedza i [id number],S, Jorge Ahmedza i [id number],S, Jorge Ahmedza i [id number],S, Jorge Ahmedza i [id number],S, Jorge Ahmedza i [id number],S, Jorge Ahmedza i [id number],C, H is updated medication list for this problem includes: Diltiazem Hcl 90 Mg Tablet (Diltiazem hcl) ..... Take 1 tablet by mouth three times a day Amiodarone 200 Mg Tablet (Amiodarone) ..... Take 1 tablet by mouth once a day Bridget Ramirez MD [id number],C, O rders: 9214 HIGH 40-54min (CPT-10909) C ardioversion - GC (CPT-64977) P ROTHROMBIN TIME WITH INR (8847) B ASIC METABOLIC PANEL W/EGFR (27903) M AGNESIUM (622) Bridget Ramirez MD [id number],C,E cho ef 55% , mod MR from September O rders: 9214 HIGH 40-54min (CPT-03727) C ardioversion - GC (CPT-63331) P ROTHROMBIN TIME WITH INR (8847) B ASIC METABOLIC PANEL W/EGFR (80184) M AGNESIUM (622) Jorge Gomez [id number],C, H is updated medication list for this problem includes: Metformin 500 Mg Tablet Extended Release 24 Hr (Metformin) ..... 2 tablet once a day 1000mg daily Farxiga 5 Mg Tablet (Dapagliflozin) ..... Take 1 tablet by mouth once a day Orders: 9 9215 HIGH 40-54min (CPT-32427) C ardioversion - GC (CPT-34986) P ROTHROMBIN TIME WITH INR (8847) B ASIC METABOLIC PANEL W/EGFR (74643) M AGNESIUM (622) Jorge Gomez [id number],S,N o angina H is updated medication list for this problem includes: Diltiazem Hcl 90 Mg Tablet (Diltiazem hcl) ..... Take 1 tablet by mouth three times a day Jorge Gomez [id number],W,H is EKG today shows he is back in AFIB. I will have him undergo Cardioversion in efforts to convert to sinus rhythm. I reviewed the medication list with the patient. I will have him decrease his Amiodarone to once daily and then stop the medication once he is done with the refill. Will start him on Dilitiazem 90 mg TID, increase his Magnesium 400 mg to two tablets BID. O rders: 9 9215 HIGH 40-54min (CPT-20834) C ardioversion - GC (CPT-50023) P ROTHROMBIN TIME WITH INR (8847) B ASIC METABOLIC PANEL W/EGFR (87693) M AGNESIUM (622) Jorge Vila [id number],C, T he following medications were removed from the medication list: Lisinopril 10 Mg Tablet (Lisinopril) ..... Take 1 tablet by mouth once daily Metoprolol Succinate 100 Mg Tablet Extended Release 24 Hr (Metoprolol succinate) ..... Take 1/2 tablet by mouth once a day Bridget Ramirez MD [id number],C, T he following medications were removed from the medication list: Lisinopril 10 Mg Tablet (Lisinopril) ..... Take 1 tablet by mouth once daily His updated medication list for this problem includes: Metformin 500 Mg Tablet Extended Release 24 Hr (Metformin) ..... 2 tablet once a day 1000mg daily Farxiga 5 Mg Tablet (Dapagliflozin) ..... Take 1 tablet by mouth once a day Bridget Ramirez MD [id number],C, Bridget orona MD [id number],B,s /p ablation. holding BB at this time and on amio post ablation. Will plan to stop amio at f/u visit. Will remain on eliquis at this time T he following medications were removed from the medication list: Metoprolol Succinate 100 Mg Tablet Extended Release 24 Hr (Metoprolol succinate) ..... Take 1/2 tablet by mouth once a day His updated medication list for this problem includes: Amiodarone 200 Mg Tablet (Amiodarone) Ricarda Castro [facility] [id number],B,P atient blood pressure is on the low side. He has no signs of volume overload we will have him hold his lasix and lisinopril at this time. Will f/u in one month or sooner if needed. Goal BP <130/80 T he following medications were removed from the medication list: Furosemide 20 Mg Tablet (Furosemide) ..... Take 1 tablet by mouth once a day Lisinopril 10 Mg Tablet (Lisinopril) ..... Take 1 tablet by mouth once daily Metoprolol Succinate 100 Mg Tablet Extended Release 24 Hr (Metoprolol succinate) ..... Take 1/2 tablet by mouth once a day Ricarda Salmeronsanjeevnikko [facility] [id number],B,H e is s/p ablation and is feeling overall very well. He remains on amiodarone at this time and off BB. We will f/u in one month. He may return to work this time. T he following medications were removed from the medication list: Lisinopril 10 Mg Tablet (Lisinopril) ..... Take 1 tablet by mouth once daily Metoprolol Succinate 100 Mg Tablet Extended Release 24 Hr (Metoprolol succinate) ..... Take 1/2 tablet by mouth once a day His updated medication list for this problem includes: Amiodarone 200 Mg Tablet (Amiodarone) Ricarda Castro [facility] [id number],C, B P today: 118/63 P rior BP: 100/65 (10/07/2021) His updated medication list for this problem includes: Furosemide 20 Mg Tablet (Furosemide) ..... Take 1 tablet by mouth once a day Metoprolol Succinate 100 Mg Tablet Extended Release 24 Hr (Metoprolol succinate) ..... Take 1/2 tablet by mouth once a day Lisinopril 10 Mg Tablet (Lisinopril) ..... Take 1 tablet by mouth once daily Yary Daniels NP [id number],Cc danis pryor. gabe pryor of surgery. The following medications were removed from the medication list: Clopidogrel 75 Mg Tablet (Clopidogrel) ..... Take 1 tablet by mouth once a day His updated medication list for this problem includes: Metoprolol Succinate 100 Mg Tablet Extended Release 24 Hr (Metoprolol succinate) ..... Take 1/2 tablet by mouth once a day Yary Daniels NP [id number],C,s ymptomatic PVCs, PVC's 23%.will plan for PVC ablation. will arrange for preablation CT (last CR 06.06) and preprocedure labs. e xplained procedure, including risks and benefits. pt in agreement to proceed. Yary Daniels NP [id number],SJorge i [id number],SJorge i [id number],SJorge i [id number],SJorge i [id number],S, Jorge Vila i [id number],S, Jorge Vila i [id number],B, Indra Cadet MD [id number],B, Indra Cadet MD [id number],B, Indra Cadet MD [id number],B, Indra Cadet MD [id number],B, Indra Cadet MD [id number],S, Indra Cadet MD [id number],S, Indra Cadet MD [id number],S, Indra Cadet MD [id number],S, Indra Cadet MD [id number],S, Indra Cadet MD [id number],S, Indra Cadet MD [id number],B, Indra Cadet MD [id number],B, Indra Cadet MD [id number],S, Indra Cadet MD Cardiology Tomas Nichols Cardiology Tomas Nichols Cardiology Tomas Nichols Cardiology:This visi t has been a part of the consistent, comprehensive, and ongoing management of the chronic medical condition(s) listed above for the patient. Tomas Nichols Cardiology Tomas Nichols Cardiology:This visi t has been a part of the consistent, comprehensive, and ongoing management of the chronic medical condition(s) listed above for the patient. Tomas Nichols Cardiology: O rders: C omplete Echo (67002) T his visit has been a part of the consistent, comprehensive, and ongoing management of the chronic medical condition(s) listed above for the patient. Indra Cadet MD Cardiology: T he following medications were removed from the medication list: Amiodarone 200 Mg Tablet (Amiodarone) ..... 1 tablet by mouth once a day Orders: C arotid Duplex Bilateral (CPT-44682) [facility] Cardiology: O rders: C arotid Duplex Bilateral (CPT-44780) [facility] Cardiology: H is updated medication list for this problem includes: Atorvastatin 40 Mg Tablet (Atorvastatin) ..... Take 1 tablet by mouth once a day [facility] Cardiology: T he following medications were removed from the medication list: Amiodarone 200 Mg Tablet (Amiodarone) ..... 1 tablet by mouth once a day Orders: Dalton omplete Echo (48214) [facility] Cardiology: T he following medications were removed from the medication list: Amiodarone 200 Mg Tablet (Amiodarone) ..... 1 tablet by mouth once a day [facility] Cardiology: O rders: C omplete Echo (85550) [facility] Cardiology: O rders: C omplete Echo (61686) [facility] Electrophysiology:recieves radia tion treatment [facility] Electrophysiology:De nies CP or SOB. [facility] Electrophysiology:PV C ablation 03/2023 with PVI, afib was not terminated and underwent CV which was successful in converting him to sinus. Will continue Amiodarone for now. His updated medication list for this problem includes: Amiodarone 200 Mg Tablet (Amiodarone) ..... 1 tablet by mouth once a day [facility] Electrophysiology:co ntinues to have pvcs, on Amiodarone 200 mg once daily, will continue this for now, check labs H is updated medication list for this problem includes: Amiodarone 200 Mg Tablet (Amiodarone) ..... 1 tablet by mouth once a day Jorge jenniwale Electrophysiology:At tributable to orthostasis as he is symptomatic in office, will start Fludrocortisone in addition to his Midodrine. Will check labs O rders: 9 9214 MOD 30-39min (CPT-95243) Complex e/m visit add on (G2211) C OMPREHENSIVE METABOLIC PANEL, W/EGFR (72405) P ROBNP, N TERMINAL (23108) C BC (INCLUDES DIFF/PLT) (6399) L IPID PANEL (2690) T SH, free T4, total T3 (7444) M AGNESIUM (622) [facility]: H is updated medication list for this problem includes: Farxiga 5 Mg Tablet (Dapagliflozin propanediol) ..... Take 1 tablet by mouth once daily Metformin 500 Mg Tablet Extended Release 24 Hr (Metformin) ..... 2 tablet once a day 1000mg daily [facility] Electrophysiology: B P today: 106/70 P rior BP: 109/63 (01/18/2024) Labs Reviewed: C reat: 1.30 (03/19/2022) C hol: 117 (02/02/2022) HDL: 53 (02/02/2022) LDL: 46 MG/DL (CALC) (02/02/2022) T (02/02/2022) [facility] Cardiology:This visi t has been a part of the consistent, comprehensive, and ongoing management of the chronic medical condition(s) listed above for the patient. His updated medication list for this problem includes: Amiodarone 200 Mg Tablet (Amiodarone) ..... 1 tablet by mouth once a day [facility]: H is updated medication list for this problem includes: Amiodarone 200 Mg Tablet (Amiodarone) ..... 1 tablet by mouth once a day [facility]: H is updated medication list for this problem includes: Atorvastatin 40 Mg Tablet (Atorvastatin) ..... Take 1 tablet by mouth once daily Jorge Liamzai Cardiology Jorge Dorothymedzai Cardiology Jorge Dorothymedzai Electrophysiology wound check Sa josé Ramirez MD Electrophysiology Jorgeamrita Wheelerzaginette Electrophysiology Jorge Dorothymedzaginette Electrophysiology [facility]:wi ll send in Midodrine 10 mg TID and see if his sxs improve, will order left shoulder x ray as well given his pain and recent fall [facility]: B P today: 124/86 P rior BP: 132/70 (04/28/2023) Labs Reviewed: C reat: 1.30 (03/19/2022) C hol: 117 (02/02/2022) HDL: 53 (02/02/2022) LDL: 46 MG/DL (CALC) (02/02/2022) T (02/02/2022) The following medications were removed from the medication list: Diltiazem Hcl 90 Mg Tablet (Diltiazem hcl) ..... Take 1 tablet by mouth three times daily Iron Makenzie Electrophysiology:will stop eliq uis Iron Makenzie Electrophysiology:on eliquis Anibal Borgesinari Electrophysiology Iron Bhavin i Electrophysiology:Mu ltiple episodes of syncope in past month with associated bradycardia will need to schedule pacemaker implant he is off diltiazem Iron Makenzie Electrophysiology:no janelle on ILR h e is off diltiazem Iron Makenzie Electrophysiology:st ill has on and off dizzy episodes, will clinically monitor Ojrgeamrita Gomez Electrophysiology:s/ p EP study, PVC / Afib ablation, pulmonary vein isolation 03/2023 Jorge Gomez Electrophysiology:s/ p PVC ablation with significant supression Jorge Gomez Electrophysiology:denies angina Jorge Patricia Electrophysiology: His updated medication list for this problem includes: Farxiga 5 Mg Tablet (Dapagliflozin propanediol) ..... Take 1 tablet by mouth once daily Metformin 500 Mg Tablet Extended Release 24 Hr (Metformin) ..... 2 tablet once a day 1000mg daily Jorge De La Cruzkathy Electrophysiology: B P today: 132/70 P rior BP: 122/82 (01/27/2023) Labs Reviewed: C reat: 1.30 (03/19/2022) C hol: 117 (02/02/2022) HDL: 53 (02/02/2022) LDL: 46 MG/DL (CALC) (02/02/2022) T (02/02/2022) Jorge Gomez Telehealth Bridget hall MD Telehealth: H is updated medication list for this problem includes: Diltiazem Hcl 90 Mg Tablet (Diltiazem hcl) ..... Take 1 tablet by mouth three times daily Birdget Ramirez MD Telehealth: O rders: Noreen ledbetter 11-20 (CPT-82859) Bridget Ramirez MD Telehealth: H is updated medication list for this problem includes: Diltiazem Hcl 90 Mg Tablet (Diltiazem hcl) ..... Take 1 tablet by mouth three times daily Orders: P anatoly 11-20 (CPT-06099) Bridget Ramirez MD Electrophysiology:pt had telesentry: Sinus with frequent ventricular ectopy. VE burden was 24.28% and observed as 28,386 isolated beats (including bigeminy, trigeminy, and quadrigeminy), 1,625 couplets, and 134 triplets. 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 His last holter in October showed % PVC burden. I recommend pt undergo EP study ablation to map and ablate this. Discussed risks and benefits, he was agreeable. His updated medication list for this problem includes: Diltiazem Hcl 90 Mg Tablet (Diltiazem hcl) ..... Take 1 tablet by mouth three times daily Bridget Ramirez MD Electrophysiology:on eliquis O rders: 9 9215 HIGH 40-54min (CPT-33022) Bridget Ramirez MD Electrophysiology:on eliquis Pily Gomez Electrophysiology:pt had telesentry: Sinus with frequent ventricular ectopy. VE burden was 24.28% and observed as 28,386 isolated beats (including bigeminy, trigeminy, and quadrigeminy), 1,625 couplets, and 134 triplets. Pt underwent routine stress test today which showed he was having frequent unifocal PVCs. 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 His last holter in October showed % PVC burden. I recommend pt undergo EP study ablation to map and ablate this. Discussed risks and benefits, he was agreeable. Jorge Gomez Electrophysiology:no angina Jorge Gomez Electrophysiology: B P today: 122/82 P rior BP: 106/72 (10/28/2022) Labs Reviewed: C reat: 1.30 (03/19/2022) C hol: 117 (02/02/2022) HDL: 53 (02/02/2022) LDL: 46 MG/DL (CALC) (02/02/2022) T (02/02/2022) Jorge Gomez Electrophysiology: H is updated medication list for this problem includes: Farxiga 5 Mg Tablet (Dapagliflozin propanediol) ..... Take 1 tablet by mouth once daily Metformin 500 Mg Tablet Extended Release 24 Hr (Metformin) ..... 2 tablet once a day 1000mg daily Jorge Gomez Electrophysiology: B P today: 106/72 P rior BP: 141/71 (04/29/2022) Labs Reviewed: C reat: 1.30 (03/19/2022) C hol: 117 (02/02/2022) HDL: 53 (02/02/2022) LDL: 46 MG/DL (CALC) (02/02/2022) T (02/02/2022) orthostatics checked: sitting 145/80 54, standing 141/70 56 no symptoms Yary Amayadimitri [facility] Electrophysiology:no evidence of AFIB on telesentry Yary Santobacilio [facility]YTE Electrophysiology: p t had telesentry: Sinus with frequent ventricular ectopy. VE burden was 24.28% and observed as 28,386 isolated beats (including bigeminy, trigeminy, and quadrigeminy), 1,625 couplets, and 134 triplets. w ill check modified essie routine stress test in 3 months. will determine need for PVC ablation. Yary Amayadimitri [facility] Electrophysiology: H is updated medication list for this problem includes: Atorvastatin 40 Mg Tablet (Atorvastatin) ..... Take 1 tablet by mouth once daily [facility] Electrophysiology [facility] Electrophysiology:S/ p cardioversion, is in sinus rhythm. [facility] Electrophysiology: H is updated medication list for this problem includes: Metformin 500 Mg Tablet Extended Release 24 Hr (Metformin) ..... 2 tablet once a day 1000mg daily Farxiga 5 Mg Tablet (Dapagliflozin) ..... Take 1 tablet by mouth once a day [facility] Electrophysiology:No chest pain [facility] Electrophysiology: B P today: 141/71 P rior BP: 152/77 (04/13/2022) Labs Reviewed: C reat: 1.30 (03/19/2022) C hol: 117 (02/02/2022) HDL: 53 (02/02/2022) LDL: 46 MG/DL (CALC) (02/02/2022) T (02/02/2022) Jorgeamrita Gomez Cardiology [facility] Patricia Cardiology [facility] Patricia [facility] Jorge Patricia Cardiology Jorge kathy Cardiology [facility] Jorge Gomez Electrophysiology: H is updated medication list for this problem includes: Diltiazem Hcl 90 Mg Tablet (Diltiazem hcl) ..... Take 1 tablet by mouth three times a day Amiodarone 200 Mg Tablet (Amiodarone) ..... Take 1 tablet by mouth once a day Bridget Ramirez MD Electrophysiology: O rders: 9 9215 HIGH 40-54min (CPT-92521) C ardioversion - GC (CPT-33327) P ROTHROMBIN TIME WITH INR (8847) B ASIC METABOLIC PANEL W/EGFR (83412) M AGNESIUM (622) Bridget Ramirez MD Electrophysiology:Ec ho ef 55% , mod MR from September O rders: 9 9215 HIGH 40-54min (CPT-66201) C ardioversion - GC (CPT-59600) P ROTHROMBIN TIME WITH INR (8847) B ASIC METABOLIC PANEL W/EGFR (81346) M AGNESIUM (622) Bridget Ramirez MD Electrophysiology: H is updated medication list for this problem includes: Metformin 500 Mg Tablet Extended Release 24 Hr (Metformin) ..... 2 tablet once a day 1000mg daily Farxiga 5 Mg Tablet (Dapagliflozin) ..... Take 1 tablet by mouth once a day Orders: 9 9215 HIGH 40-54min (CPT-92942) C ardioversion - GC (CPT-10636) P ROTHROMBIN TIME WITH INR (8847) B ASIC METABOLIC PANEL W/EGFR (08070) M AGNESIUM (622) Bridget Ramirez MD Electrophysiology:No angina H is updated medication list for this problem includes: Diltiazem Hcl 90 Mg Tablet (Diltiazem hcl) ..... Take 1 tablet by mouth three times a day Bridget Ramirez MD Electrophysiology:Hi s EKG today shows he is back in AFIB. I will have him undergo Cardioversion in efforts to convert to sinus rhythm. I reviewed the medication list with the patient. I will have him decrease his Amiodarone to once daily and then stop the medication once he is done with the refill. Will start him on Dilitiazem 90 mg TID, increase his Magnesium 400 mg to two tablets BID. O rders: 9 9215 HIGH 40-54min (CPT-19489) C ardioversion - GC (CPT-81920) P ROTHROMBIN TIME WITH INR (8847) B ASIC METABOLIC PANEL W/EGFR (97677) M AGNESIUM (622) Bridget Ramirez MD Electrophysiology: T he following medications were removed from the medication list: Lisinopril 10 Mg Tablet (Lisinopril) ..... Take 1 tablet by mouth once daily Metoprolol Succinate 100 Mg Tablet Extended Release 24 Hr (Metoprolol succinate) ..... Take 1/2 tablet by mouth once a day Bridget Ramirez MD Electrophysiology: T he following medications were removed from the medication list: Lisinopril 10 Mg Tablet (Lisinopril) ..... Take 1 tablet by mouth once daily His updated medication list for this problem includes: Metformin 500 Mg Tablet Extended Release 24 Hr (Metformin) ..... 2 tablet once a day 1000mg daily Farxiga 5 Mg Tablet (Dapagliflozin) ..... Take 1 tablet by mouth once a day Bridget Ramirez MD Electrophysiology Bridget govea MD Electrophysiology:s/ p ablation. holding BB at this time and on amio post ablation. Will plan to stop amio at f/u visit. Will remain on eliquis at this time T he following medications were removed from the medication list: Metoprolol Succinate 100 Mg Tablet Extended Release 24 Hr (Metoprolol succinate) ..... Take 1/2 tablet by mouth once a day His updated medication list for this problem includes: Amiodarone 200 Mg Tablet (Amiodarone) Ricarda SPENCERP Electrophysiology:Laura browne blood pressure is on the low side. He has no signs of volume overload we will have him hold his lasix and lisinopril at this time. Will f/u in one month or sooner if needed. Goal BP <130/80 T he following medications were removed from the medication list: Furosemide 20 Mg Tablet (Furosemide) ..... Take 1 tablet by mouth once a day Lisinopril 10 Mg Tablet (Lisinopril) ..... Take 1 tablet by mouth once daily Metoprolol Succinate 100 Mg Tablet Extended Release 24 Hr (Metoprolol succinate) ..... Take 1/2 tablet by mouth once a day Ricarda Castro [facility] Electrophysiology:He is s/p ablation and is feeling overall very well. He remains on amiodarone at this time and off BB. We will f/u in one month. He may return to work this time. T he following medications were removed from the medication list: Lisinopril 10 Mg Tablet (Lisinopril) ..... Take 1 tablet by mouth once daily Metoprolol Succinate 100 Mg Tablet Extended Release 24 Hr (Metoprolol succinate) ..... Take 1/2 tablet by mouth once a day His updated medication list for this problem includes: Amiodarone 200 Mg Tablet (Amiodarone) Ricarda Castro [facility] Cardiology: B P today: 118/63 P rior BP: 100/65 (10/07/2021) His updated medication list for this problem includes: Furosemide 20 Mg Tablet (Furosemide) ..... Take 1 tablet by mouth once a day Metoprolol Succinate 100 Mg Tablet Extended Release 24 Hr (Metoprolol succinate) ..... Take 1/2 tablet by mouth once a day Lisinopril 10 Mg Tablet (Lisinopril) ..... Take 1 tablet by mouth once daily Yary Daniels NP Cardiology:continue eliquis. hold eliquis am of surgery. The following medications were removed from the medication list: Clopidogrel 75 Mg Tablet (Clopidogrel) ..... Take 1 tablet by mouth once a day His updated medication list for this problem includes: Metoprolol Succinate 100 Mg Tablet Extended Release 24 Hr (Metoprolol succinate) ..... 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 will arrange for preablation CT (last CR 1.04/2021) and preprocedure labs. e xplained procedure, including risks and benefits. pt in agreement to proceed. Yary Daniels [employer] Telehealth Jorge Ahmedzai Telehealth Jorge Ahmedzai Telehealth Jorge Ahmedzai Telehealth Jorge Ahmedzai Telehealth Jorge Ahmedzai Telehealth Jorge medzai Cardiology Indra Cadet MD Cardiology Indra Cadet MD Cardiology Indra Cadet MD Cardiology Indra Cadet MD Cardiology Indra Cadet MD Cardiology Indra Cadet MD Cardiology Indra Cadet MD Cardiology Indra Cadet MD Cardiology Indra Cadet MD Cardiology Indra Cadet MD Cardiology Indra Cadet MD Cardiology Indra Cadet MD Cardiology Indra Cadet MD Cardiology Indra Cadet MD Cardiology Indra Cadet MD Cardiology Indra Cadet MD Cardiology Indra Cadet MD Cardiology Indra Cadet MD Cardiology Indra Cadet MD Cardiology Indra Cadet MD Cardiology Indra Cadet MD Cardiology Indra Cadet MD Cardiology Indra Cadet MD Cardiology Indra Cadet MD Cardiology Indra Cadet MD Cardiology Indra Cadet MD Cardiology Indra Cadet MD Cardiology Indra Cadet MD Cardiology Indra Cadet MD Cardiology Indra Cadet MD Cardiology Indra Cadet MD Cardiology Indra Cadet MD Cardiology Indra Cadet MD Cardiology Indra Cadet MD Cardiology Indra Cadet MD Cardiology Indra Cadet MD Cardiology:Patient c an proceed with back surgery in May Indra Cadet MD Cardiology Hospital Follow up To des Cadet MD Cardiology Hospital Follow up To des Cadet MD Cardiology Hospital Follow up To des Cadet MD Cardiology Hospital Follow up To des Cadet MD Cardiology Hospital Follow up T tere Cadet MD Cardiology Indra Cadet MD Cardiology Indra Cadet MD Cardiology Indra Cadet MD Cardiology Indra Cadet MD Date Name Complete Echo Carotid Duplex Bilat eral Complete Echo MAGNESIUM TSH, free T4, total T3 LIPID PANEL CBC (INCLUDES DIFF/P LT) PROBNP, N TERMINAL COMPREHENSIVE METABO LIC PANEL, W/EGFR X-Ray, Shoulder URINALYSIS, COMPLETE W/REFLEX TO CULTURE COMPREHENSIVE METABO LIC PANEL, W/EGFR CBC (INCLUDES DIFF/P LT) Partial Thromboplast in Time, Activated PROTHROMBIN TIME WIT H INR CBC (INCLUDES DIFF/P LT) BASIC METABOLIC PANE L W/EGFR PROTHROMBIN TIME WIT H INR Partial Thromboplast in Time, Activated ABLATION w/ Anesthes ia EP Study Stress Routine EKG Monitor - Telemetry (Mobile Cardiac) MAGNESIUM BASIC METABOLIC PANE L W/EGFR PROTHROMBIN TIME WIT H INR Cardioversion - GC COMPREHENSIVE METABO LIC PANEL, W/EGFR Creatinine, Serum PROTHROMBIN TIME WIT H INR LIPID PANEL CBC (INCLUDES DIFF/P LT) BASIC METABOLIC PANE L W/EGFR CT Cardiac with cont rast (Pre-Ablation) ABLATION w/ Anesthes ia Complete Echo Complete Echo Phone 11-20 HISTORY OF PROCEDURES Procedure Date Procedure Name Provider Procedure Notes S tatus Complex e/m visit add on Indra Cadet MD completed Complex e/m visit add on Indra Cadet MD completed Complex e/m visit add on Bridget Ramirez MD completed EKG Bridget hall MD completed Complex e/m visit add on Indra Cadet MD completed EKG Bridget hall MD completed EKG Bridget hall MD completed EKG Bridget hall MD completed EKG Indra Cadet MD completed EKG Indra Cadet MD completed EKG Indra Cadet MD completed SNOMED-CT: 640134511161457 Current Medications Documented Indra Cadet MD completed SNOMED-CT: 78799985 Physical Exam, Performed: Pulse Exam of Foot Indra Cadet MD completed SNOMED-CT: 292256876467785 Current Medications Documented Indra Cadet MD completed SNOMED-CT: 50510534 Physical Exam, Performed: Pulse Exam of Foot Indra Cadet MD completed ZIO Holter Hookup Indra Cadet MD co mpleted EKG Indra Cadet MD completed SNOMED-CT: 203221537507319 Current Medications Documented Indra Cadet MD completed
[2024-06-10] MEDS: EPINEPHrine HCL INJ 1 MG/ML AMPUL 0.3 MG IM (16:59)
[2024-06-10] MEDS: FAMOTIDINE 20 MG/2 ML VIAL IV PUSH (17:00)
[2024-06-10] MEDS: methylPREDNISolone SOD SUCC 125 MG VIAL IV PUSH (17:00)
--- NOTE | 2024-06-10 17:03 | PC.NURSE ---
Patient states breathing has gotten easier after epi and medications. Patient continues to have wheezing, but lungs sound a little better
[2024-06-10 17:06] LABS: Basophils Percent Auto 0.4 % (0.2-1.2); Eosinophils Absolute Auto 0.1 K/mm3 (0-0.3); Eosinophils Percent Auto 2.4 % (0-4.4); Hematocrit 36.4 % (42.0-52.0); Hemoglobin 12.1 g/dL (14.0-18.0); Immature Granulocyte Absolute 0.02 K/mm3 (0.00-0.031); Immature Granulocyte Percent A 0.4 % (0-0.5); Lymphocytes Absolute Auto 0.92 K/mm3 (0.9-3.2); Lymphocytes Percent Auto 16.7 % (18.3-44.2); Mean Corpuscular HGB Conc 33.2 g/dl (32-36); Mean Corpuscular Hemoglobin 32.2 pg (26-34); Mean Corpuscular Volume 96.8 fl (80-100); Mean Platelet Volume 10.8 fl (7.4-10.4); Monocytes Absolute Auto 0.6 K/mm3 (0.1-0.6); Monocytes Percent Auto 10.2 % (2.6-8.5); Neutrophils Absolute Auto 3.9 K/mm3 (1.3-6.7); Neutrophils Percent Auto 69.9 % (45.5-73.1); Platelet Count Result 194 k/mm3 (150-375); Red Blood Count 3.76 M/mm3 (4.6-6.20); Red Cell Distribution Width 12.7 % (11.5-14.5); White Blood Count 5.5 K/mm3 (4.5-10.0)
[2024-06-10] MEDS: IPRATROPIUM 0.5 MG/ALBUTEROL SULFATE 2.5 MG AMPUL.NEB 3 ML INHALATION (17:22)
--- NOTE | 2024-06-10 17:22 | PC.NURSE ---
Respiratory at bedside
--- NOTE | 2024-06-10 17:28 | PC.NURSE ---
Swelling in patient's cheeks have gone down. Patient denies throat or tongue swelling at this time.
--- NOTE | 2024-06-10 17:34 | ECG_ITS ---
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
[2024-06-10] MEDS: PROMETHAZINE HCL 25 MG/ML AMPUL 12.5 MG IV PUSH (17:44)
[2024-06-10] MEDS: SODIUM CHLORIDE 0.9% IV 50 ML (17:47)
--- NOTE | 2024-06-10 17:50 | ED_ITS ---
HPI - Arrhythmia/Palpitations General Chief Complaint: Arrhythmia/Palpitations <Karri Woodson MD - Last Filed: 06/10/24 19:17> Stated Complaint: facial swelling, breathing difficulty <Karri Woodson MD - Last Filed: 06/10/24 19:17> Time Seen by Provider: 06/10/24 16:42 <Karri Woodson MD - Last Filed: 06/10/24 19:17> History of Present Illness HPI narrative: Patient is an 83-year-old male who presents ER with concerns for allergic reaction. He is at his doctor's office today and they report that his face was markedly swollen from baseline and also red. He reports this began around 1:00 a.m. in the afternoon. According to daughter he has had some hoarseness of his voice with shortness of breath and cough over last 3 days. The swelling is in fact new. He has no rash. Denies history of previous allergic reaction. He has recently been on azithromycin. He also takes lisinopril. Patient family thinks his voice is more raspy but it has been that way for several days. < Karri Woodson MD - Last Filed: 06/10/24 19:17> Related Data Home Medications: Home Medications ?Medication ?Instructions ?Recorded ?Confirmed ?Last Taken ?Type aspirin 81 mg tablet,delayed 81 mg PO DAILY 07/13/19 11/17/20 07/12/19 History release (Adult Low Dose Aspirin) atorvastatin 40 mg tablet 40 mg PO DAILY 07/13/19 11/17/20 07/12/19 History esomeprazole magnesium 20 mg 20 mg PO DAILY 07/13/19 07/13/19 07/12/19 History capsule,delayed release (Nexium) gabapentin 300 mg capsule 300 mg PO HS 07/13/19 07/13/19 07/11/19 History metformin 500 mg tablet 1,000 mg PO BID 07/13/19 11/17/20 07/12/19 History tamsulosin 0.4 mg capsule 0.4 mg PO QHS 11/17/20 11/17/20 Unknown History <Karri Woodson MD - Last Filed: 06/10/24 19:17> Allergies/Adverse Reactions: Allergies Allergy/AdvReac Type Severity Reaction Status Date / Time azithromycin Allergy Severe Anaphylaxis Verified 06/11/24 00:56 lisinopril Allergy Unknown Angioedema Verified 06/11/24 00:56 <Karri Woodson MD - Last Filed: 06/10/24 19:17> Review of Systems 2 Review of Systems: All systems reviewed & are unremarkable except as noted in HPI and below <Karri Woodson MD - Last Filed: 06/10/24 19:17> Constitutional: Constitutional: Reports no additional constitutional complaints <Karri Woodson MD - Last Filed: 06/10/24 19:17> ENT: Reports system reviewed and no additional complaints, except as documented <Karri Woodson MD - Last Filed: 06/10/24 19:17> Cardiovascular: Cardiovascular: Reports no additional cardiovascular complaints <Karri Woodson MD - Last Filed: 06/10/24 19:17> Respiratory: Respiratory: Reports no additional respiratory complaints < Karri Woodson MD - Last Filed: 06/10/24 19:17> Gastrointestinal: Gastrointestinal: Reports no additional gastrointestinal complaints <Karri Woodson MD - Last Filed: 06/10/24 19:17> [facility] Past Medical History Medical History: Medical History (Updated 06/11/24 @ 00:56 by Marin Shah MD) Hepatitis Type 2 diabetes mellitus Back injury GERD (gastroesophageal reflux disease) Irregular heartbeat <Karri Woodson MD - Last Filed: 06/10/24 19:17> Surgical History Surgical History: Surgical History H/O Spinal surgery Hx of appendectomy <Karri Woodson MD - Last Filed: 06/10/24 19:17> Family History Family History: Family History Mother Cancer Other Diabetes mellitus <Karri Woodson MD - Last Filed: 06/10/24 19:17> Social History Social History: Social History Smoking status: Never smoker Alcohol intake: current Drinks per week: 6 Substance use: never Gender identity (if verbalized by the patient): Male Spiritual care concerns: No Agree to blood products: Yes <Karri Woodson MD - Last Filed: 06/10/24 19:17> Exam 2 Narrative: GENERAL: Well-appearing, well-nourished, and in no acute distress. HEAD: Normocephalic, atraumatic. EYES: PERRL and EOMI. ENT: Mucous membranes moist. Edema of the cheeks bilaterally, chronic scar left cheek. Tongue normal size. Posterior oropharynx visualized and normal in appearance as well. NECK: Supple. CHEST: Coarse wheezing bilaterally with expiration. No respiratory distress. HEART: Regular rate and rhythm. Normal peripheral pulses. ABDOMEN: Soft, nontender, nondistended. EXTREMITIES: Normal range of motion. No edema. SKIN: Warm, dry, no rash. NEURO: Alert and oriented x3. PSYCH: Normal mood and affect. <Karri Woodson MD - Last Filed: 06/10/24 19:17> Course Course Emergency Course: 175: Discussed treatment for anaphylaxis at length with the patient including risks of epinephrine in patient with cardiac disease as it may act as a stressor. Unfortunately given facial swelling and wheezing is felt necessary to give the medicine and he understands. Wheezing resolved after epinephrine. Patient has also received Solu-Medrol 125 mg and famotidine 20 mg from us, but also received Benadryl 50 mg from EMS. Swelling of the cheeks is improving. He thinks his speech is also improving. No redness the face. He is having some epigastric discomfort. Repeat EKG shows no ST changes from original EKG. He does have PVCs. Heavy given medicine for nausea. Patient does have difficulty verbalizing what he is feeling. 1916: Care transferred to Dr. Shah. Trop +, CTA pending. Will need admit. <Karri Woodson MD - Last Filed: 06/10/24 19:17> 1752: Discussed treatment for anaphylaxis at length with the patient including risks of epinephrine in patient with cardiac disease as it may act as a stressor. Unfortunately given facial swelling and wheezing is felt necessary to give the medicine and he understands. Wheezing resolved after epinephrine. Patient has also received Solu-Medrol 125 mg and famotidine 20 mg from us, but also received Benadryl 50 mg from EMS. Swelling of the cheeks is improving. He thinks his speech is also improving. No redness the face. He is having some epigastric discomfort. Repeat EKG shows no ST changes from original EKG. He does have PVCs. Heavy given medicine for nausea. Patient does have difficulty verbalizing what he is feeling. 191: Care transferred to Dr. Shah. Trop +, CTA pending. Will need admit. 193: Patient care resume from prior provider, reviewed patient's imaging studies and examination findings. Patient is evaluated bedside, facial swelling has markedly decreased according to the patient and family at bedside, no anterior lip swelling, no tongue swelling, able to swallow without difficulty. No longer wheezing, felt significantly improved and clinically asymptomatic at this time. Last dose epinephrine was several hours ago. Remains hemodynamically stable. At this time he does have a positive troponin but the CT angiography scan shows no acute arterial or angiographic findings of injury. There is some fluid overload type findings on his chest x-ray with cardiomegaly and bilateral pleural effusions on CT scan. Family states that he has also had 20 lb weight gain over last few weeks. This could be contributing to his shortness of breath that he initially had after the anaphylaxis/angioedema episode. Patient is currently asymptomatic and require admission to the hospital for serial troponins, echocardiogram and Cardiology evaluation. I spoke to the hospitalist Dr. Weber and we went over patient's imaging studies, clinical exam and plan of care and she accepted the patient to the IMU for observation. Echo ordered, Cardiology was consulted, serial troponins and EKG ordered. Patient and family were updated and agreeable to the plan of care. < Marin Shah MD - Last Filed: 06/11/24 00:57> Vital Signs Vital signs: Vital Signs Temperature 36.4 C 06/10/24 17:04 Pulse Rate 94 06/10/24 17:04 Respiratory Rate 20 06/10/24 17:04 Blood Pressure 159/93 H 06/10/24 17:04 Pulse Oximetry 98 06/10/24 17:04 Temperature 36.4 C 06/10/24 17:04 Pulse Rate 83 06/11/24 00:01 Respiratory Rate 17 06/11/24 00:01 Blood Pressure 146/76 H 06/10/24 21:46 Pulse Oximetry 96 06/11/24 00:01 <Karri Woodson MD - Last Filed: 06/10/24 19:17> Vital Signs Temperature 36.4 C 06/10/24 17:04 Pulse Rate 94 06/10/24 17:04 Respiratory Rate 20 06/10/24 17:04 Blood Pressure 159/93 H 06/10/24 17:04 Pulse Oximetry 98 06/10/24 17:04 Temperature 36.4 C 06/10/24 17:04 Pulse Rate 83 06/11/24 00:01 Respiratory Rate 17 06/11/24 00:01 Blood Pressure 146/76 H 06/10/24 21:46 Pulse Oximetry 96 06/11/24 00:01 <Marin Shah MD - Last Filed: 06/11/24 00:57> MDM - Arrhythmia/Palpitations Lab Data Result diagrams: 06/10/24 17:00 06/10/24 17:00 <Karri Woodson MD - Last Filed: 06/10/24 19:17> Labs: Lab Results 06/10/24 06/10/24 Range/Units 17:00 19:11 WBC 5.5 (4.5-10.0) K/mm3 RBC 3.76 L (4.6-6.20) M/mm3 Hgb 12.1 L (14.0-18.0) g/dL Hct 36.4 L (42.0-52.0) % MCV 96.8 (80-100) fl MCH 32.2 (26-34) pg MCHC 33.2 (32-36) g/dl RDW 12.7 (11.5-14.5) % Plt Count 194 (150-375) k/mm3 MPV 10.8 H (7.4-10.4) fl Immature Gran % (Auto) 0.4 (0-0.5) % Neut % (Auto) 69.9 (45.5-73.1) % Lymph % (Auto) 16.7 L (18.3-44.2) % Chambers % (Auto) 10.2 H (2.6-8.5) % Eos % (Auto) 2.4 (0-4.4) % Baso % (Auto) 0.4 (0.2-1.2) % Lymph # (Auto) 0.92 (0.9-3.2) K/mm3 Chambers # (Auto) 0.6 (0.1-0.6) K/mm3 Eos # (Auto) 0.1 (0-0.3) K/mm3 Baso # (Auto) 0.0 (0.0-0.1) K/mm3 Abs Immat Gran (auto) 0.02 (0.00-0.031) K/mm3 Absolute Neuts (auto) 3.9 (1.3-6.7) K/mm3 Absolute Nucleated RBC 0.000 (0.0-0.012) K/mm3 Nucleated RBC % 0.0 (0.0-0.2) % Sodium 138 (137-145) mmol/L Potassium 3.7 (3.4-5.0) mmol/L Chloride 103 (98-107) mmol/L Carbon Dioxide 28 (22-30) mmol/L Anion Gap 7 (4-12) mmol/L BUN 15 D (9-20) mg/dL Creatinine 0.92 (0.7-1.3) mg/dL Estim Creat Clear Calc 57 ml/min Estimated GFR > 60 (59 - ) Glucose 177 H (65-110) mg/dL Calcium 9.1 (8.4-10.2) mg/dL Total Bilirubin 1.1 (0.2-1.3) mg/dL AST 23 (17-59) U/L ALT 15 (6-50) U/L Alkaline Phosphatase 91 (38-126) U/L Troponin I 0.040 H* (0.000-0.034) ng/mL NT-Pro-B Natriuret Pep 3860 H (19.9-100) pg/mL Total Protein 7.0 (6.3-8.2) g/dL Albumin 3.8 (3.5-5.1) g/dL Lipase 51 (23-300) U/L Influenza A (RT-PCR) Negative (Negative) Influenza B (RT-PCR) Negative (Negative) RSV (RT-PCR) Negative (Negative) SARS-CoV-2 RNA (RT-PCR) Negative (Negative) <Karri Woodson MD - Last Filed: 06/10/24 19:17> Lab Results 06/10/24 06/10/24 Range/Units 17:00 19:11 WBC 5.5 (4.5-10.0) K/mm3 RBC 3.76 L (4.6-6.20) M/mm3 Hgb 12.1 L (14.0-18.0) g/dL Hct 36.4 L (42.0-52.0) % MCV 96.8 (80-100) fl MCH 32.2 (26-34) pg MCHC 33.2 (32-36) g/dl RDW 12.7 (11.5-14.5) % Plt Count 194 (150-375) k/mm3 MPV 10.8 H (7.4-10.4) fl Immature Gran % (Auto) 0.4 (0-0.5) % Neut % (Auto) 69.9 (45.5-73.1) % Lymph % (Auto) 16.7 L (18.3-44.2) % Chambers % (Auto) 10.2 H (2.6-8.5) % Eos % (Auto) 2.4 (0-4.4) % Baso % (Auto) 0.4 (0.2-1.2) % Lymph # (Auto) 0.92 (0.9-3.2) K/mm3 Chambers # (Auto) 0.6 (0.1-0.6) K/mm3 Eos # (Auto) 0.1 (0-0.3) K/mm3 Baso # (Auto) 0.0 (0.0-0.1) K/mm3 Abs Immat Gran (auto) 0.02 (0.00-0.031) K/mm3 Absolute Neuts (auto) 3.9 (1.3-6.7) K/mm3 Absolute Nucleated RBC 0.000 (0.0-0.012) K/mm3 Nucleated RBC % 0.0 (0.0-0.2) % Sodium 138 (137-145) mmol/L Potassium 3.7 (3.4-5.0) mmol/L Chloride 103 (98-107) mmol/L Carbon Dioxide 28 (22-30) mmol/L Anion Gap 7 (4-12) mmol/L BUN 15 D (9-20) mg/dL Creatinine 0.92 (0.7-1.3) mg/dL Estim Creat Clear Calc 57 ml/min Estimated GFR > 60 (59 - ) Glucose 177 H (65-110) mg/dL Calcium 9.1 (8.4-10.2) mg/dL Total Bilirubin 1.1 (0.2-1.3) mg/dL AST 23 (17-59) U/L ALT 15 (6-50) U/L Alkaline Phosphatase 91 (38-126) U/L Troponin I 0.040 H* (0.000-0.034) ng/mL NT-Pro-B Natriuret Pep 3860 H (19.9-100) pg/mL Total Protein 7.0 (6.3-8.2) g/dL Albumin 3.8 (3.5-5.1) g/dL Lipase 51 (23-300) U/L Influenza A (RT-PCR) Negative (Negative) Influenza B (RT-PCR) Negative (Negative) RSV (RT-PCR) Negative (Negative) SARS-CoV-2 RNA (RT-PCR) Negative (Negative) <Marin Shah MD - Last Filed: 06/11/24 00:57> ECG Data EKG #1: ECG completion date: 06/10/24 <Karri Woodson MD - Last Filed: 06/10/24 19:17> ECG completion time: 16:40 <Karri Woodson MD - Last Filed: 06/10/24 19:17> EKG Interpretation: normal rate (85), non-specific ST changes, normal QRS, normal QT, left axis and other (atrial paced) <Karri Woodson MD - Last Filed: 06/10/24 19:17> EKG #2: ECG completion date: 06/10/24 <Karri Woodson MD - Last Filed: 06/10/24 19:17> ECG completion time: 17:36 <Karri Woodson MD - Last Filed: 06/10/24 19:17> EKG Interpretation: normal rate (88), sinus rhythm, PVCs, non-specific ST changes, normal QRS, normal QT and left axis <Karri Woodson MD - Last Filed: 06/10/24 19:17> Critical Care Time Critical Care Time Critical Care Time: Yes <Marin Shah MD - Last Filed: 06/11/24 00:57> Total Critical Care Time: 35 <Marin Shah MD - Last Filed: 06/11/24 00:57> Discharge Plan Discharge Clinical Impression: Anaphylaxis, Angioedema, Breath shortness, Elevated troponin <Karri Woodson MD - Last Filed: 06/10/24 19:17> Patient Disposition: Still a Patient <Karri Woodson MD - Last Filed: 06/10/24 19:17> Condition: Guarded Prognosis <Karri Woodson MD - Last Filed: 06/10/24 19:17>
[2024-06-10 18:25] LABS: Alanine Aminotransferase 15 U/L (6-50); Albumin Level 3.8 g/dL (3.5-5.1); Alkaline Phosphatase 91 U/L (38-126); Anion Gap 7 mmol/L (4-12); Aspartate Amino Transferase 23 U/L (17-59); Bilirubin,Total 1.1 mg/dL (0.2-1.3); Blood Urea Nitrogen 15 mg/dL (9-20); Calcium 9.1 mg/dL (8.4-10.2); Carbon Dioxide 28 mmol/L (22-30); Chloride 103 mmol/L (98-107); Estimated CRCL calculation 57 ml/min; Estimated Glomerular Filt Rate > 60; Glucose 177 mg/dL (65-110); Potassium 3.7 mmol/L (3.4-5.0); Sodium 138 mmol/L (137-145)
[2024-06-10 19:14] LABS: Lipase 51 U/L (23-300)
--- NOTE | 2024-06-10 19:48 | PC.NURSE ---
Patient repositioned in recliner for comfort. Patient denies complaints at this time.
[2024-06-10 20:00] LABS: Influenza A QL RT-PCR Negative (Negative); Influenza B QL RT-PCR Negative (Negative); RSV RNA, RT-PCR Negative (Negative); SARS-CoV-2 RNA PCR Negative (Negative)
[2024-06-10 20:37] LABS: NT Pro B Type Natriuretic Pept 3860 pg/mL (19.9-100)
--- NOTE | 2024-06-10 20:49 | P.HP_ITS ---
H&P: HPI History of Present Illness Date/Time: 06/10/24 20:49 Chief Complaint: Shortness of breath Narrative: This is an 83-year-old male with past medical history significant for coronary artery disease, type diabetes mellitus, benign prostatic hyperplasia, dyslipidemia, GERD, peripheral neuropathy. Patient presents to the emergency room due to swelling of the face and shortness of breath with changes of his v oice as well. In emergency room patient received treatment for angioedema received systemic steroids, patient developed chest pain after receiving epinephrine. Preliminary workup was significant for CT angiogram rule out for acute pulmonary embolism but showed moderate-sized bilateral pleural effusions, brain natriuretic peptide was up wards 4000, patient was ruled out for influenza type A influenza type B COVID and RSV The patient has been placed in observation for further evaluation management and treatment. EXAMINATION: XR chest 1V portable DATE: 06/10/2024 17:21 INDICATION: Shortness of breath. TECHNIQUE: A single frontal view of the chest was obtained. COMPARISON: Chest single view 07/12/2019, PET/CT 11/06/2023 FINDINGS: There are small pleural effusions. There is mild atelectasis at the lung bases. Cardiomegaly is noted. There is a left chest wall pacer with leads in the right atrium and right ventricle. IMPRESSION: 1. Small pleural effusions. 2. Mild atelectasis at the lung bases. 3. Cardiomegaly EXAMINATION: CTA abdomen pelvis DATE: 06/10/2024 19:06 INDICATION: Epigastric abdominal pain. TECHNIQUE: Computed tomographic angiography (CTA) of the abdomen and pelvis was performed with 100 mL Omnipaque-350 intravenous contrast. Automated exposure control and iterative reconstruction technique were employed. The dose-length product was 681.73 mGy-cm. Maximum intensity projection 3D-reconstructions of the aorta and other arteries were constructed by the technologist on a separate workstation. COMPARISON: CT abdomen and pelvis 06/14/2013, PET/CT 11/06/23 FINDINGS: The visualized portions of the lung bases demonstrate mild atelectasis. There are moderate-sized pleural effusions. Cardiomegaly is noted. No pericardial effusion. There are coronary artery calcifications. There are pacer wires in right atrium and right ventricle. The liver and gallbladder are normal. There is a chronic subcapsular hematoma of the spleen with maximum t hickness of 6 mm, stable from 11/06/23. The pancreas and adrenal glands are normal. There is cortical thinning of the kidneys. There is diverticulosis of the colon without evidence of diverticulitis. There are no dilated loops of bowel. The appendix is not visualized. There are no pathologically enlarged lymph nodes. There is no free intraperitoneal fluid. There is a right inguinal hernia containing fat. There is calcified atherosclerosis of the aorta and many of the other arteries. There is no significant stenosis of celiac axis, superior mesenteric artery, or the renal arteries. There is moderate stenosis of the origin of inferior mesenteric artery. There is diffuse bladder wall thickening, likely secondary to chronic outlet obstruction from the mildly enlarged prostate. There are brachytherapy seeds in the prostate. There is severe thoracic spondylosis and moderate lumbar spondylosis. IMPRESSION: 1. Moderate-sized bilateral pleural effusions. 2. Right inguinal hernia containing fat. Review of Systems Review of Systems: Shortness of breath, tongue and lips swelling, chest pain. [facility] Past Medical History Medical History (Updated 06/11/24 @ 00:48 by Stephanie Weber MD) Hepatitis Type 2 diabetes mellitus Back injury GERD (gastroesophageal reflux disease) Irregular heartbeat Surgical History Surgical History H/O Spinal surgery Hx of appendectomy Family History Family History Mother Cancer Other Diabetes mellitus Social History Social History Smoking status: Never smoker Alcohol intake: current Drinks per week: 6 Substance use: never Gender identity (if verbalized by the patient): Male Spiritual care concerns: No Agree to blood products: Yes Meds Home Medications and Allergies Home Medications ?Medication ?Instructions ?Recorded ?Confirmed ?Type aspirin 81 mg tablet,delayed 81 mg PO DAILY 07/13/19 11/17/20 History release (Adult Low Dose Aspirin) atorvastatin 40 mg tablet 40 mg PO DAILY 07/13/19 11/17/20 History esomeprazole magnesium 20 mg 20 mg PO DAILY 07/13/19 07/13/19 History capsule,delayed release (Nexium) gabapentin 300 mg capsule 300 mg PO HS 07/13/19 07/13/19 History metformin 500 mg tablet 1,000 mg PO BID 07/13/19 11/17/20 History lisinopril 10 mg tablet 10 mg PO QAM #30 tabs 07/15/19 11/17/20 Rx metoprolol tartrate 25 mg tablet 12.5 mg (1/2 x 25 mg) PO Q12HR #30 07/15/19 Rx tabs tamsulosin 0.4 mg capsule 0.4 mg PO QHS 11/17/20 11/17/20 History Allergies Allergy/AdvReac Type Severity Reaction Status Date / Time No Known Allergies Allergy Unknown Verified 06/10/24 17:30 Vital Signs Vital Signs - 24 hr 06/10/24 17:04 06/10/24 17:22 06/10/24 17:34 Temperature 97.6 F Pulse Rate 94 100 102 H Respiratory Rate 20 20 20 Blood Pressure 159/93 H Pulse Oximetry 98 06/10/24 17:36 06/10/24 17:53 06/10/24 17:55 Temperature Pulse Rate 96 91 95 Respiratory Rate 20 16 19 Blood Pressure 156/95 H 156/95 H Pulse Oximetry 99 98 98 06/10/24 18:00 06/10/24 18:17 06/10/24 18:45 Temperature Pulse Rate 95 98 94 Respiratory Rate 13 19 20 Blood Pressure 156/90 H Pulse Oximetry 98 95 96 06/10/24 18:46 Temperature Pulse Rate 94 Respiratory Rate 20 Blood Pressure 146/92 H Pulse Oximetry 93 Exam Narrative: Patient is laying in a stretcher Const: General: comfortable, no acute distress, well developed, alert, awake and average body habitus Nutritional Appearance: average body habitus Orientation/consciousness: patient oriented x3 Other: Well-appearing HENMT: Head: normal to inspection, normocephalic and atraumatic Ears: h earing grossly normal bilaterally Face/Nose/Sinus: normal facial exam Face and sinus: normal facial exam Other: old surgical scar left side Eyes: General: appearance normal, both eyes and all related structures Pupils: Equal, round and reactive pupils present EOM: EOMs intact bilaterally Neck: Neck: full ROM, no lymphadenopathy and no JVD Thyroid: thyroid normal Lymphatic: no lymphadenopathy noted Resp: Effort & Inspection: normal respiratory effort and able to speak in complete sentences Auscultation: clear to auscultation bilaterally Cardio: Jugular venous distension: no JVD Rate: regular rate Rhythm: regular rhythm Heart sounds: S1 normal heart sound present and S2 normal heart sound present GI: GI Palp: Yes Soft to palpation and Yes No hepatosplenomegaly present : General: Yes deferred Skin: Rashes: no rashes Wounds: no wounds Neuro: General: patient oriented x3 and CN's II-XI intact bilaterally Cranial nerves: Yes CN's II-XII intact bilaterally and Yes Equal, round and reactive pupils present Cognition (Neuro): normal cognition Speech: normal speech Gait exam (Neuro): Unable to assess gait Motor exam (neuro): 5/5 motor strength present throughout Extrem: General: normal to inspection, full ROM, no joint enlargement and no pedal edema H&P: Results Labs Labs: Short CBC 06/10/24 Range/Units 17:00 WBC 5.5 (4.5-10.0) K/mm3 Hgb 12.1 L (14.0-18.0) g/dL Hct 36.4 L (42.0-52.0) % Plt Count 194 (150-375) k/mm3 BMP 06/10/24 17:00 Sodium 138 Potassium 3.7 Chloride 103 Carbon Dioxide 28 BUN 15 D Creatinine 0.92 Glucose 177 H Calcium 9.1 Cardiac Enzymes 06/10/24 Range/Units 17:00 Troponin I 0.040 H* (0.000-0.034) ng/mL Liver Function 06/10/24 Range/Units 17:00 Total Bilirubin 1.1 (0.2-1.3) mg/dL AST 23 (17-59) U/L ALT 15 (6-50) U/L Alkaline Phosphatase 91 (38-126) U/L Albumin 3.8 (3.5-5.1) g/dL Assessment and Plan Assessment and plan (1) Angioedema: Code(s): T78.3XXA - Angioneurotic edema, initial encounter Status: Acute Assessment and Plan: Placed in observation Stop lisinopril Received Solu-Medrol Received epinephrine Continue to monitor (2) Chest pain: Code(s): R07.9 - Chest pain, unspecified Status: Acute Assessment and Plan: Patient rates his pain a 3-4 in intensity Placed in observation This was after epinephrine (3) HTN (hypertension): Code(s): I10 - Essential (primary) hypertension Status: Acute Assessment and Plan: Resume home meds (4) CAD (coronary artery disease): Code(s): I25.10 - Atherosclerotic heart disease of [place] coronary artery without angina pectoris Status: Acute Assessment and Plan: Continue atorvastatin Continue lisinopril Continue metoprolol (5) Type 2 diabetes mellitus: Qualifiers: Diabetes mellitus long term care social worker insulin use: without nursing home use Diabetes mellitus complication status: without complication Qualified Code(s): E11.9 - Type 2 diabetes mellitus without complications Code(s): E11.9 - Type 2 diabetes mellitus without complications Status: Acute Assessment and Plan: Holding metformin Insulin sliding scale as needed (6) GERD (gastroesophageal reflux disease): Qualifiers: Esophagitis presence: esophagitis presence not specified Qualified Code(s): K21.9 - Gastro-esophageal reflux disease without esophagitis Code(s): K21.9 - Gastro-esophageal reflux disease without esophagitis Status: Acute Assessment and Plan: PPI (7) Pleural effusion due to congestive heart failure: Code(s): I50.9 - Heart failure, unspecified Status: Acute Assessment and Plan: Echocardiogram in a.m. [facility] as needed Hospitalist MIPS Advance Care Plan I have confirmed that the patient's Advanced Care Plan is present, code status is documented, or surrogate decision maker is listed in patient medical record.: Yes Medication Reconciliation I have utilized all available resources to obtain, update and review the patients current medications (includes all prescriptions, OTC, herbals, cannabis, and nutritional supplements).: Yes
--- NOTE | 2024-06-10 21:41 | PC.NURSE ---
Patient placed in hospital bed for comfort.
--- NOTE | 2024-06-10 22:27 | PC.NURSE ---
Patient resting in hospital bed. All vital signs stable. patient denies complaints and is sleeping at this time. call light within reach
--- NOTE | 2024-06-10 23:23 | ECG_ITS ---
Test Date: 2024-06-10 23:54:16 Measurements Intervals [place] Rate: 81 P: 231 CO: 195 QRS: -39 QRSD: 114 T: 83 QT: 418 QTc: 487 Interpretive Statements ELECTRONIC ATRIAL PACEMAKER LEFT AXIS DEVIATION [QRS AXIS < -30] INCOMPLETE RIGHT BUNDLE BRANCH BLOCK [90+ ms QRS DURATION, TERMINAL R IN V1/V2, 40+ ms S IN I/aVL/V4/V5/V6] NONSPECIFIC T-WAVE ABNORMALITY VENTRICULAR PREMATURE COMPLEX Compared to ECG 06/10/2024 17:36:11 NO SIGNIFICANT CHANGES Electronically Signed On 06-11-2024 16:14:07 FLAP PRESSER by Alejandra Allen M.D.
[2024-06-11] VITALS (11 sets, daily range): BP systolic 117–157; BP diastolic 61–86; PULSE 48–97; RESP 15–24; TEMP 36.7; O2SAT 94–100; BMI 30.7
[2024-06-11 00:45] LABS: Troponin I 0.042 ng/mL (0.000-0.034)
[2024-06-11 03:01] LABS: Troponin I 0.045 ng/mL (0.000-0.034)
[2024-06-11] MEDS: FUROSEMIDE INJ 40 MG/4 ML VIAL IV PUSH (09:19)
--- NOTE | 2024-06-11 09:50 | PM.CNCAR ---
Assessment and Plan Assessment and plan (1) Premature ventricular beats: Code(s): I49.3 - Ventricular premature depolarization Status: Acute Assessment and Plan: Benign. Exacerbated by epinephrine. (2) Angioedema: Code(s): T78.3XXA - Angioneurotic edema, initial encounter Status: Acute Assessment and Plan: Monitor. Unknown cause as states he stopped taking Lisinopril many months ago. (3) CAD (coronary artery disease): Code(s): I25.10 - Atherosclerotic heart disease of [place] coronary artery without angina pectoris Status: Acute Assessment and Plan: Stable. (4) HTN (hypertension): Code(s): I10 - Essential (primary) hypertension Status: Acute Assessment and Plan: Stable. (5) Elevated troponin: Code(s): R79.89 - Other specified abnormal findings of blood chemistry Status: Acute Assessment and Plan: Mild and flat up to .045. Obtain echo. (6) Hyperlipidemia: Qualifiers: Hyperlipidemia type: unspecified Qualified Code(s): E78.5 - Hyperlipidemia, unspecified Code(s): E78.5 - Hyperlipidemia, unspecified Status: Chronic Assessment and Plan: On Atorvastatin. 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 Interrogate device, they believe it starts with a B which could be [employer] or [employer]. (8) History of cardiac ablation for atrial fibrillation: Code(s): Z98.890 - Other specified postprocedural states; I48.91 - Unspecified atrial fibrillation Status: Acute History of Present Illness History of Present Illness Consult date/time: 06/11/24 09:50 Reason For Visit: Anaphylaxis reaction, Elevated troponin, Pleural e Narrative: 83 yr old man presents to ER for face swelling. 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 He has a history of pacemaker implanted by Dr. Ramirez in 2023, atrial fibrillation ablation in 2023, CAD and stent placement at [facility] in [id number] time frame, DM, dyslipidemia. His is at bedside. He reports facial swelling and vague about tongue swelling. He was given steroids and epinephrine, and reported chest pain at that time. But now says he does not have chest pains. He works and walks around [employer] without any problems. Denies sob, palpitations, orthopnea, edema. Review of Systems Review of Systems: ROS unobtainable: Yes unobtainable due to endotracheal tube Constitutional: Constitutional: Reports as per HPI, Denies chills and Denies fever(s) Cardiovascular: Cardiovascular: Reports as per HPI, Reports chest pain and Denies irregular heart rhythm Respiratory: Respiratory: Reports as per HPI and Denies dyspnea Gastrointestinal: Gastrointestinal: Reports as per HPI and Denies abdominal pain Genitourinary: Genitourinary: Reports as per HPI and Denies dysuria Musculoskeletal: Musculoskeletal: Reports as per HPI Neurologic: Reports as per HPI, Denies dizziness and Denies syncope [facility] Past Medical History Medical History (Updated 06/11/24 @ 09:55 by Haresh Carrion DO) Hepatitis Type 2 diabetes mellitus Back injury GERD (gastroesophageal reflux disease) Irregular heartbeat Surgical History Surgical History (Updated 06/11/24 @ 09:55 by Haresh Carrion DO) H/O Spinal surgery Hx of appendectomy Family History Family History Mother Cancer Other Diabetes mellitus Social History Social History Smoking status: Never smoker Alcohol intake: current Drinks per week: 6 Substance use: never Gender identity (if verbalized by the patient): Male Spiritual care concerns: No Agree to blood products: Yes Meds Home Medications and Allergies Home Medications ?Medication ?Instructions ?Recorded ?Confirmed ?Type aspirin 81 mg tablet,delayed 81 mg PO DAILY 07/13/19 11/17/20 History release (Adult Low Dose Aspirin) atorvastatin 40 mg tablet 40 mg PO DAILY 07/13/19 06/11/24 History esomeprazole magnesium 20 mg 20 mg PO DAILY 07/13/19 07/13/19 History capsule,delayed release (Nexium) gabapentin 300 mg capsule 300 mg PO HS 07/13/19 07/13/19 History metformin 500 mg tablet 1,000 mg PO BID 07/13/19 06/11/24 History lisinopril 10 mg tablet 10 mg PO QAM #30 tabs 07/15/19 11/17/20 Rx metoprolol tartrate 25 mg tablet 12.5 mg (1/2 x 25 mg) PO Q12HR #30 07/15/19 Rx tabs tamsulosin 0.4 mg capsule 0.4 mg PO QHS 11/17/20 06/11/24 History buspirone 5 mg tablet 5 mg PO BID 06/11/24 06/11/24 History fludrocortisone 0.1 mg tablet 0.1 mg PO BID 06/11/24 06/11/24 History magnesium oxide 400 mg (241.3 mg 400 mg PO BID 06/11/24 06/11/24 History magnesium) tablet midodrine 10 mg tablet 10 mg PO TID 06/11/24 06/11/24 History Allergies Allergy/AdvReac Type Severity Reaction Status Date / Time azithromycin Allergy Severe Anaphylaxis Verified 06/11/24 00:56 lisinopril Allergy Unknown Angioedema Verified 06/11/24 00:56 Vital Signs Vital Signs - 24 hr 06/10/24 17:04 06/10/24 17:22 06/10/24 17:34 Temperature 97.6 F Pulse Rate 94 100 102 H Respiratory Rate 20 20 20 Blood Pressure 159/93 H Pulse Oximetry 98 06/10/24 17:36 06/10/24 17:53 06/10/24 17:55 Temperature Pulse Rate 96 91 95 Respiratory Rate 20 16 19 Blood Pressure 156/95 H 156/95 H Pulse Oximetry 99 98 98 06/10/24 18:00 06/10/24 18:17 06/10/24 18:45 Temperature Pulse Rate 95 98 94 Respiratory Rate 13 19 20 Blood Pressure 156/90 H Pulse Oximetry 98 95 96 06/10/24 18:46 06/10/24 20:07 06/10/24 21:30 Temperature Pulse Rate 94 91 88 Respiratory Rate 20 19 20 Blood Pressure 146/92 H 159/96 H Pulse Oximetry 93 97 06/10/24 21:45 06/10/24 21:46 06/10/24 22:03 Temperature Pulse Rate 82 86 84 Respiratory Rate 16 20 17 Blood Pressure 143/78 H 146/76 H Pulse Oximetry 94 94 95 06/11/24 00:01 06/11/24 01:03 06/11/24 02:37 Temperature Pulse Rate 83 82 81 Respiratory Rate 17 15 15 Blood Pressure 144/76 H 117/83 Pulse Oximetry 96 95 95 06/11/24 03:59 06/11/24 06:24 06/11/24 07:20 Temperature Pulse Rate 67 87 84 Respiratory Rate 18 15 15 Blood Pressure 134/84 147/69 H 157/84 H Pulse Oximetry 100 96 96 06/11/24 08:36 06/11/24 09:20 Temperature Pulse Rate 88 85 Respiratory Rate 21 H 24 H Blood Pressure 146/75 H 137/61 Pulse Oximetry 94 98 Exam Const: General: cooperative, healthy appearing and comfortable Resp: Auscultation: clear to auscultation bilaterally, no crackles, no rales, no rhonchi and no wheezes Cardio: Rate: regular rate Rhythm: regular rhythm Heart sounds: no murmurs GI: GI Palp: No abdominal tenderness and Yes Soft to palpation Neuro: General: oriented to person, oriented to place and oriented to time Extrem: Right lower extremity: no edema Left lower extremity: no edema Results Labs and Meds 06/10/24 17:00 06/10/24 17:00 Lab results: Cardiac Enzymes 06/10/24 06/10/24 06/11/24 Range/Units 17:00 23:55 02:30 AST 23 (17-59) U/L Troponin I 0.040 H* 0.042 H* 0.045 H* (0.000-0.034) ng/mL CBC 06/10/24 Range/Units 17:00 WBC 5.5 (4.5-10.0) K/mm3 RBC 3.76 L (4.6-6.20) M/mm3 Hgb 12.1 L (14.0-18.0) g/dL Hct 36.4 L (42.0-52.0) % Plt Count 194 (150-375) k/mm3 Lymph # (Auto) 0.92 (0.9-3.2) K/mm3 [place] # (Auto) 0.6 (0.1-0.6) K/mm3 Eos # (Auto) 0.1 (0-0.3) K/mm3 Baso # (Auto) 0.0 (0.0-0.1) K/mm3 Comprehensive Metabolic Panel 06/10/24 Range/Units 17:00 Sodium 138 (137-145) mmol/L Potassium 3.7 (3.4-5.0) mmol/L Chloride 103 (98-107) mmol/L Carbon Dioxide 28 (22-30) mmol/L BUN 15 D (9-20) mg/dL Creatinine 0.92 (0.7-1.3) mg/dL Glucose 177 H (65-110) mg/dL Calcium 9.1 (8.4-10.2) mg/dL AST 23 (17-59) U/L ALT 15 (6-50) U/L Alkaline Phosphatase 91 (38-126) U/L Total Protein 7.0 (6.3-8.2) g/dL Albumin 3.8 (3.5-5.1) g/dL Intake and Output 06/10/24 06/11/24 06/11/24 23:59 07:59 15:59 Intake Total 50 Output Total 600 200 Balance 50 -600 -200 Intake: IV 50 Sodium Chloride 0.9% IV 50 ml @ 50 0 mls/hr .ROUTE .[facility] Rx#:[id number] Output: Urine 600 200
--- NOTE | 2024-06-11 16:00 | ADMGEN ---
This patient, Jose Tolentino, was admitted to [facility] Surg Room 321-01. Patient/family oriented to hospital policies and general routines including ID bracelet, bed and alarms, visiting hours, pain management, procedures, bathroom and other care routines, personal items, smoking policy, room service/diet, and visiting hours. Information on how to activate the Rapid Response Team has been discussed. Patient/Family are encouraged to report perceived risks to care and to ask questions if they do not understand what they are told or what they should do.
--- NOTE | 2024-06-11 16:02 | PM.IMPN ---
Progress Note: A&P Assessment and Plan (1) Angioedema: Code(s): T78.3XXA - Angioneurotic edema, initial encounter Status: Acute Assessment and Plan: Symptoms much improved. lisinopril discontinued. Received Solu-Medrol. Received epinephrine. Started on scheduled famotidine. No indication for continued steroids currently. Continue to monitor (2) Chest pain: Code(s): R07.9 - Chest pain, unspecified Status: Acute Assessment and Plan: Denies symptoms currently. Occurred briefly after receiving epinephrine Troponin mildly elevated and plateaued. EKG: A-pacing with no ischemic changes. Echo pending. Possibly musculoskeletal and we will monitor closely. (3) HTN (hypertension): Code(s): I10 - Essential (primary) hypertension Status: Acute Assessment and Plan: BP appears well controlled currently. Monitor for now. Avoid Anurag inhibitors for now with angioedema. Consider antihypertensives if blood pressure elevates. (4) CAD (coronary artery disease): Code(s): I25.10 - Atherosclerotic heart disease of [place] coronary artery without angina pectoris Status: Acute Assessment and Plan: Chronic. No chest pain, shortness a breath, or acute ischemic changes on EKG. Continue aspirin, metoprolol and statin. 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 (7) Pleural effusion due to congestive heart failure: Code(s): I50.9 - Heart failure, unspecified Status: Acute Assessment and Plan: Echocardiogram pending. Continue diuresis. I&Os monitoring with daily weights. Time Spent With Patient Time with patient: 15 - 25 minutes Subjective Date/time seen: 06/11/24 09:02 Patient states he feels much better and he ate his breakfast and tolerated well. States his breathing is okay his face swelling looks much improved. Interval history: Patient calm on bedrest and looks to be in no acute distress noted. Review of Systems Review of Systems: All systems reviewed & are unremarkable except as noted in HPI and below Exam Narrative: General: Well appearing, no acute distress. HEENT: Atraumatic, PERRL, EOMI, moist mucosa. Neck: Supple. Lungs: Clear bilaterally. Heart: Regular rate and rhythm, no murmurs. Abdomen: Soft, nontender, nondistended, positive bowel sounds x4 quadrants. Extremities: No cyanosis, no edema. Neuro: Well oriented, no focal neuro deficits noted. Psych: Pleasant and cooperative. Objective Data Vital Signs Vital Signs: Vital Signs - 24 hr 06/10/24 17:04 06/10/24 17:22 06/10/24 17:34 Temperature 97.6 F Pulse Rate 94 100 102 H Respiratory Rate 20 20 20 Blood Pressure 159/93 H Pulse Oximetry 98 06/10/24 17:36 06/10/24 17:53 06/10/24 17:55 Temperature Pulse Rate 96 91 95 Respiratory Rate 20 16 19 Blood Pressure 156/95 H 156/95 H Pulse Oximetry 99 98 98 06/10/24 18:00 06/10/24 18:17 06/10/24 18:45 Temperature Pulse Rate 95 98 94 Respiratory Rate 13 19 20 Blood Pressure 156/90 H Pulse Oximetry 98 95 96 06/10/24 18:46 06/10/24 20:07 06/10/24 21:30 Temperature Pulse Rate 94 91 88 Respiratory Rate 20 19 20 Blood Pressure 146/92 H 159/96 H Pulse Oximetry 93 97 06/10/24 21:45 06/10/24 21:46 06/10/24 22:03 Temperature Pulse Rate 82 86 84 Respiratory Rate 16 20 17 Blood Pressure 143/78 H 146/76 H Pulse Oximetry 94 94 95 06/11/24 00:01 06/11/24 01:03 06/11/24 02:37 Temperature Pulse Rate 83 82 81 Respiratory Rate 17 15 15 Blood Pressure 144/76 H 117/83 Pulse Oximetry 96 95 95 06/11/24 03:59 06/11/24 06:24 06/11/24 07:20 Temperature Pulse Rate 67 87 84 Respiratory Rate 18 15 15 Blood Pressure 134/84 147/69 H 157/84 H Pulse Oximetry 100 96 96 06/11/24 08:36 06/11/24 09:20 06/11/24 11:33 Temperature Pulse Rate 88 85 78 Respiratory Rate 21 H 24 H Blood Pressure 146/75 H 137/61 132/86 Pulse Oximetry 94 98 06/11/24 14:47 Temperature Pulse Rate 97 Respiratory Rate 19 Blood Pressure 134/66 Pulse Oximetry 99 Intake/Output Intake/Output: Intake & Output 06/08/24 06/09/24 06/10/24 06/11/24 23:59 23:59 23:59 23:59 Intake Total 50 Output Total 1475 Balance 50 -1475 Meds/Results Medications: Active Medications Generic Name Dose Route Start Last Admin Trade Name Freq PRN Reason Stop Dose Admin Furosemide 40 mg 06/11/24 09:00 06/11/24 09:19 Furosemide Inj 40 Mg/4 Ml Vial IV PUSH 40 mg BID DONNA Administration Perflutren Lipid Microsphere 0 ml 06/10/24 20:16 Perflutren Lipid Microspheres 1.5 Ml Vial Diluted To 10 Ml Total Volume IV PUSH 06/13/24 20:19 ONCE PRN adequate visualization Protocol Radiology Results: ITS Impressions Chest X-Ray 06/10/24 17:33 IMPRESSION: 1. Small pleural effusions. 2. Mild atelectasis at the lung bases. 3. Cardiomegaly Abdomen/Pelvis CTA 06/10/24 19:16 IMPRESSION: 1. Moderate-sized bilateral pleural effusions. 2. Right inguinal hernia containing fat. Labs Labs: Laboratory Results - last 24 hr 06/10/24 06/10/24 06/10/24 17:00 19:11 23:55 WBC 5.5 RBC 3.76 L Hgb 12.1 L Hct 36.4 L MCV 96.8 MCH 32.2 MCHC 33.2 RDW 12.7 Plt Count 194 MPV 10.8 H Immature Gran % (Auto) 0.4 Neut % (Auto) 69.9 Lymph % (Auto) 16.7 L [place] % (Auto) 10.2 H Eos % (Auto) 2.4 Baso % (Auto) 0.4 Lymph # (Auto) 0.92 [place] # (Auto) 0.6 Eos # (Auto) 0.1 Baso # (Auto) 0.0 Abs Immat Gran (auto) 0.02 Absolute Neuts (auto) 3.9 Absolute Nucleated RBC 0.000 Nucleated RBC % 0.0 Sodium 138 Potassium 3.7 Chloride 103 Carbon Dioxide 28 Anion Gap 7 BUN 15 D Creatinine 0.92 Estim Creat Clear Calc 57 Estimated GFR > 60 Glucose 177 H Calcium 9.1 Total Bilirubin 1.1 AST 23 ALT 15 Alkaline Phosphatase 91 Troponin I 0.040 H* 0.042 H* NT-Pro-B Natriuret Pep 3860 H Total Protein 7.0 Albumin 3.8 Lipase 51 Influenza A (RT-PCR) Negative Influenza B (RT-PCR) Negative RSV (RT-PCR) Negative SARS-CoV-2 RNA (RT-PCR) Negative 06/11/24 02:30 WBC RBC Hgb Hct MCV MCH MCHC RDW Plt Count MPV Immature Gran % (Auto) Neut % (Auto) Lymph % (Auto) [place] % (Auto) Eos % (Auto) Baso % (Auto) Lymph # (Auto) [place] # (Auto) Eos # (Auto) Baso # (Auto) Abs Immat Gran (auto) Absolute Neuts (auto) Absolute Nucleated RBC Nucleated RBC % Sodium Potassium Chloride Carbon Dioxide Anion Gap BUN Creatinine Estim Creat Clear Calc Estimated GFR Glucose Calcium Total Bilirubin AST ALT Alkaline Phosphatase Troponin I 0.045 H* NT-Pro-B Natriuret Pep Total Protein Albumin Lipase Influenza A (RT-PCR) Influenza B (RT-PCR) RSV (RT-PCR) SARS-CoV-2 RNA (RT-PCR) Quality VTE Prophylaxis VTE prophylaxis: mechanical ordered Hospitalist MIPS Advance Care Plan I have confirmed that the patient's Advanced Care Plan is present, code status is documented, or surrogate decision maker is listed in patient medical record.: Yes Medication Reconciliation I have utilized all available resources to obtain, update and review the patients current medications (includes all prescriptions, OTC, herbals, cannabis, and nutritional supplements).: Yes
[2024-06-11 16:52] LABS: Glucose Point of Care 235 mg/dl (65-105)
[2024-06-11] MEDS: INSULIN ASPART (*BKC) 100 UNITS/ML SUB-Q (17:04)
[2024-06-11] MEDS: busPIRone HCL 5 MG TABLET PO (17:04)
[2024-06-11] MEDS: FAMOTIDINE 20 MG TABLET PO (20:15)
[2024-06-11] MEDS: TAMSULOSIN HCL 0.4 MG CAPSULE PO (20:16)
[2024-06-11 21:37] LABS: Glucose Point of Care 150 mg/dl (65-105)
[2024-06-12 05:36] VITALS: BP 132/92; PULSE 65; RESP 16; TEMP 36.5; O2SAT 96
--- NOTE | 2024-06-12 06:00 | ECHO_ITS ---
Patient Info Name: Jose Tolentino Age: 83 years : 1940 Gender: Male Ht: 67 in Wt: 174 lbs BSA: 1.95 m2 HR: 65 bpm BP: 132 / 92 mmHg Technical Quality: Good Exam Date: 06/12/2024 10:48 AM Exam Location: Echo Lab Exam Room: [facility]– [place] Patient Status: Inpatient Admit Date: 06/10/2024 Staff Ordering Physician: Marin Shah MD Dye Padder Operator: Ryann Lara RDCS Attending Provider: Stephanie Weber MD Referring Physician: Alyssa ELAINE; Exam Type: CA echo doppler color flow Study Info Indications - Elevated troponin, pleural effusions. Complete two-dimensional, color flow and Doppler transthoracic echocardiogram is performed. Summary 1. Complete two-dimensional, color flow and Doppler transthoracic echocardiogram is performed. 2. Left ventricular chamber dimension is mildly enlarged. 3. Left ventricular systolic function is normal, estimated at 55-60%. 4. There is mild concentric increased left ventricular wall thickness. 5. The left ventricular diastolic function is grade III diastolic dysfunction. 6. E/e' 18 is elevated. 7. Linear artifact in right ventricle suggestive of catheter(s), pacemaker lead(s), or ICD lead(s). 8. Left atrial chamber dimension is moderately enlarged. 9. Linear artifact in the right atrium suggestive of catheter(s), pacemaker lead(s), or ICD lead(s). 10. There is mild aortic valve sclerosis. 11. There is trace aortic valve regurgitation. 12. There is moderate mitral valve regurgitation. 13. There is mild tricuspid valve regurgitation. 14. Severe pulmonary hypertension, estimated pulmonary arterial systolic pressure is 70 mmHg. 15. Dilated inferior vena cava with >50% collapse upon inspiration consistent with elevated right atrial pressure, 10 mmHg. Left Ventricle E/e' 18 is elevated. Left ventricular chamber dimension is mildly enlarged. Left ventricular systolic function is normal, estimated at 55-60%. There is mild concentric increased left ventricular wall thickness. The left ventricular diastolic function is grade III diastolic dysfunction. Right Ventricle Right ventricular systolic function is normal and with normal TAPSE 2.0 cm. Linear artifact in right ventricle suggestive of catheter(s), pacemaker lead(s), or ICD lead(s). Right ventricular chamber dimension is normal. Left Atria Left atrial chamber dimension is moderately enlarged. Right Atria Linear artifact in the right atrium suggestive of catheter(s), pacemaker lead(s), or ICD lead(s). Right atrial chamber dimension is normal. Aortic Valve The aortic valve is trileaflet. There is mild aortic valve sclerosis. There is no aortic valve stenosis. There is trace aortic valve regurgitation. Pulmonic Valve There is no pulmonic regurgitation. Mitral Valve There is no mitral valve stenosis. There is moderate mitral valve regurgitation. Tricuspid Valve There is mild tricuspid valve regurgitation. Severe pulmonary hypertension, estimated pulmonary arterial systolic pressure is 70 mmHg. Pericardium/Pleural There is no pericardial effusion. Inferior Vena Cava Dilated inferior vena cava with >50% collapse upon inspiration consistent with elevated right atrial pressure, 10 mmHg. Aorta The aortic root size at the sinus of Valsalva is normal. Left Ventricular Outflow Tract Name Value Normal LVOT 2D LVOT Diameter 2.1 cm LVOT Doppler LVOT Peak Gradient 3 mmHg LVOT Mean Gradient 1 mmHg LVOT VTI 16 cm LVOT VTI/AV VTI Ratio 0.6 LVOT Stroke Volume 55 ml LVOT CO 4.5 l/min LVOT CI 2.3 l/min/m2 Pulmonic Valve Name Value Normal PV Doppler PV Peak Gradient 2 mmHg PV Regurgitation Doppler OH Peak End Diastolic Velocity 131 cm/s Mitral Valve Name Value Normal MV Doppler MV Peak Gradient 6 mmHg MV Mean Gradient 2 mmHg MV Decel Cataño 689 cm/s2 MV PHT 47 ms MV Area (PHT) 4.7 cm2 4.0-5.0 MV Area (Cont Eq VTI) 2.0 cm2 MV Regurgitation Doppler MR Peak Gradient 169 mmHg MV Diastolic Function MV E Peak Velocity 112 cm/s MV A Peak Velocity 39 cm/s MV E/A 2.9 MV Decel Time 163 ms MV Annular TDI MV E/e' (Septal) 23.1 <=8.0 MV E/e' (Lateral) 15.5 <=8.0 MV E/e' (Average) 19.3 Tricuspid Valve Name Value Normal TV Regurgitation Doppler TR Peak Velocity 386 cm/s TR Peak Gradient 60 mmHg Estimated PAP/RSVP RA Pressure 10 mmHg <=5 PA Systolic Pressure 70 mmHg <36 RV Systolic Pressure 70 mmHg <36 Aortic Valve Name Value Normal AV Doppler AV Peak Velocity 134 cm/s AV Peak Gradient 7 mmHg AV Mean Gradient 4 mmHg AV VTI 27 cm AV Area (Cont Eq VTI) 2.0 cm2 >=3.0 AV Area (Cont Eq Leroy) 2.1 cm2 AV Regurgitation 2D LVOT Area 3.4 cm2 AV Regurgitation Doppler AR Decel Time 3,277 ms AR Decel Cataño 128 cm/s2 AR PHT 950 ms Ventricles Name Value Normal LV Dimensions 2D/MM IVS Diastolic Thickness (2D) 1.1 cm 0.6-1.0 LVID Diastole (2D) 4.9 cm 4.2-5.8 LVIW Diastolic Thickness (2D) 1.1 cm 0.6-1.0 LVID Systole (2D) 4.4 cm 2.5-4.0 LVOT Diameter 2.1 cm LV Mass (2D Cubed) 198.77 g 88.00-224.00 LV Mass Index (2D Cubed) 102 g/m2 49-115 Relative Wall Thickness (2D) 0.43 LV Fractional Shortening/Ejection Fraction 2D/MM LV Fractional Shortening (2D) 10 % 25-43 LV EF (2D Teicholz) 22 % 52-72 LV Diastolic Volume (4C MOD) 125 ml LV EF (4C MOD) 43 % LV Diastolic Volume (2C MOD) 142 ml LV EF (2C MOD) 46 % LV Diastolic Volume (BP MOD) 140 ml 62-150 LV Diastolic Volume Index (BP MOD) 72 ml/m2 34-74 LV Systolic Volume (BP MOD) 76 ml 21-61 LV Systolic Volume Index (BP MOD) 39 ml/m2 11-31 LV EF (BP MOD) 46 % 52-72 LV Diastolic Length (4C) 7.6 cm LV Systolic Length (4C) 7.4 cm LV Stroke Volume (4C MOD) 54 ml LV CO (BP MOD) 5.3 l/min LV CI (BP MOD) 2.7 l/min/m2 Atria Name Value Normal LA Dimensions LA Volume (4C A-L) 84 ml LA Volume (BP A-L) 81 ml RA Dimensions RA Area (4C) 16.7 cm2 <=18.0 Report Signatures
--- NOTE | 2024-06-12 07:46 | PM.PNCARD ---
Progress Note: A&P Assessment and Plan (1) Premature ventricular beats: Code(s): I49.3 - Ventricular premature depolarization Status: Acute Assessment and Plan: Benign. Exacerbated by epinephrine. (2) Angioedema: Code(s): T78.3XXA - Angioneurotic edema, initial encounter Status: Acute Assessment and Plan: Monitor. Unknown cause as states he stopped taking Lisinopril many months ago. (3) CAD (coronary artery disease): Code(s): I25.10 - Atherosclerotic heart disease of [place] coronary artery without angina pectoris Status: Acute Assessment and Plan: Stable. (4) HTN (hypertension): Code(s): I10 - Essential (primary) hypertension Status: Acute Assessment and Plan: Stable. (5) Elevated troponin: Code(s): R79.89 - Other specified abnormal findings of blood chemistry Status: Acute Assessment and Plan: Mild and flat up to .045. Obtain echo. If echo is OK no further cardiac workup is needed. (6) Hyperlipidemia: Qualifiers: Hyperlipidemia type: unspecified Qualified Code(s): E78.5 - Hyperlipidemia, unspecified Code(s): E78.5 - Hyperlipidemia, unspecified Status: Chronic Assessment and Plan: On Atorvastatin. 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 Interrogate device, they believe it starts with a B which could be [employer] or [employer]. (8) History of cardiac ablation for atrial fibrillation: Code(s): Z98.890 - Other specified postprocedural states; I48.91 - Unspecified atrial fibrillation Status: Acute Subjective Date/time seen: 06/12/24 07:46 Interval history: States he feels better no longer feeling a large tongue. No chest pain or sob. Exam Const: General: cooperative, healthy appearing and comfortable Orientation/consciousness: oriented to person, oriented to place and oriented to time Resp: Auscultation: clear to auscultation bilaterally, no crackles, no rales, no rhonchi and no wheezes Cardio: Rate: regular rate Rhythm: regular rhythm Heart sounds: no murmurs Neuro: General: oriented to person, oriented to place and oriented to time Extrem: Right lower extremity: no edema Left lower extremity: no edema Objective Data Vital Signs Vital Signs: Vital Signs - 24 hr 06/11/24 08:36 06/11/24 09:20 06/11/24 11:33 Temperature Pulse Rate 88 85 78 Respiratory Rate 21 H 24 H Blood Pressure 146/75 H 137/61 132/86 Pulse Oximetry 94 98 Oxygen Delivery 06/11/24 14:47 06/11/24 16:21 06/11/24 22:00 Temperature 98.0 F Pulse Rate 97 48 L Respiratory Rate 19 20 Blood Pressure 134/66 150/61 H Pulse Oximetry 99 97 Oxygen Delivery Room Air 06/12/24 05:36 Temperature 97.7 F Pulse Rate 65 Respiratory Rate 16 Blood Pressure 132/92 H Pulse Oximetry 96 Oxygen Delivery Intake/Output Intake/Output: Intake & Output 06/09/24 06/10/24 06/11/24 06/12/24 23:59 23:59 23:59 23:59 Intake Total 50 790 250 Output Total 1475 200 Balance 50 -685 50 Meds/Results Medications: Active Medications Generic Name Dose Route Start Last Admin Trade Name Freq PRN Reason Stop Dose Admin Atorvastatin Calcium 40 mg 06/12/24 09:00 Atorvastatin 40 Mg Tablet PO DAILY DONNA Buspirone HCl 5 mg 06/11/24 17:00 06/11/24 17:04 Buspirone Hcl 5 Mg Tablet PO 5 mg BID DONNA Administration Dextrose 12.5 gm 06/11/24 16:37 Dextrose 50% 25 Gm/50 Ml Syringe IV PUSH PRN PRN Hypoglycemia Protocol Famotidine 20 mg 06/11/24 21:00 06/11/24 20:15 Famotidine 20 Mg Tablet PO 20 mg Q12HR DONNA Administration Furosemide 40 mg 06/12/24 09:00 Furosemide Inj 40 Mg/4 Ml Vial IV PUSH DAILY DONNA Glucagon 1 mg 06/11/24 16:37 Glucagon For Inj 1 Mg Vial IM PRN PRN Hypoglycemia Protocol Glucose 15 gm 06/11/24 16:37 Glucose Oral Gel 15 Gm Of Glucse In 37.5 Gm Tube PO PRN PRN Hypoglycemia Protocol Dextrose 1,000 mls @ 100 mls/hr 06/11/24 16:37 Dextrose 5% 1,000 Ml IVPB PRN PRN Hypoglycemia Protocol Insulin Aspart 4 units 06/11/24 17:00 06/11/24 17:04 Insulin Aspart (*Bkc) 100 Units/Ml 0.05 units/kg (4 units) 4 units SUB-Q Administration TIDWM [facility] Perflutren Lipid Microsphere 0 ml 06/10/24 20:16 Perflutren Lipid Microspheres 1.5 Ml Vial Diluted To 10 Ml Total Volume IV PUSH 06/13/24 20:19 ONCE PRN adequate visualization Protocol Tamsulosin HCl 0.4 mg 06/11/24 21:00 06/11/24 20:16 Tamsulosin Hcl 0.4 Mg Capsule PO 0.4 mg QHS DONNA Administration Radiology Results: ITS Impressions Chest X-Ray 06/10/24 17:33 IMPRESSION: 1. Small pleural effusions. 2. Mild atelectasis at the lung bases. 3. Cardiomegaly Abdomen/Pelvis CTA 06/10/24 19:16 IMPRESSION: 1. Moderate-sized bilateral pleural effusions. 2. Right inguinal hernia containing fat. Labs Labs: Laboratory Results - last 24 hr 06/11/24 06/11/24 16:45 20:08 POC Capillary Glucose 235 H 150 H
[2024-06-12 08:21] VITALS: O2SAT 92
[2024-06-12 08:38] LABS: Glucose Point of Care 154 mg/dl (65-105)
[2024-06-12] MEDS: FUROSEMIDE INJ 40 MG/4 ML VIAL IV PUSH (08:39)
[2024-06-12] MEDS: busPIRone HCL 5 MG TABLET PO ×2 (08:39→17:27)
[2024-06-12] MEDS: FAMOTIDINE 20 MG TABLET PO ×2 (08:39→20:09)
[2024-06-12] MEDS: ATORVASTATIN 40 MG TABLET PO (08:39)
--- NOTE | 2024-06-12 09:34 | P.PNIM_ITS ---
Progress Note: A&P Assessment and Plan (1) Angioedema: Code(s): T78.3XXA - Angioneurotic edema, initial encounter Status: Acute Assessment and Plan: Symptoms much improved. lisinopril discontinued. Received Solu-Medrol. Received epinephrine. Started on scheduled famotidine. No indication for continued steroids currently. Continue to monitor (2) Chest pain: Code(s): R07.9 - Chest pain, unspecified Status: Acute Assessment and Plan: Resolved Denies symptoms currently. Occurred briefly after receiving epinephrine Troponin mildly elevated and plateaued. EKG: A-pacing with no ischemic changes. waiting for cardiology's final recommendations after ECHO Possibly musculoskeletal and we will monitor closely. (3) Pleural effusion due to congestive heart failure: Code(s): I50.9 - Heart failure, unspecified Status: Acute Assessment and Plan: Echocardiogram pending. Continue diuresis. I&Os monitoring with daily weights. Repeat chest x-ray in the a.m. (4) HTN (hypertension): Code(s): I10 - Essential (primary) hypertension Status: Acute Assessment and Plan: BP appears well controlled currently. Monitor for now. Avoid Anurag inhibitors for now with angioedema. Consider antihypertensives if blood pressure elevates. Patient not requiring antihypertensive at this current time (5) CAD (coronary artery disease): Code(s): I25.10 - Atherosclerotic heart disease of [place] coronary artery without angina pectoris Status: Acute Assessment and Plan: Chronic. No chest pain, shortness a breath, or acute ischemic changes on EKG. Continue aspirin, metoprolol and statin. 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 mellitus terminal clerk insulin use: without residential use Qualified Code(s): E11.9 - Type 2 diabetes mellitus without complications Code(s): E11.9 - Type 2 diabetes mellitus without complications Status: Acute Assessment and Plan: Holding metformin Insulin sliding scale as needed Heart healthy diet (7) GERD (gastroesophageal reflux disease): Qualifiers: Esophagitis presence: esophagitis presence not specified Qualified Code(s): K21.9 - Gastro-esophageal reflux disease without esophagitis Code(s): K21.9 - Gastro-esophageal reflux disease without esophagitis Status: Acute Assessment and Plan: Famotidine. Time Spent With Patient Time with patient: Greater than 35 minutes Subjective Date/time seen: 06/12/24 09:34 Interval history: 83-year-old male with past medical history significant for coronary artery disease, type diabetes mellitus, benign prostatic hyperplasia, dyslipidemia, GERD, peripheral neuropathy. Patient presents to the emergency room due to swelling of the face and shortness of breath with changes of his voice as well. Patient still has edema in his face, his on IV Lasix for pulmonary edema, plan to repeat chest x-ray in the morning and possible discharge. Review of Systems Review of Systems: All systems reviewed & are unremarkable except as noted in HPI and below Exam Narrative: General: Well appearing, no acute distress. HEENT: Cheeks edematous, tracheal midline, Atraumatic, PERRL, EOMI, moist mucosa. Neck: Supple. Lungs: Diminished bilaterally. Heart: Regular rate and rhythm, no murmurs. Abdomen: Soft, nontender, nondistended, positive bowel sounds x4 quadrants. Extremities: No cyanosis, no edema. Neuro: Well oriented, no focal neuro deficits noted. Psych: Pleasant and cooperative. Objective Data Vital Signs Vital Signs: Vital Signs - 24 hr 06/11/24 11:33 06/11/24 14:47 06/11/24 16:21 Temperature Pulse Rate 78 97 Respiratory Rate 19 Blood Pressure 132/86 134/66 Pulse Oximetry 99 Oxygen Delivery Room Air 06/11/24 22:00 06/12/24 05:36 06/12/24 08:00 Temperature 98.0 F 97.7 F Pulse Rate 48 L 65 Respiratory Rate 20 16 Blood Pressure 150/61 H 132/92 H Pulse Oximetry 97 96 Oxygen Delivery Room Air Intake/Output Intake/Output: Intake & Output 06/09/24 06/10/24 06/11/24 06/12/24 23:59 23:59 23:59 23:59 Intake Total 50 790 250 Output Total 1475 200 Balance 50 -685 50 Meds/Results Medications: Active Medications Generic Name Dose Route Start Last Admin Trade Name Danielq PRN Reason Stop Dose Admin Atorvastatin Calcium 40 mg 06/12/24 09:00 06/12/24 08:39 Atorvastatin 40 Mg Tablet PO 40 mg DAILY DONNA Administration Buspirone HCl 5 mg 06/11/24 17:00 06/12/24 08:39 Buspirone Hcl 5 Mg Tablet PO 5 mg BID DONNA Administration Dextrose 12.5 gm 06/11/24 16:37 Dextrose 50% 25 Gm/50 Ml Syringe IV PUSH PRN PRN Hypoglycemia Protocol Famotidine 20 mg 06/11/24 21:00 06/12/24 08:39 Famotidine 20 Mg Tablet PO 20 mg Q12HR DONNA Administration Furosemide 40 mg 06/12/24 09:00 06/12/24 08:39 Furosemide Inj 40 Mg/4 Ml Vial IV PUSH 40 mg DAILY DONNA Administration Glucagon 1 mg 06/11/24 16:37 Glucagon For Inj 1 Mg Vial IM PRN PRN Hypoglycemia Protocol Glucose 15 gm 06/11/24 16:37 Glucose Oral Gel 15 Gm Of Glucse In 37.5 Gm Tube PO PRN PRN Hypoglycemia Protocol Dextrose 1,000 mls @ 100 mls/hr 06/11/24 16:37 Dextrose 5% 1,000 Ml IVPB PRN PRN Hypoglycemia Protocol Insulin Aspart 4 units 06/11/24 17:00 06/12/24 08:41 Insulin Aspart (*Bkc) 100 Units/Ml 0.05 units/kg (4 units) Not Given SUB-Q TIDWM [facility] Perflutren Lipid Microsphere 0 ml 06/10/24 20:16 Perflutren Lipid Microspheres 1.5 Ml Vial Diluted To 10 Ml Total Volume IV PUSH 06/13/24 20:19 ONCE PRN adequate visualization Protocol Tamsulosin HCl 0.4 mg 06/11/24 21:00 06/11/24 20:16 Tamsulosin Hcl 0.4 Mg Capsule PO 0.4 mg QHS DONNA Administration Radiology Results: ITS Impressions Chest X-Ray 06/10/24 17:33 IMPRESSION: 1. Small pleural effusions. 2. Mild atelectasis at the lung bases. 3. Cardiomegaly Abdomen/Pelvis CTA 06/10/24 19:16 IMPRESSION: 1. Moderate-sized bilateral pleural effusions. 2. Right inguinal hernia containing fat. Labs Labs: Laboratory Results - last 24 hr 06/11/24 06/11/24 06/12/24 16:45 20:08 08:06 POC Capillary Glucose 235 H 150 H 154 H Quality VTE Prophylaxis VTE prophylaxis: mechanical ordered
[2024-06-12 12:56] LABS: Glucose Point of Care 291 mg/dl (65-105)
[2024-06-12] MEDS: INSULIN ASPART (*BKC) 100 UNITS/ML SUB-Q ×2 (13:09→17:32)
[2024-06-12 14:36] VITALS: BP 110/57; PULSE 81; RESP 18; TEMP 36.8; O2SAT 98
--- NOTE | 2024-06-12 16:56 | PC.NURSE ---
On 06/12/24, the student, [Zora Rivas ], provided care and completed [facility] documentation on this patient. I have reviewed the student's documentation and agree with the findings.
[2024-06-12 17:08] LABS: Glucose Point of Care 241 mg/dl (65-105)
[2024-06-12 20:00] VITALS: PULSE 81; RESP 18; O2SAT 98
[2024-06-12] MEDS: MELATONIN 3 MG TABLET PO (20:09)
[2024-06-12] MEDS: TAMSULOSIN HCL 0.4 MG CAPSULE PO (20:09)
[2024-06-12 20:49] LABS: Glucose Point of Care 105 mg/dl (65-105)
[2024-06-12 21:26] VITALS: BP 177/89; PULSE 79; RESP 16; TEMP 36.4; O2SAT 97
[2024-06-13 06:00] VITALS: BP 168/89; PULSE 81; RESP 12; TEMP 36.2; O2SAT 96
--- NOTE | 2024-06-13 07:41 | P.PNCA_ITS ---
Progress Note: A&P Assessment and Plan (1) Premature ventricular beats: Code(s): I49.3 - Ventricular premature depolarization Status: Acute Assessment and Plan: Benign. Exacerbated by epinephrine. (2) Angioedema: Code(s): T78.3XXA - Angioneurotic edema, initial encounter Status: Acute Assessment and Plan: Monitor. Unknown cause as states he stopped taking Lisinopril many months ago. (3) CAD (coronary artery disease): Code(s): I25.10 - Atherosclerotic heart disease of [place] coronary artery without angina pectoris Status: Acute Assessment and Plan: Stable. (4) HTN (hypertension): Code(s): I10 - Essential (primary) hypertension Status: Acute Assessment and Plan: Stable. (5) Elevated troponin: Code(s): R79.89 - Other specified abnormal findings of blood chemistry Status: Acute Assessment and Plan: Mild and flat up to .045. 06/12/24 Echo: EF 55-60%, mild LVH, grade III diastolic dysfunction (E/e' 18), mod LAE, trace AI, mod MR, mild TR, RVSP 70 mmHg. (6) Hyperlipidemia: Qualifiers: Hyperlipidemia type: unspecified Qualified Code(s): E78.5 - Hyperlipidemia, unspecified Code(s): E78.5 - Hyperlipidemia, unspecified Status: Chronic Assessment and Plan: On Atorvastatin. (7) Pacemaker: Code(s): Z95.0 - Presence of cardiac pacemaker Status: Acute Assessment and Plan: Regular outlet manager is Dr. Cadet. Interrogate device, they believe it starts with a B which could be [employer] or [employer]. Unable to interrogate but he is at atrial paced rhythm. (8) History of cardiac ablation for atrial fibrillation: Code(s): Z98.890 - Other specified postprocedural states; I48.91 - Unspecified atrial fibrillation Status: Acute (9) Diastolic heart failure: Code(s): I50.30 - Unspecified diastolic (congestive) heart failure Status: Acute Assessment and Plan: Appears euvolemic now. Acute on chronic. Change Lasix 40 mg IV daily to PO daily. May d/c home from cardiology standpoint and f/u with his regular outlet manager, Dr. Cadet in next 1-2 weeks. Subjective Date/time seen: 06/13/24 07:41 Interval history: No chest pain or sob. Exam Const: General: cooperative, healthy appearing and comfortable Orientation/consciousness: oriented to person, oriented to place and oriented to time Resp: Auscultation: clear to auscultation bilaterally, no crackles, no rales, no rhonchi and no wheezes Cardio: Rate: regular rate Rhythm: regular rhythm Heart sounds: no murmurs Neuro: General: oriented to person, oriented to place and oriented to time Extrem: Right lower extremity: no edema Left lower extremity: no edema Objective Data Vital Signs Vital Signs: Vital Signs - 24 hr 06/12/24 08:00 06/12/24 08:21 06/12/24 14:36 Temperature 98.3 F Pulse Rate 81 Respiratory Rate 18 Blood Pressure 110/57 L Pulse Oximetry 92 98 Oxygen Delivery Room Air Room Air 06/12/24 20:00 06/12/24 21:26 06/13/24 06:00 Temperature 97.5 F L 97.1 F L Pulse Rate 81 79 81 Respiratory Rate 18 16 12 Blood Pressure 177/89 H 168/89 H Pulse Oximetry 98 97 96 Oxygen Delivery Room Air Intake/Output Intake/Output: Intake & Output 06/10/24 06/11/24 06/12/24 06/13/24 23:59 23:59 23:59 23:59 Intake Total 50 790 1590 300 Output Total 1475 2825 200 Balance 50 -322 -1239 100 Meds/Results Medications: Active Medications Generic Name Dose Route Start Last Admin Trade Name Freq PRN Reason Stop Dose Admin Atorvastatin Calcium 40 mg 06/12/24 09:00 06/12/24 08:39 Atorvastatin 40 Mg Tablet PO 40 mg DAILY DONNA Administration Buspirone HCl 5 mg 06/11/24 17:00 06/12/24 17:27 Buspirone Hcl 5 Mg Tablet PO 5 mg BID DONNA Administration Dextrose 12.5 gm 06/11/24 16:37 Dextrose 50% 25 Gm/50 Ml Syringe IV PUSH PRN PRN Hypoglycemia Protocol Famotidine 20 mg 06/11/24 21:00 06/12/24 20:09 Famotidine 20 Mg Tablet PO 20 mg Q12HR DONNA Administration Furosemide 40 mg 06/12/24 09:00 06/12/24 08:39 Furosemide Inj 40 Mg/4 Ml Vial IV PUSH 40 mg DAILY DONNA Administration Glucagon 1 mg 06/11/24 16:37 Glucagon For Inj 1 Mg Vial IM PRN PRN Hypoglycemia Protocol Glucose 15 gm 06/11/24 16:37 Glucose Oral Gel 15 Gm Of Glucse In 37.5 Gm Tube PO PRN PRN Hypoglycemia Protocol Dextrose 1,000 mls @ 100 mls/hr 06/11/24 16:37 Dextrose 5% 1,000 Ml IVPB PRN PRN Hypoglycemia Protocol Insulin Aspart 4 units 06/11/24 17:00 06/12/24 17:32 Insulin Aspart (*Bkc) 100 Units/Ml 0.05 units/kg (4 units) 4 units SUB-Q Administration TIDWM DONNA Melatonin 3 mg 06/12/24 21:00 06/12/24 20:09 Melatonin 3 Mg Tablet PO 3 mg HS DONNA Administration Perflutren Lipid Microsphere 0 ml 06/10/24 20:16 Perflutren Lipid Microspheres 1.5 Ml Vial Diluted To 10 Ml Total Volume IV PUSH 06/13/24 20:19 ONCE PRN adequate visualization Protocol Tamsulosin HCl 0.4 mg 06/11/24 21:00 06/12/24 20:09 Tamsulosin Hcl 0.4 Mg Capsule PO 0.4 mg QHS DONNA Administration Radiology Results: ITS Impressions Abdomen/Pelvis CTA 06/10/24 19:16 IMPRESSION: 1. Moderate-sized bilateral pleural effusions. 2. Right inguinal hernia containing fat. Chest X-Ray 06/12/24 15:42 IMPRESSION: New subsegmental left medial basilar atelectasis/consolidation. Mild interstitial edema, similar to slightly improved. Interval resolution of the small bilateral pleural effusions. Labs Labs: Laboratory Results - last 24 hr 06/12/24 06/12/24 06/12/24 08:06 12:52 16:51 POC Capillary Glucose 154 H 291 H 241 H 06/12/24 20:28 POC Capillary Glucose 105
[2024-06-13 08:35] LABS: Glucose Point of Care 136 mg/dl (65-105)
[2024-06-13] MEDS: ATORVASTATIN 40 MG TABLET PO (08:42)
[2024-06-13] MEDS: FUROSEMIDE 40 MG TABLET PO (08:42)
[2024-06-13] MEDS: FAMOTIDINE 20 MG TABLET PO (08:42)
[2024-06-13] MEDS: INSULIN ASPART (*BKC) 100 UNITS/ML SUB-Q ×2 (08:43→14:00)
[2024-06-13] MEDS: busPIRone HCL 5 MG TABLET PO (08:43)
[2024-06-13 12:01] LABS: Glucose Point of Care 210 mg/dl (65-105)
--- NOTE | 2024-06-13 13:27 | P.DS_ITS ---
DS: Admitting Diagnosis Discharge Date 06/13/2024 DS: Summary Hospital Course Hospital Course: 83-year-old male with past medical history significant for coronary artery disease, type diabetes mellitus, benign prostatic hyperplasia, dyslipidemia, GERD, peripheral neuropathy. Patient presents to the emergency room due to swelling of the face and shortness of breath with changes of his voice as well. Patient still has edema in his face, his on IV Lasix for pulmonary edema, plan to repeat chest x-ray in the morning and possible discharge. Time Spent with Patient Time attestation: Total time spent providing and/or coordinating discharge services: DS: Data Data Completed and Pending Labs on day of discharge: Labs from last 24 hours 06/13/24 06/13/24 06/12/24 11:19 07:32 20:28 POC Capillary Glucose 210 H 136 H 105 06/12/24 16:51 POC Capillary Glucose 241 H Discharge Plan Discharge Attending physician on discharge: Jamee Ha Consulting providers: Haresh Carrion Discharging Clinician: Jamee Ha Anticipated Discharge Date/Time: 06/13/24 13:14 Patient Disposition: Home, Self-Care Activity: may shower Diet: regular Discharge Instructions: Follow up with your PCP next week Prescribed an epi pen for emergencies only. You should read the instructions and watch a video demonstrating how to use every month, or ask the pharmacist for assistance if you have questions. You should only use it for sudden facial/mouth swelling or a severe allergic reaction. You should also call 911 if you feel you need to use it. Dial first if easy to do that, then use the pen while you are on the phone. Discuss follow up with an agricultural produce commission agent with your PCP. Changed the esomeprazole to famotidine for now because it can treat reflux and allergies Patient Instructions: Antibiotic Form Patient Language: Slovenian Stand Alone Forms: General Discharge Information Follow-up/Referrals: Jean Claude,MD Sebastian [Primary Care Provider] - Discharge Medications: New furosemide 40 mg Tablet 40 mg PO DAILY Qty: 30 0RF famotidine 20 mg Tablet 20 mg PO Q12HR 30 Days Qty: 60 0RF epinephrine 0.1 mg/0.1 mL auto-injector 0.1 mg IM Q5-15M Qty: 2 1RF loratadine 10 mg capsule 10 mg PO DAILY Qty: 30 0RF Continued tamsulosin 0.4 mg capsule 0.4 mg PO QHS atorvastatin 40 mg tablet 40 mg PO DAILY metformin 500 mg tablet 500 mg PO DAILY buspirone 5 mg tablet 5 mg PO BID fludrocortisone 0.1 mg tablet 0.1 mg PO BID magnesium oxide 400 mg (241.3 mg magnesium) tablet 400 mg PO BID midodrine 10 mg tablet 10 mg PO TID Discontinued esomeprazole magnesium [Nexium] 20 mg Capsule,Delayed Release(Dr/Ec) 20 mg PO BID Date of admission: 06/10/24 20:16 Primary Care Provider: HariSebastian Admitting Provider: Stephanie Weber V. Attending physician on admission: Jamee Ha Condition: Stable
[2024-06-13 14:00] VITALS: BP 138/71; PULSE 80; RESP 18; TEMP 36.4; O2SAT 96
== END 2024-06-13 15:25 | disposition home or self-care (01) ==
LOC: ANHED 16:55 → ANHIMU 21:06 → ANH3MEDSUR 06-11 15:41
PROVIDERS: Student in an Organized Health Care Education/Training Program; Admitting Provider Internal Medicine; Emergency Provider Emergency Medicine; PCP Internal Medicine; Visit Provider Nurse Practitioner Acute Care
DX: T78.3XXA Angioneurotic edema, initial encounter (principal); I25.10 Atherosclerotic heart disease of native coronary artery without angina pectoris; I11.0 Hypertensive heart disease with heart failure; I50.9 Heart failure, unspecified; I49.3 Ventricular premature depolarization; I48.91 Unspecified atrial fibrillation; K21.9 Gastro-esophageal reflux disease without esophagitis; N40.0 Benign prostatic hyperplasia without lower urinary tract symptoms; E78.5 Hyperlipidemia, unspecified; E11.42 Type 2 diabetes mellitus with diabetic polyneuropathy; R79.89 Other specified abnormal findings of blood chemistry; Z20.822 Contact with and (suspected) exposure to COVID-19; Z79.82 Long term (current) use of aspirin; Z79.84 Long term (current) use of oral hypoglycemic drugs; Z79.899 Other long term (current) drug therapy; Z95.0 Presence of cardiac pacemaker; Z95.5 Presence of coronary angioplasty implant and graft; Z98.890 Other specified postprocedural states
CPT/HCPCS: 36415; 71045; 74174; 80053; 82948; 83690; 83880; 84484; 85025; 87637; 93005; 93306; 94640; 96372; 96374; 96375; 99285; A9270; G0378; J0171; J1815; J1940; J2550; J2919; Q9967